=== PATIENT | female | born 1940 | race Caucasian/White ===

== ENCOUNTER 2018-09-29 11:45 | Outpatient (RCR) | payer MEDICARE, SELFPAY ==
--- NOTE | 2018-07-02 16:57 | PT.OPPOC ---
Current Diagnoses Low back pain (07/02/18) Provider Visit Care Team Role Provider Type Carolann Morales PA-C Family Provider Advanced Driver Retraining Instructor Primary Care Provider Specialty: Internal Medicine Address: [address] [place] [address], [id number] Email: Ivone Marshall PA-C Attending Provider Physician Specialty: Internal Medicine Address: [address] [place] [address], [id number] Email: Plan Of Care PT-OP-T Assessment and Plan Start: 06/29/18 14:31 Freq: Status: Active Protocol: Document 06/29/18 14:32 SAK (Rec: 07/02/18 16:54 SAK [id number]) Physical Therapy Assessment Rehab Potential Rehabilitation Potential Good Evaluation Complexity Number of Personal Factors/Comorbidities 3 or More Number of Body Systems Impaired 3 Clinical Presentation at Evaluation Evolving Impairments Impairments Activity Tolerance Pain Posture ROM Goals Five Impairment knowledge deficit Assisted Goal (LTG) Patient will be independent in aquatic exercise program for long-term fitness and pain managment Four Impairment ROM Short Term Goal (STG) Improve PSLR to 70 venkatesh STG Duration 1 month Hat Lining Paster Goal (LTG) Improve PSLR to 80 venkatesh LTG Duration 2 months Three Impairment posture Short Term Goal (STG) Patient to demonstrate good understanding of neutral posture and be able to self correct with minimal cues STG Duration 1 month Assisted Goal (LTG) Patient able to verbalize and demonstrate neutral postural alignment without cues for purposes of back protection and healing. LTG Duration 2 months Two Impairment pain Short Term Goal (STG) Decrease pain to no greater than 3/10 STG Duration 1 month Hat Lining Paster Goal (LTG) Decrease pain to no greater than 1/10 with all usual activities LTG Duration 2 months One Impairment activity tolerance Short Term Goal (STG) Improve Oswestry disability index score to no greater than 20% STG Duration 1 month Assisted Goal (LTG) Improve Oswestry disability index score to no greater than 10% LTG Duration 2 months Assessment Summary Assessment Patient is a 77 y/o female who presents for aquatic therapy due to persistent lumbar pain after fall, despite land-based PT and consistent performance of HEP. Feel she would benefit highly from aquatic PT for bouyancy-supported therapeutic exercises including flexibility, strengthening, core stabilization. She is highly receptive and motivated. Physical Therapy Plan Frequency and Duration Frequency of Treatment 2x/Week Duration of Treatment 2 months Plan of Care Start Date 06/29/18 Plan of Care End Date 09/29/18 Therapeutic Interventions Therapeutic Interventions Aquatic Therapy Self-Care/Home Management Modalities Cold Pack/Ice Massage Next Visit Focus/Plan Next Note Type Treatment Note Next Visit Plan Initiate aquatic therapy Plan of Care Dates Plan of Care Start Date 06/29/18 Plan of Care End Date 09/29/18 Please Sign and Return: I have reviewed this Plan of Care and certify that the skilled therapy services above are required to meet the patient?s needs. Physician Signature Date Printed Name and Credentials Clinical Instructor Signature Printed Name and Credentials
--- NOTE | 2018-07-02 16:57 | PT.OIE ---
Current Diagnoses Low back pain (07/02/18) Provider Visit Care Team Role Provider Type Carolann Morales PA-C Family Provider Advanced Bat Lathe Operator Primary Care Provider Specialty: Internal Medicine Address: [address] [place] [address], [phone] Email: Ivone Marshall PA-C Attending Provider Physician Specialty: Internal Medicine Address: [address] [place] [address], [id number] Email: Physical Therapy Initial Evaluation PT-OP-A Visit Information Start: 06/29/18 14:31 Freq: Status: Active Protocol: Document 06/29/18 14:32 SAK (Rec: 06/29/18 15:16 SAK [id number]) Out-Patient Physical Therapy Visit Information Visit Information Visit Type Initial Evaluation Visit Note 09/26 Visit Start Time 14:32 Visit Stop Time 15:15 Total Visit Minutes 43 Visit Number 1 Number of DOPE HOUSE OPERATOR HELPER Visits 0 PT-OP-B Current Condition Start: 06/29/18 14:31 Freq: Status: Active Protocol: Document 06/29/18 14:32 SAK (Rec: 06/29/18 15:16 SAK [id number]) Current Condition History of Current Condition Onset Date 02/04/18. Current Complaints Function-limiting LBP History of Current Condition Fell onto back backwards while moving furniture. Pain initially severe, getting better but has had aquatic therapy recommended. No back pain prior to this injury. Prior BLADE venkatesh, right 10/25 anterior, left 2007 posterior approach. Prior Treatments and Tests No x-ray. Future Testing and Treatments Planned PT at [facility]. Has HEP, bridging painful, otherwise good spenser for LTR, SLR, prone leg lift, elliptical, DKTC, hamstring stretch, rowing, shoulder rows. Treatment Goals Patient/Caregiver Goals Eliminate LBP. Prior Functional Status Baseline Function- ADL's Independent Baseline Function- Mobility Independent Baseline Function- Gait Independent, no device Baseline Function- Work/School retired, indep with housework and yardwork Current Functional Impairments (Reported) Functional Limitations- ADL's painful Functional Limitations- Mobility/Gait painful Functional Limitations- Work/School housework and yardwork painful Personal Factors Other Personal Factors That May Effect age; 77 Therapy/Recovery PT-OP-C Subjective Start: 06/29/18 14:31 Freq: Status: Active Protocol: Document 06/29/18 14:32 SAK (Rec: 07/02/18 16:54 [facility] [id number]) Patient Questionnaires Oswestry Low Back Index Oswestry Score 34 Oswestry Impairment 20 to 39% Impaired (Score 20- 39) OP-PT Pain Assessment Pain Assessment Grid Paper Pain Assessment Grid Completed Yes Location Bilateral Lower Posterior Back Pain Location Details bilateral lumbar spine Intensity 6 Home Pain Medication Use Pain Medications Used No Pain Behaviors Pain Behaviors Facial Grimacing Wincing PT-OP-F Manual Assessment Start: 06/29/18 14:31 Freq: Status: Active Protocol: Document 06/29/18 14:32 SAK (Rec: 07/02/18 16:54 [facility] [id number]) Manual Assessments Soft Tissue Assessment Soft Tissue Mobility Assessment Decreased soft tissue mobility bilateral lumbar paraspinals Joint Mobility Assessment Joint Mobility Assessment Hypomobile PA's lumbar spine PT-OP-G Mobility & Gait Start: 06/29/18 14:31 Freq: Status: Active Protocol: Document 06/29/18 14:32 SAK (Rec: 07/02/18 16:54 [facility] [id number]) OP Mobility Evaluation Transfers Sit to Stand painful Functional Movements Lifting and Carrying painful Squats painful OP Gait Assessment Gait Deviations General Gait Pattern Decreased Stride Length Decreased Feet Clearance PT-OP-J Posture/Palpation/Skin Start: 06/29/18 14:31 Freq: Status: Active Protocol: Document 06/29/18 14:32 SAK (Rec: 07/02/18 16:54 [facility] [id number]) Posture Evaluation Position Standing T-Spine Posture Increased Kyphosis L-Spine Posture Increased Lordosis Hip Posture (L) Externally Rotated (R) Externally Rotated Palpation Assessment Location lumbar spine Palpation Findings Soft Tissue Tightness Tenderness PT-OP-K Range of Motion Start: 06/29/18 14:31 Freq: Status: Active Protocol: Document 06/29/18 14:32 SAK (Rec: 07/02/18 16:54 [facility] [id number]) Hip Goniometric Range of Motion Hip Measured in Degrees Right Straight Leg Raise 55 Left Hip ROM WFL No Straight Leg Raise 60 Hip ROM Limitations Hip ROM Limitations Soft Tissue Tightness PT-OP-L Special Tests Start: 06/29/18 14:31 Freq: Status: Active Protocol: Document 06/29/18 14:32 [facility] (Rec: 07/02/18 16:54 [facility] [id number]) Special Tests Hip Special Tests SKYE Test Results negative Xavier Test Results positive muscle tightness Scour Test Test Results negative PT-OP-M Strength Start: 06/29/18 14:31 Freq: Status: Active Protocol: Document 06/29/18 14:32 SAK (Rec: 07/02/18 16:54 [facility] [id number]) Trunk Strength Trunk Manual Muscle Testing Testing Position Supine Core Stabilization Poor awareness and ability to activate transverse abdominis and multifidi Hip Strength Hip Manual Muscle Testing Left Flexion (L2) 4 Good Extension (S1) 4- Good- Abduction 4- Good- External Rotation 4- Good- Internal Rotation 4 Good Right Flexion (L2) 4 Good Extension (S1) 4- Good- Abduction 4- Good- External Rotation 4- Good- Internal Rotation 4 Good Knee Strength Knee Manual Muscle Testing Left Flexion (S2) 4 Good Extension (L3) 4+ Good+ Right Flexion (S2) 4 Good Extension (L3) 4+ Good+ Ankle/Foot Strength Ankle and Foot Manual Muscle Testing Left Dorsiflexion (L4) 4+ Good+ Plantarflexion (S1) 4+ Good+ Right Dorsiflexion (L4) 4+ Good+ Plantarflexion (S1) 4+ Good+ PT-OP-Q Treatments Start: 06/29/18 14:31 Freq: Status: Active Protocol: Document 06/29/18 14:32 [facility] (Rec: 07/02/18 16:54 [facility] [id number]) Self-Care/Home Management Treatment Education Patient Education Body Mechanics Posture Other Education core stabilization with all movements and in all positions for back protection, neutral postural alignment using wall as reference; postural isometric PT-OP-R Modalities Start: 06/29/18 14:31 Freq: Status: Active Protocol: Document 06/29/18 14:32 [facility] (Rec: 07/02/18 16:54 [facility] [id number]) Hot Pack/Cold Pack Treatment Cold Pack Patient Position Hooklying Treatment Duration (minutes) 10 PT-OP-T Assessment and Plan Start: 06/29/18 14:31 Freq: Status: Active Protocol: Document 06/29/18 14:32 [facility] (Rec: 07/02/18 16:54 [facility] [id number]) Physical Therapy Assessment Rehab Potential Rehabilitation Potential Good Evaluation Complexity Number of Personal Factors/Comorbidities 3 or More Number of Body Systems Impaired 3 Clinical Presentation at Evaluation Evolving Impairments Impairments Activity Tolerance Pain Posture ROM Goals Five Impairment knowledge deficit Turn Operator Goal (LTG) Patient will be independent in aquatic exercise program for long-term fitness and pain managment Four Impairment ROM Short Term Goal (STG) Improve PSLR to 70 venkatesh STG Duration 1 month Turn Operator Goal (LTG) Improve PSLR to 80 venkatesh LTG Duration 2 months Three Impairment posture Short Term Goal (STG) Patient to demonstrate good understanding of neutral posture and be able to self correct with minimal cues STG Duration 1 month Turn Operator Goal (LTG) Patient able to verbalize and demonstrate neutral postural alignment without cues for purposes of back protection and healing. LTG Duration 2 months Two Impairment pain Short Term Goal (STG) Decrease pain to no greater than 3/10 STG Duration 1 month Half-Way Goal (LTG) Decrease pain to no greater than 1/10 with all usual activities LTG Duration 2 months One Impairment activity tolerance Short Term Goal (STG) Improve Oswestry disability index score to no greater than 20% STG Duration 1 month Half-Way Goal (LTG) Improve Oswestry disability index score to no greater than 10% LTG Duration 2 months Assessment Summary Assessment Patient is a 77 y/o female who presents for aquatic therapy due to persistent lumbar pain after fall, despite land-based PT and consistent performance of HEP. Feel she would benefit highly from aquatic PT for bouyancy-supported therapeutic exercises including flexibility, strengthening, core stabilization. She is highly receptive and motivated. Physical Therapy Plan Frequency and Duration Frequency of Treatment 2x/Week Duration of Treatment 2 months Plan of Care Start Date 06/29/18 Plan of Care End Date 09/29/18 Therapeutic Interventions Therapeutic Interventions Aquatic Therapy Self-Care/Home Management Modalities Cold Pack/Ice Massage Next Visit Focus/Plan Next Note Type Treatment Note Next Visit Plan Initiate aquatic therapy
--- NOTE | 2018-07-03 12:48 | PT.OTN ---
Current Diagnoses Low back pain (07/02/18) Physical Therapy Treatment Note PT-OP-A Visit Information Start: 06/29/18 14:31 Freq: Status: Active Protocol: Document 07/02/18 12:38 SAK (Rec: 07/03/18 12:46 [facility] [id number]) Out-Patient Physical Therapy Visit Information Visit Information Visit Type Treatment Note Visit Note 10/27 Visit Start Time 11:45 Visit Stop Time 12:30 Total Visit Minutes 45 Visit Number 2 Number of COTTON PULLER Visits 0 PT-OP-B Current Condition Start: 06/29/18 14:31 Freq: Status: Active Protocol: Document 06/29/18 14:32 SAK (Rec: 06/29/18 15:16 SAK [id number]) Current Condition History of Current Condition Onset Date 02/04/18. Current Complaints Function-limiting LBP History of Current Condition Fell onto back backwards while moving furniture. Pain initially severe, getting better but has had aquatic therapy recommended. No back pain prior to this injury. Prior BLADE venkatesh, right 10/25 anterior, left 2007 posterior approach. Prior Treatments and Tests No x-ray. Future Testing and Treatments Planned PT at [facility]. Has HEP, bridging painful, otherwise good spenser for LTR, SLR, prone leg lift, elliptical, DKTC, hamstring stretch, rowing, shoulder rows. Treatment Goals Patient/Caregiver Goals Eliminate LBP. Prior Functional Status Baseline Function- ADL's Independent Baseline Function- Mobility Independent Baseline Function- Gait Independent, no device Baseline Function- Work/School retired, indep with housework and yardwork Current Functional Impairments (Reported) Functional Limitations- ADL's painful Functional Limitations- Mobility/Gait painful Functional Limitations- Work/School housework and yardwork painful Personal Factors Other Personal Factors That May Effect age; 77 Therapy/Recovery PT-OP-C Subjective Start: 06/29/18 14:31 Freq: Status: Active Protocol: Document 07/02/18 11:45 SAK (Rec: 07/02/18 16:54 SAK [id number]) OP-PT Subjective Patient Comments Patient Comments No new c/o. Excited to try aquatic therapy. Trying to be more aware of posture and abdominal corseting as instructed. Patient Questionnaires Oswestry Low Back Index Oswestry Score 34 Oswestry Impairment 20 to 39% Impaired (Score 20- 39) OP-PT Pain Assessment Pain Assessment Grid Paper Pain Assessment Grid Completed Yes Location Bilateral Lower Posterior Back Pain Location Details bilateral lumbar spine Intensity 6 Home Pain Medication Use Pain Medications Used No Pain Behaviors Pain Behaviors Facial Grimacing [place]incing PT-OP-F Manual Assessment Start: 06/29/18 14:31 Freq: Status: Active Protocol: Document 06/29/18 14:32 SAK (Rec: 07/02/18 16:54 [facility] [id number]) Manual Assessments Soft Tissue Assessment Soft Tissue Mobility Assessment Decreased soft tissue mobility bilateral lumbar paraspinals Joint Mobility Assessment Joint Mobility Assessment Hypomobile PA's lumbar spine PT-OP-G Mobility & Gait Start: 06/29/18 14:31 Freq: Status: Active Protocol: Document 06/29/18 14:32 SAK (Rec: 07/02/18 16:54 [facility] [id number]) OP Mobility Evaluation Transfers Sit to Stand painful Functional Movements Lifting and Carrying painful Squats painful OP Gait Assessment Gait Deviations General Gait Pattern Decreased Stride Length Decreased Feet Clearance PT-OP-J Posture/Palpation/Skin Start: 06/29/18 14:31 Freq: Status: Active Protocol: Document 06/29/18 14:32 SAK (Rec: 07/02/18 16:54 [facility] [id number]) Posture Evaluation Position Standing T-Spine Posture Increased Kyphosis L-Spine Posture Increased Lordosis Hip Posture (L) Externally Rotated (R) Externally Rotated Palpation Assessment Location lumbar spine Palpation Findings Soft Tissue Tightness Tenderness PT-OP-K Range of Motion Start: 06/29/18 14:31 Freq: Status: Active Protocol: Document 06/29/18 14:32 SAK (Rec: 07/02/18 16:54 [facility] [id number]) Hip Goniometric Range of Motion Hip Measured in Degrees Right Straight Leg Raise 55 Left Hip ROM WFL No Straight Leg Raise 60 Hip ROM Limitations Hip ROM Limitations Soft Tissue Tightness PT-OP-L Special Tests Start: 06/29/18 14:31 Freq: Status: Active Protocol: Document 06/29/18 14:32 SAK (Rec: 07/02/18 16:54 [facility] [id number]) Special Tests Hip Special Tests SKYE Test Results negative Xavier Test Results positive muscle tightness Scour Test Test Results negative PT-OP-M Strength Start: 06/29/18 14:31 Freq: Status: Active Protocol: Document 06/29/18 14:32 SAK (Rec: 07/02/18 16:54 [facility] [id number]) Trunk Strength Trunk Manual Muscle Testing Testing Position Supine Core Stabilization Poor awareness and ability to activate transverse abdominis and multifidi Hip Strength Hip Manual Muscle Testing Left Flexion (L2) 4 Good Extension (S1) 4- Good- Abduction 4- Good- External Rotation 4- Good- Internal Rotation 4 Good Right Flexion (L2) 4 Good Extension (S1) 4- Good- Abduction 4- Good- External Rotation 4- Good- Internal Rotation 4 Good Knee Strength Knee Manual Muscle Testing Left Flexion (S2) 4 Good Extension (L3) 4+ Good+ Right Flexion (S2) 4 Good Extension (L3) 4+ Good+ Ankle/Foot Strength Ankle and Foot Manual Muscle Testing Left Dorsiflexion (L4) 4+ Good+ Plantarflexion (S1) 4+ Good+ Right Dorsiflexion (L4) 4+ Good+ Plantarflexion (S1) 4+ Good+ PT-OP-Q Treatments Start: 06/29/18 14:31 Freq: Status: Active Protocol: Document 06/29/18 14:32 [facility] (Rec: 07/02/18 16:54 [facility] [id number]) Self-Care/Home Management Treatment Education Patient Education Body Mechanics Posture Other Education core stabilization with all movements and in all positions for back protection, neutral postural alignment using wall as reference; postural isometric PT-OP-R Modalities Start: 06/29/18 14:31 Freq: Status: Active Protocol: Document 06/29/18 14:32 [facility] (Rec: 07/02/18 16:54 [facility] [id number]) Hot Pack/Cold Pack Treatment Cold Pack Patient Position Hooklying Treatment Duration (minutes) 10 PT-OP-S Aquatic Treatment Start: 06/29/18 14:31 Freq: Status: Active Protocol: Document 07/02/18 12:38 [facility] (Rec: 07/03/18 12:46 [facility] [id number]) Aquatics Treatment Pool Entry/Exit Pool Entry/Exit Method Stairs Assistance Standby Assistance Water Walking fwd, bck, november Water Level Chest Level Level of Assistance Verbal Cues Lower Extremity Exercises hip flex/ext, ab/ad, circles Body Position Standing Water Level Chest Level Reps/Duration 10 Comments emphasis on core stab Lower Extremity Stretches DKTC, SKTC Body Position Standing Water Level Abbot Comments at wall hamstrings, hip add, IT band Body Position Standing Water Level Chest Level Reps/Duration 2 Comments small ankle floats Upper Extremity Exercises shoulder hor ab/ad, flex/ext Details venkatesh and unil Body Position Standing Water Level Chest Level Comments emphasis on core stab Spinal Exercises rhythmic stabilization Body Position Standing Water Level Chest Level Comments manual resistance at hips; verbal and manual cues Abbot Activities Abbot Activities Bicycle [place] Hip Abduction/Adduction Other Activities deep water hang 1 min x 2 with deep breathing Equipment belt Duration 15 min PT-OP-T Assessment and Plan Start: 06/29/18 14:31 Freq: Status: Active Protocol: Document 07/02/18 12:38 SAK (Rec: 07/03/18 12:46 SAK [id number]) Physical Therapy Assessment Goals Five Impairment knowledge deficit Programs Assistant Goal (LTG) Patient will be independent in aquatic exercise program for long-term fitness and pain managment Four Impairment ROM Short Term Goal (STG) Improve PSLR to 70 venkatesh STG Duration 1 month Assisted Goal (LTG) Improve PSLR to 80 venkatesh LTG Duration 2 months Three Impairment posture Short Term Goal (STG) Patient to demonstrate good understanding of neutral posture and be able to self correct with minimal cues STG Duration 1 month Assisted Goal (LTG) Patient able to verbalize and demonstrate neutral postural alignment without cues for purposes of back protection and healing. LTG Duration 2 months Two Impairment pain Short Term Goal (STG) Decrease pain to no greater than 3/10 STG Duration 1 month Programs Assistant Goal (LTG) Decrease pain to no greater than 1/10 with all usual activities LTG Duration 2 months One Impairment activity tolerance Short Term Goal (STG) Improve Oswestry disability index score to no greater than 20% STG Duration 1 month Programs Assistant Goal (LTG) Improve Oswestry disability index score to no greater than 10% LTG Duration 2 months Assessment Summary Assessment Good tolerance for first aquatic therapy session. Frequent verbal and manual cues for postural alignment and core stab, very challenged with rhythmic stabiization, has difficulty activate transverse abdominis. Physical Therapy Plan Frequency and Duration Frequency of Treatment 2x/Week Duration of Treatment 2 months Plan of Care Start Date 06/29/18 Plan of Care End Date 09/29/18 Next Visit Focus/Plan Next Note Type Treatment Note Next Visit Plan Assess response to first aquatic therapy session, progress with emphasis on core stab, strengthening. Initiate deep water DLS.
--- NOTE | 2018-07-09 13:49 | PT.OTN ---
Current Diagnoses Low back pain (07/09/18) Physical Therapy Treatment Note PT-OP-A Visit Information Start: 06/29/18 14:31 Freq: Status: Active Protocol: Document 07/09/18 10:20 ORION (Rec: 07/09/18 13:49 LJ [id number]) Out-Patient Physical Therapy Visit Information Visit Information Visit Type Aquatic Treatment Note Visit Note 11/24 Visit Start Time 10:20 Visit Stop Time 11:00 Total Visit Minutes 40 Visit Number 3 Number of TRANSITION OF CARE SPECIALIST Visits 1 PT-OP-B Current Condition Start: 06/29/18 14:31 Freq: Status: Active Protocol: Document 06/29/18 14:32 SAK (Rec: 06/29/18 15:16 SAK [id number]) Current Condition History of Current Condition Onset Date 02/04/18. Current Complaints Function-limiting LBP History of Current Condition Fell onto back backwards while moving furniture. Pain initially severe, getting better but has had aquatic therapy recommended. No back pain prior to this injury. Prior BLADE venkatesh, right 10/25 anterior, left 2007 posterior approach. Prior Treatments and Tests No x-ray. Future Testing and Treatments Planned PT at [facility]. Has HEP, bridging painful, otherwise good spenser for LTR, SLR, prone leg lift, elliptical, DKTC, hamstring stretch, rowing, shoulder rows. Treatment Goals Patient/Caregiver Goals Eliminate LBP. Prior Functional Status Baseline Function- ADL's Independent Baseline Function- Mobility Independent Baseline Function- Gait Independent, no device Baseline Function- Work/School retired, indep with housework and yardwork Current Functional Impairments (Reported) Functional Limitations- ADL's painful Functional Limitations- Mobility/Gait painful Functional Limitations- Work/School housework and yardwork painful Personal Factors Other Personal Factors That May Effect age; 77 Therapy/Recovery PT-OP-C Subjective Start: 06/29/18 14:31 Freq: Status: Active Protocol: Document 07/09/18 10:20 ORION (Rec: 07/09/18 13:49 LJ [id number]) OP-PT Subjective Patient Comments Patient Comments Pt reports being very sore after previous aquatic therapy . Claims to be unaware of how to use her core muscles for functional activities. PT-OP-F Manual Assessment Start: 06/29/18 14:31 Freq: Status: Active Protocol: Document 06/29/18 14:32 SAK (Rec: 07/02/18 16:54 SAK [id number]) Manual Assessments Soft Tissue Assessment Soft Tissue Mobility Assessment Decreased soft tissue mobility bilateral lumbar paraspinals Joint Mobility Assessment Joint Mobility Assessment Hypomobile PA's lumbar spine PT-OP-G Mobility & Gait Start: 06/29/18 14:31 Freq: Status: Active Protocol: Document 06/29/18 14:32 SAK (Rec: 07/02/18 16:54 SAK [id number]) OP Mobility Evaluation Transfers Sit to Stand painful Functional Movements Lifting and Carrying painful Squats painful OP Gait Assessment Gait Deviations General Gait Pattern Decreased Stride Length Decreased Feet Clearance PT-OP-J Posture/Palpation/Skin Start: 06/29/18 14:31 Freq: Status: Active Protocol: Document 06/29/18 14:32 SAK (Rec: 07/02/18 16:54 SAK [id number]) Posture Evaluation Position Standing T-Spine Posture Increased Kyphosis L-Spine Posture Increased Lordosis Hip Posture (L) Externally Rotated (R) Externally Rotated Palpation Assessment Location lumbar spine Palpation Findings Soft Tissue Tightness Tenderness PT-OP-K Range of Motion Start: 06/29/18 14:31 Freq: Status: Active Protocol: Document 06/29/18 14:32 SAK (Rec: 07/02/18 16:54 SAK [id number]) Hip Goniometric Range of Motion Hip Measured in Degrees Right Straight Leg Raise 55 Left Hip ROM WFL No Straight Leg Raise 60 Hip ROM Limitations Hip ROM Limitations Soft Tissue Tightness PT-OP-L Special Tests Start: 06/29/18 14:31 Freq: Status: Active Protocol: Document 06/29/18 14:32 SAK (Rec: 07/02/18 16:54 [facility] [id number]) Special Tests Hip Special Tests SKYE Test Results negative Xavier Test Results positive muscle tightness Scour Test Test Results negative PT-OP-M Strength Start: 06/29/18 14:31 Freq: Status: Active Protocol: Document 06/29/18 14:32 SAK (Rec: 07/02/18 16:54 SAK [id number]) Trunk Strength Trunk Manual Muscle Testing Testing Position Supine Core Stabilization Poor awareness and ability to activate transverse abdominis and multifidi Hip Strength Hip Manual Muscle Testing Left Flexion (L2) 4 Good Extension (S1) 4- Good- Abduction 4- Good- External Rotation 4- Good- Internal Rotation 4 Good Right Flexion (L2) 4 Good Extension (S1) 4- Good- Abduction 4- Good- External Rotation 4- Good- Internal Rotation 4 Good Knee Strength Knee Manual Muscle Testing Left Flexion (S2) 4 Good Extension (L3) 4+ Good+ Right Flexion (S2) 4 Good Extension (L3) 4+ Good+ Ankle/Foot Strength Ankle and Foot Manual Muscle Testing Left Dorsiflexion (L4) 4+ Good+ Plantarflexion (S1) 4+ Good+ Right Dorsiflexion (L4) 4+ Good+ Plantarflexion (S1) 4+ Good+ PT-OP-Q Treatments Start: 06/29/18 14:31 Freq: Status: Active Protocol: Document 06/29/18 14:32 SAK (Rec: 07/02/18 16:54 SAK [id number]) Self-Care/Home Management Treatment Education Patient Education Body Mechanics Posture Other Education core stabilization with all movements and in all positions for back protection, neutral postural alignment using wall as reference; postural isometric PT-OP-R Modalities Start: 06/29/18 14:31 Freq: Status: Active Protocol: Document 06/29/18 14:32 SAK (Rec: 07/02/18 16:54 SAK [id number]) Hot Pack/Cold Pack Treatment Cold Pack Patient Position Hooklying Treatment Duration (minutes) 10 PT-OP-S Aquatic Treatment Start: 06/29/18 14:31 Freq: Status: Active Protocol: Document 07/09/18 10:20 LJ (Rec: 07/09/18 13:49 LJ [id number]) Aquatics Treatment Pool Entry/Exit Pool Entry/Exit Method Stairs Assistance Standby Assistance Water Walking fwd, bck, november Water Level Chest Level Level of Assistance Contact Guard Assistance Comments verbal and tactile cues for core stab and posture Lower Extremity Exercises hip flex/ext, ab/ad, circles Body Position Standing Water Level Chest Level Reps/Duration 15 Comments emphasis on core stab. w/ perturbations Spinal Exercises rhythmic stabilization Body Position Standing Water Level Chest Level Comments manual resist at hips, shoulders, ant/post [place] Activities [place] Activities Bicycle Equipment belt Duration 10 Comments belt inadequate for proper floatation. Added noodle but pt unable to manage. Developed cramping in R quads PT-OP-T Assessment and Plan Start: 06/29/18 14:31 Freq: Status: Active Protocol: Document 07/09/18 10:20 ORION (Rec: 07/09/18 13:49 LJ [id number]) Physical Therapy Assessment Goals Five Impairment knowledge deficit Mcfp Goal (LTG) Patient will be independent in aquatic exercise program for long-term fitness and pain managment Four Impairment ROM Short Term Goal (STG) Improve PSLR to 70 venkatesh STG Duration 1 month Mcfp Goal (LTG) Improve PSLR to 80 venkatesh LTG Duration 2 months Three Impairment posture Short Term Goal (STG) Patient to demonstrate good understanding of neutral posture and be able to self correct with minimal cues STG Duration 1 month Mcfp Goal (LTG) Patient able to verbalize and demonstrate neutral postural alignment without cues for purposes of back protection and healing. LTG Duration 2 months Two Impairment pain Short Term Goal (STG) Decrease pain to no greater than 3/10 STG Duration 1 month Composition Instructor Goal (LTG) Decrease pain to no greater than 1/10 with all usual activities LTG Duration 2 months One Impairment activity tolerance Short Term Goal (STG) Improve Oswestry disability index score to no greater than 20% STG Duration 1 month Composition Instructor Goal (LTG) Improve Oswestry disability index score to no greater than 10% LTG Duration 2 months Assessment Summary Assessment Good tolerance for aquatic therapy. Much less movement today than previous session. Improved with TA activation and postural awareness. Continues to require verbal and tactile cues. Increased core stability with rhythmic stabilization. Physical Therapy Plan Frequency and Duration Frequency of Treatment 2x/Week Duration of Treatment 2 months Plan of Care Start Date 06/29/18 Plan of Care End Date 09/29/18 Next Visit Focus/Plan Next Note Type Treatment Note Next Visit Plan Continue to challange core stabilization with static and dynamic exercises. Reevaluate deep water floatation device. Increase posterior chain strength in upper and lower extremeties.
--- NOTE | 2018-08-20 09:49 | PT.OPDS ---
Current Diagnoses Low back pain (07/09/18) Provider Visit Care Team Role Provider Type Carolann Morales PA-C Family Provider Advanced English Teacher Primary Care Provider Specialty: Internal Medicine Address: [address] [place] [address], [id number] Email: Ivone Marshall PA-C Attending Provider Physician Specialty: Internal Medicine Address: [address] [place] [address], [address] Email: Visit Number Visit Number 3 Discharge Summary PT-OP-B Current Condition Start: 06/29/18 14:31 Freq: Status: Active Protocol: Document 06/29/18 14:32 SAK (Rec: 06/29/18 15:16 SAK [id number]) Current Condition History of Current Condition Onset Date 02/04/18. Current Complaints Function-limiting LBP History of Current Condition Fell onto back backwards while moving furniture. Pain initially severe, getting better but has had aquatic therapy recommended. No back pain prior to this injury. Prior BLADE venkatesh, right 10/25 anterior, left 2007 posterior approach. Prior Treatments and Tests No x-ray. Future Testing and Treatments Planned PT at [facility]. Has HEP, bridging painful, otherwise good spenser for LTR, SLR, prone leg lift, elliptical, DKTC, hamstring stretch, rowing, shoulder rows. Treatment Goals Patient/Caregiver Goals Eliminate LBP. Prior Functional Status Baseline Function- ADL's Independent Baseline Function- Mobility Independent Baseline Function- Gait Independent, no device Baseline Function- Work/School retired, indep with housework and yardwork Current Functional Impairments (Reported) Functional Limitations- ADL's painful Functional Limitations- Mobility/Gait painful Functional Limitations- Work/School housework and yardwork painful Personal Factors Other Personal Factors That May Effect age; 77 Therapy/Recovery PT-OP-C Subjective Start: 06/29/18 14:31 Freq: Status: Active Protocol: Document 07/09/18 10:20 LJ (Rec: 07/09/18 13:49 LJ [id number]) OP-PT Subjective Patient Comments Patient Comments Pt reports being very sore after previous aquatic therapy . Claims to be unaware of how to use her core muscles for functional activities. PT-OP-F Manual Assessment Start: 06/29/18 14:31 Freq: Status: Active Protocol: Document 06/29/18 14:32 SAK (Rec: 07/02/18 16:54 SAK [id number]) Manual Assessments Soft Tissue Assessment Soft Tissue Mobility Assessment Decreased soft tissue mobility bilateral lumbar paraspinals Joint Mobility Assessment Joint Mobility Assessment Hypomobile PA's lumbar spine PT-OP-G Mobility & Gait Start: 06/29/18 14:31 Freq: Status: Active Protocol: Document 06/29/18 14:32 SAK (Rec: 07/02/18 16:54 SAK [id number]) OP Mobility Evaluation Transfers Sit to Stand painful Functional Movements Lifting and Carrying painful Squats painful OP Gait Assessment Gait Deviations General Gait Pattern Decreased Stride Length Decreased Feet Clearance PT-OP-J Posture/Palpation/Skin Start: 06/29/18 14:31 Freq: Status: Active Protocol: Document 06/29/18 14:32 SAK (Rec: 07/02/18 16:54 SAK [id number]) Posture Evaluation Position Standing T-Spine Posture Increased Kyphosis L-Spine Posture Increased Lordosis Hip Posture (L) Externally Rotated (R) Externally Rotated Palpation Assessment Location lumbar spine Palpation Findings Soft Tissue Tightness Tenderness PT-OP-K Range of Motion Start: 06/29/18 14:31 Freq: Status: Active Protocol: Document 06/29/18 14:32 SAK (Rec: 07/02/18 16:54 SAK [id number]) Hip Goniometric Range of Motion Hip Measured in Degrees Right Straight Leg Raise 55 Left Hip ROM WFL No Straight Leg Raise 60 Hip ROM Limitations Hip ROM Limitations Soft Tissue Tightness PT-OP-L Special Tests Start: 06/29/18 14:31 Freq: Status: Active Protocol: Document 06/29/18 14:32 SAK (Rec: 07/02/18 16:54 SAK [id number]) Special Tests Hip Special Tests SKYE Test Results negative Xavier Test Results positive muscle tightness Scour Test Test Results negative PT-OP-M Strength Start: 06/29/18 14:31 Freq: Status: Active Protocol: Document 06/29/18 14:32 SAK (Rec: 07/02/18 16:54 SAK [id number]) Trunk Strength Trunk Manual Muscle Testing Testing Position Supine Core Stabilization Poor awareness and ability to activate transverse abdominis and multifidi Hip Strength Hip Manual Muscle Testing Left Flexion (L2) 4 Good Extension (S1) 4- Good- Abduction 4- Good- External Rotation 4- Good- Internal Rotation 4 Good Right Flexion (L2) 4 Good Extension (S1) 4- Good- Abduction 4- Good- External Rotation 4- Good- Internal Rotation 4 Good Knee Strength Knee Manual Muscle Testing Left Flexion (S2) 4 Good Extension (L3) 4+ Good+ Right Flexion (S2) 4 Good Extension (L3) 4+ Good+ Ankle/Foot Strength Ankle and Foot Manual Muscle Testing Left Dorsiflexion (L4) 4+ Good+ Plantarflexion (S1) 4+ Good+ Right Dorsiflexion (L4) 4+ Good+ Plantarflexion (S1) 4+ Good+ PT-OP-T Assessment and Plan Start: 06/29/18 14:31 Freq: Status: Active Protocol: Document 08/03/18 09:48 GLORIA (Rec: 08/20/18 09:49 [facility] [id number]) Physical Therapy Assessment Progress Towards Goals Progress Towards Goals Slow Progress due to Medical Issues Physical Therapy Plan Discharge Physical Therapy Discharge Reasons Patient Request Discharge Comments see above
--- NOTE | 2018-09-09 08:11 | PT.OTN ---
Current Diagnoses Low back pain (09/08/18) Physical Therapy Treatment Note PT-OP-A Visit Information Start: 06/29/18 14:31 Freq: Status: Active Protocol: Document 09/08/18 11:45 [facility] (Rec: 09/09/18 08:10 [facility] [id number]) Out-Patient Physical Therapy Visit Information Visit Information Visit Type Treatment Note Visit Note Patient requests resume PT due to improved health, wants to try aquatic PT again to see if it is something she feels she can continue for the heatlh of her back. PT-OP-B Current Condition Start: 06/29/18 14:31 Freq: Status: Active Protocol: Document 06/29/18 14:32 SAK (Rec: 06/29/18 15:16 SAK [id number]) Current Condition History of Current Condition Onset Date 02/04/18. Current Complaints Function-limiting LBP History of Current Condition Fell onto back backwards while moving furniture. Pain initially severe, getting better but has had aquatic therapy recommended. No back pain prior to this injury. Prior BLADE venkatesh, right 10/25 anterior, left 2007 posterior approach. Prior Treatments and Tests No x-ray. Future Testing and Treatments Planned PT at [facility]. Has HEP, bridging painful, otherwise good spenser for LTR, SLR, prone leg lift, elliptical, DKTC, hamstring stretch, rowing, shoulder rows. Treatment Goals Patient/Caregiver Goals Eliminate LBP. Prior Functional Status Baseline Function- ADL's Independent Baseline Function- Mobility Independent Baseline Function- Gait Independent, no device Baseline Function- Work/School retired, indep with housework and yardwork Current Functional Impairments (Reported) Functional Limitations- ADL's painful Functional Limitations- Mobility/Gait painful Functional Limitations- Work/School housework and yardwork painful Personal Factors Other Personal Factors That May Effect age; 77 Therapy/Recovery PT-OP-C Subjective Start: 06/29/18 14:31 Freq: Status: Active Protocol: Document 09/08/18 11:45 [facility] (Rec: 09/09/18 08:11 [facility] [id number]) OP-PT Subjective Patient Comments Patient Comments Patient reports UTI's have resolved, wants to try aquatic PT again. PT-OP-F Manual Assessment Start: 06/29/18 14:31 Freq: Status: Active Protocol: Document 06/29/18 14:32 SAK (Rec: 07/02/18 16:54 [facility] [id number]) Manual Assessments Soft Tissue Assessment Soft Tissue Mobility Assessment Decreased soft tissue mobility bilateral lumbar paraspinals Joint Mobility Assessment Joint Mobility Assessment Hypomobile PA's lumbar spine PT-OP-G Mobility & Gait Start: 06/29/18 14:31 Freq: Status: Active Protocol: Document 06/29/18 14:32 [facility] (Rec: 07/02/18 16:54 SAK [id number]) OP Mobility Evaluation Transfers Sit to Stand painful Functional Movements Lifting and Carrying painful Squats painful OP Gait Assessment Gait Deviations General Gait Pattern Decreased Stride Length Decreased Feet Clearance PT-OP-J Posture/Palpation/Skin Start: 06/29/18 14:31 Freq: Status: Active Protocol: Document 06/29/18 14:32 [facility] (Rec: 07/02/18 16:54 [facility] [id number]) Posture Evaluation Position Standing T-Spine Posture Increased Kyphosis L-Spine Posture Increased Lordosis Hip Posture (L) Externally Rotated (R) Externally Rotated Palpation Assessment Location lumbar spine Palpation Findings Soft Tissue Tightness Tenderness PT-OP-K Range of Motion Start: 06/29/18 14:31 Freq: Status: Active Protocol: Document 06/29/18 14:32 [facility] (Rec: 07/02/18 16:54 [facility] [id number]) Hip Goniometric Range of Motion Hip Measured in Degrees Right Straight Leg Raise 55 Left Hip ROM WFL No Straight Leg Raise 60 Hip ROM Limitations Hip ROM Limitations Soft Tissue Tightness PT-OP-L Special Tests Start: 06/29/18 14:31 Freq: Status: Active Protocol: Document 06/29/18 14:32 [facility] (Rec: 07/02/18 16:54 [facility] [id number]) Special Tests Hip Special Tests SKYE Test Results negative Xavier Test Results positive muscle tightness Scour Test Test Results negative PT-OP-M Strength Start: 06/29/18 14:31 Freq: Status: Active Protocol: Document 06/29/18 14:32 [facility] (Rec: 07/02/18 16:54 [facility] [id number]) Trunk Strength Trunk Manual Muscle Testing Testing Position Supine Core Stabilization Poor awareness and ability to activate transverse abdominis and multifidi Hip Strength Hip Manual Muscle Testing Left Flexion (L2) 4 Good Extension (S1) 4- Good- Abduction 4- Good- External Rotation 4- Good- Internal Rotation 4 Good Right Flexion (L2) 4 Good Extension (S1) 4- Good- Abduction 4- Good- External Rotation 4- Good- Internal Rotation 4 Good Knee Strength Knee Manual Muscle Testing Left Flexion (S2) 4 Good Extension (L3) 4+ Good+ Right Flexion (S2) 4 Good Extension (L3) 4+ Good+ Ankle/Foot Strength Ankle and Foot Manual Muscle Testing Left Dorsiflexion (L4) 4+ Good+ Plantarflexion (S1) 4+ Good+ Right Dorsiflexion (L4) 4+ Good+ Plantarflexion (S1) 4+ Good+ PT-OP-Q Treatments Start: 06/29/18 14:31 Freq: Status: Active Protocol: Document 06/29/18 14:32 [facility] (Rec: 07/02/18 16:54 [facility] [id number]) Self-Care/Home Management Treatment Education Patient Education Body Mechanics Posture Other Education core stabilization with all movements and in all positions for back protection, neutral postural alignment using wall as reference; postural isometric PT-OP-R Modalities Start: 06/29/18 14:31 Freq: Status: Active Protocol: Document 06/29/18 14:32 [facility] (Rec: 07/02/18 16:54 [facility] [id number]) Hot Pack/Cold Pack Treatment Cold Pack Patient Position Hooklying Treatment Duration (minutes) 10 PT-OP-S Aquatic Treatment Start: 06/29/18 14:31 Freq: Status: Active Protocol: Document 09/08/18 11:45 [facility] (Rec: 09/09/18 08:10 [facility] [id number]) Aquatics Treatment Pool Entry/Exit Pool Entry/Exit Method Stairs Assistance Standby Assistance Water Walking fwd, bck, november Water Level Chest Level Level of Assistance Contact Guard Assistance Comments verbal and tactile cues for core stab and posture Lower Extremity Exercises hip flex/ext, ab/ad, circles Body Position Standing Water Level Chest Level Reps/Duration 10 Comments emphasis on core stab. w/ perturbations Lower Extremity Stretches hamstrings, hip add, IT band Body Position Standing Water Level Chest Level Reps/Duration 2 Comments small ankle floats Upper Extremity Exercises shoulder hor ab/ad, flex/ext Details venkatesh and unil Body Position Standing Water Level Chest Level Comments emphasis on core stab [place] Activities [place] Activities Bicycle [place] Running Equipment noodle in front Duration 10 PT-OP-T Assessment and Plan Start: 06/29/18 14:31 Freq: Status: Active Protocol: Document 09/08/18 11:45 GLORIA (Rec: 09/09/18 08:10 [facility] [id number]) Physical Therapy Assessment Goals Five Impairment knowledge deficit Custodial Goal (LTG) Patient will be independent in aquatic exercise program for long-term fitness and pain managment Four Impairment ROM Short Term Goal (STG) Improve PSLR to 70 venkatesh STG Duration 1 month Electronics Engineering Professor Goal (LTG) Improve PSLR to 80 venkatesh LTG Duration 2 months Three Impairment posture Short Term Goal (STG) Patient to demonstrate good understanding of neutral posture and be able to self correct with minimal cues STG Duration 1 month Electronics Engineering Professor Goal (LTG) Patient able to verbalize and demonstrate neutral postural alignment without cues for purposes of back protection and healing. LTG Duration 2 months Two Impairment pain Short Term Goal (STG) Decrease pain to no greater than 3/10 STG Duration 1 month Custodial Goal (LTG) Decrease pain to no greater than 1/10 with all usual activities LTG Duration 2 months One Impairment activity tolerance Short Term Goal (STG) Improve Oswestry disability index score to no greater than 20% STG Duration 1 month Electronics Engineering Professor Goal (LTG) Improve Oswestry disability index score to no greater than 10% LTG Duration 2 months Assessment Summary Assessment Patient demonstrated improved postural awareness today during aquatic therapy, more receptive to continuing as she feels it decreases her pain and allows for movement. Physical Therapy Plan Next Visit Focus/Plan Next Note Type Treatment Note Next Visit Plan Progress with aquatic therapy exercises for core stabilization, strengthening, flexibility.
--- NOTE | 2018-09-16 15:06 | PT.OTN ---
Current Diagnoses Low back pain (09/15/18) Physical Therapy Treatment Note PT-OP-A Visit Information Start: 06/29/18 14:31 Freq: Status: Active Protocol: Document 09/15/18 11:45 SAK (Rec: 09/16/18 15:06 [facility] [id number]) Out-Patient Physical Therapy Visit Information Visit Information Visit Type Treatment Note Visit Start Time 11:45 Visit Stop Time 12:30 Total Visit Minutes 45 Visit Number 5 Number of ROTO MIXER OPERATOR Visits 0 PT-OP-B Current Condition Start: 06/29/18 14:31 Freq: Status: Active Protocol: Document 06/29/18 14:32 SAK (Rec: 06/29/18 15:16 SAK [id number]) Current Condition History of Current Condition Onset Date 02/04/18. Current Complaints Function-limiting LBP History of Current Condition Fell onto back backwards while moving furniture. Pain initially severe, getting better but has had aquatic therapy recommended. No back pain prior to this injury. Prior BLADE venkatesh, right 10/25 anterior, left 2007 posterior approach. Prior Treatments and Tests No x-ray. Future Testing and Treatments Planned PT at [facility]. Has HEP, bridging painful, otherwise good spenser for LTR, SLR, prone leg lift, elliptical, DKTC, hamstring stretch, rowing, shoulder rows. Treatment Goals Patient/Caregiver Goals Eliminate LBP. Prior Functional Status Baseline Function- ADL's Independent Baseline Function- Mobility Independent Baseline Function- Gait Independent, no device Baseline Function- Work/School retired, indep with housework and yardwork Current Functional Impairments (Reported) Functional Limitations- ADL's painful Functional Limitations- Mobility/Gait painful Functional Limitations- Work/School housework and yardwork painful Personal Factors Other Personal Factors That May Effect age; 77 Therapy/Recovery PT-OP-C Subjective Start: 06/29/18 14:31 Freq: Status: Active Protocol: Document 09/15/18 11:45 SAK (Rec: 09/16/18 15:06 SAK [id number]) OP-PT Subjective Patient Comments Patient Comments Tolerated last aquatic PT session well, states she is glad she didn't wimp out and quit aquatic therapy. PT-OP-F Manual Assessment Start: 06/29/18 14:31 Freq: Status: Active Protocol: Document 06/29/18 14:32 SAK (Rec: 07/02/18 16:54 SAK [id number]) Manual Assessments Soft Tissue Assessment Soft Tissue Mobility Assessment Decreased soft tissue mobility bilateral lumbar paraspinals Joint Mobility Assessment Joint Mobility Assessment Hypomobile PA's lumbar spine PT-OP-G Mobility & Gait Start: 06/29/18 14:31 Freq: Status: Active Protocol: Document 06/29/18 14:32 SAK (Rec: 07/02/18 16:54 SAK [id number]) OP Mobility Evaluation Transfers Sit to Stand painful Functional Movements Lifting and Carrying painful Squats painful OP Gait Assessment Gait Deviations General Gait Pattern Decreased Stride Length Decreased Feet Clearance PT-OP-J Posture/Palpation/Skin Start: 06/29/18 14:31 Freq: Status: Active Protocol: Document 06/29/18 14:32 SAK (Rec: 07/02/18 16:54 SAK [id number]) Posture Evaluation Position Standing T-Spine Posture Increased Kyphosis L-Spine Posture Increased Lordosis Hip Posture (L) Externally Rotated (R) Externally Rotated Palpation Assessment Location lumbar spine Palpation Findings Soft Tissue Tightness Tenderness PT-OP-K Range of Motion Start: 06/29/18 14:31 Freq: Status: Active Protocol: Document 06/29/18 14:32 SAK (Rec: 07/02/18 16:54 [facility] [id number]) Hip Goniometric Range of Motion Hip Measured in Degrees Right Straight Leg Raise 55 Left Hip ROM WFL No Straight Leg Raise 60 Hip ROM Limitations Hip ROM Limitations Soft Tissue Tightness PT-OP-L Special Tests Start: 06/29/18 14:31 Freq: Status: Active Protocol: Document 06/29/18 14:32 SAK (Rec: 07/02/18 16:54 [facility] [id number]) Special Tests Hip Special Tests SKYE Test Results negative Xavier Test Results positive muscle tightness Scour Test Test Results negative PT-OP-M Strength Start: 06/29/18 14:31 Freq: Status: Active Protocol: Document 06/29/18 14:32 SAK (Rec: 07/02/18 16:54 SAK [id number]) Trunk Strength Trunk Manual Muscle Testing Testing Position Supine Core Stabilization Poor awareness and ability to activate transverse abdominis and multifidi Hip Strength Hip Manual Muscle Testing Left Flexion (L2) 4 Good Extension (S1) 4- Good- Abduction 4- Good- External Rotation 4- Good- Internal Rotation 4 Good Right Flexion (L2) 4 Good Extension (S1) 4- Good- Abduction 4- Good- External Rotation 4- Good- Internal Rotation 4 Good Knee Strength Knee Manual Muscle Testing Left Flexion (S2) 4 Good Extension (L3) 4+ Good+ Right Flexion (S2) 4 Good Extension (L3) 4+ Good+ Ankle/Foot Strength Ankle and Foot Manual Muscle Testing Left Dorsiflexion (L4) 4+ Good+ Plantarflexion (S1) 4+ Good+ Right Dorsiflexion (L4) 4+ Good+ Plantarflexion (S1) 4+ Good+ PT-OP-Q Treatments Start: 06/29/18 14:31 Freq: Status: Active Protocol: Document 06/29/18 14:32 [facility] (Rec: 07/02/18 16:54 [facility] [id number]) Self-Care/Home Management Treatment Education Patient Education Body Mechanics Posture Other Education core stabilization with all movements and in all positions for back protection, neutral postural alignment using wall as reference; postural isometric PT-OP-R Modalities Start: 06/29/18 14:31 Freq: Status: Active Protocol: Document 06/29/18 14:32 [facility] (Rec: 07/02/18 16:54 [facility] [id number]) Hot Pack/Cold Pack Treatment Cold Pack Patient Position Hooklying Treatment Duration (minutes) 10 PT-OP-S Aquatic Treatment Start: 06/29/18 14:31 Freq: Status: Active Protocol: Document 09/15/18 11:45 [facility] (Rec: 09/16/18 15:06 [facility] [id number]) Aquatics Treatment Pool Entry/Exit Pool Entry/Exit Method Stairs Assistance Standby Assistance Water Walking fwd, bck, november Water Level Chest Level Level of Assistance Contact Guard Assistance Comments verbal and tactile cues for core stab and posture Lower Extremity Exercises hip flex/ext, ab/ad, circles Body Position Standing Water Level Chest Level Reps/Duration 10 Comments emphasis on core stab. w/ perturbations Lower Extremity Stretches DKTC, SKTC Body Position Standing Water Level [place] Comments at wall hamstrings, hip add, IT band Body Position Standing Water Level Chest Level Reps/Duration 2x Comments small noodle Upper Extremity Exercises shoulder hor ab/ad, flex/ext Details venkatesh and unil Body Position Standing Water Level Chest Level Comments emphasis on core stab [place] Activities [place] Activities Bicycle Cross Country Running Equipment noodle in front Duration 10 PT-OP-T Assessment and Plan Start: 06/29/18 14:31 Freq: Status: Active Protocol: Document 09/15/18 11:45 GLORIA (Rec: 09/16/18 15:06 SAK [id number]) Physical Therapy Assessment Goals Five Impairment knowledge deficit Jd Edwards Goal (LTG) Patient will be independent in aquatic exercise program for long-term fitness and pain managment Four Impairment ROM Short Term Goal (STG) Improve PSLR to 70 venkatesh STG Duration 1 month Jd Edwards Goal (LTG) Improve PSLR to 80 venkatesh LTG Duration 2 months Three Impairment posture Short Term Goal (STG) Patient to demonstrate good understanding of neutral posture and be able to self correct with minimal cues STG Duration 1 month Retirement Goal (LTG) Patient able to verbalize and demonstrate neutral postural alignment without cues for purposes of back protection and healing. LTG Duration 2 months Two Impairment pain Short Term Goal (STG) Decrease pain to no greater than 3/10 STG Duration 1 month Retirement Goal (LTG) Decrease pain to no greater than 1/10 with all usual activities LTG Duration 2 months One Impairment activity tolerance Short Term Goal (STG) Improve Oswestry disability index score to no greater than 20% STG Duration 1 month Jd Edwards Goal (LTG) Improve Oswestry disability index score to no greater than 10% LTG Duration 2 months Assessment Summary Assessment Tolerated session well today with decreased assist or cues needed for postural control with deep water ex. Physical Therapy Plan Frequency and Duration Frequency of Treatment 2x/Week Duration of Treatment 2 months Plan of Care Start Date 06/29/18 Plan of Care End Date 09/29/18 Next Visit Focus/Plan Next Note Type Treatment Note Next Visit Plan Progress with aquatic therapy exercises for core stabilization, strengthening, flexibility.
--- NOTE | 2018-09-23 16:24 | PT.OTN ---
Current Diagnoses Low back pain (09/22/18) Physical Therapy Treatment Note PT-OP-A Visit Information Start: 06/29/18 14:31 Freq: Status: Active Protocol: Document 09/22/18 11:45 SAK (Rec: 09/23/18 16:24 [facility] [id number]) Out-Patient Physical Therapy Visit Information Visit Information Visit Type Aquatic Treatment Note Visit Start Time 11:45 Visit Stop Time 12:30 Total Visit Minutes 45 Visit Number 6 Number of SUB MASTER Visits 0 PT-OP-B Current Condition Start: 06/29/18 14:31 Freq: Status: Active Protocol: Document 06/29/18 14:32 SAK (Rec: 06/29/18 15:16 SAK [id number]) Current Condition History of Current Condition Onset Date 02/04/18. Current Complaints Function-limiting LBP History of Current Condition Fell onto back backwards while moving furniture. Pain initially severe, getting better but has had aquatic therapy recommended. No back pain prior to this injury. Prior BLADE venkatesh, right 10/25 anterior, left 2007 posterior approach. Prior Treatments and Tests No x-ray. Future Testing and Treatments Planned PT at [facility]. Has HEP, bridging painful, otherwise good spenser for LTR, SLR, prone leg lift, elliptical, DKTC, hamstring stretch, rowing, shoulder rows. Treatment Goals Patient/Caregiver Goals Eliminate LBP. Prior Functional Status Baseline Function- ADL's Independent Baseline Function- Mobility Independent Baseline Function- Gait Independent, no device Baseline Function- Work/School retired, indep with housework and yardwork Current Functional Impairments (Reported) Functional Limitations- ADL's painful Functional Limitations- Mobility/Gait painful Functional Limitations- Work/School housework and yardwork painful Personal Factors Other Personal Factors That May Effect age; 77 Therapy/Recovery PT-OP-C Subjective Start: 06/29/18 14:31 Freq: Status: Active Protocol: Document 09/22/18 11:45 SAK (Rec: 09/23/18 16:24 [facility] [id number]) OP-PT Subjective Patient Comments Patient Comments Reports feeling aquatic therapy helping, feeling stronger, less pain, more aware of core musculature. PT-OP-F Manual Assessment Start: 06/29/18 14:31 Freq: Status: Active Protocol: Document 06/29/18 14:32 SAK (Rec: 07/02/18 16:54 SAK [id number]) Manual Assessments Soft Tissue Assessment Soft Tissue Mobility Assessment Decreased soft tissue mobility bilateral lumbar paraspinals Joint Mobility Assessment Joint Mobility Assessment Hypomobile PA's lumbar spine PT-OP-G Mobility & Gait Start: 06/29/18 14:31 Freq: Status: Active Protocol: Document 06/29/18 14:32 SAK (Rec: 07/02/18 16:54 [facility] [id number]) OP Mobility Evaluation Transfers Sit to Stand painful Functional Movements Lifting and Carrying painful Squats painful OP Gait Assessment Gait Deviations General Gait Pattern Decreased Stride Length Decreased Feet Clearance PT-OP-J Posture/Palpation/Skin Start: 06/29/18 14:31 Freq: Status: Active Protocol: Document 06/29/18 14:32 SAK (Rec: 07/02/18 16:54 [facility] [id number]) Posture Evaluation Position Standing T-Spine Posture Increased Kyphosis L-Spine Posture Increased Lordosis Hip Posture (L) Externally Rotated (R) Externally Rotated Palpation Assessment Location lumbar spine Palpation Findings Soft Tissue Tightness Tenderness PT-OP-K Range of Motion Start: 06/29/18 14:31 Freq: Status: Active Protocol: Document 06/29/18 14:32 SAK (Rec: 07/02/18 16:54 [facility] [id number]) Hip Goniometric Range of Motion Hip Measured in Degrees Right Straight Leg Raise 55 Left Hip ROM WFL No Straight Leg Raise 60 Hip ROM Limitations Hip ROM Limitations Soft Tissue Tightness PT-OP-L Special Tests Start: 06/29/18 14:31 Freq: Status: Active Protocol: Document 06/29/18 14:32 SAK (Rec: 07/02/18 16:54 [facility] [id number]) Special Tests Hip Special Tests SKYE Test Results negative Xavier Test Results positive muscle tightness Scour Test Test Results negative PT-OP-M Strength Start: 06/29/18 14:31 Freq: Status: Active Protocol: Document 06/29/18 14:32 SAK (Rec: 07/02/18 16:54 [facility] [id number]) Trunk Strength Trunk Manual Muscle Testing Testing Position Supine Core Stabilization Poor awareness and ability to activate transverse abdominis and multifidi Hip Strength Hip Manual Muscle Testing Left Flexion (L2) 4 Good Extension (S1) 4- Good- Abduction 4- Good- External Rotation 4- Good- Internal Rotation 4 Good Right Flexion (L2) 4 Good Extension (S1) 4- Good- Abduction 4- Good- External Rotation 4- Good- Internal Rotation 4 Good Knee Strength Knee Manual Muscle Testing Left Flexion (S2) 4 Good Extension (L3) 4+ Good+ Right Flexion (S2) 4 Good Extension (L3) 4+ Good+ Ankle/Foot Strength Ankle and Foot Manual Muscle Testing Left Dorsiflexion (L4) 4+ Good+ Plantarflexion (S1) 4+ Good+ Right Dorsiflexion (L4) 4+ Good+ Plantarflexion (S1) 4+ Good+ PT-OP-Q Treatments Start: 06/29/18 14:31 Freq: Status: Active Protocol: Document 06/29/18 14:32 [facility] (Rec: 07/02/18 16:54 [facility] [id number]) Self-Care/Home Management Treatment Education Patient Education Body Mechanics Posture Other Education core stabilization with all movements and in all positions for back protection, neutral postural alignment using wall as reference; postural isometric PT-OP-R Modalities Start: 06/29/18 14:31 Freq: Status: Active Protocol: Document 06/29/18 14:32 [facility] (Rec: 07/02/18 16:54 [facility] [id number]) Hot Pack/Cold Pack Treatment Cold Pack Patient Position Hooklying Treatment Duration (minutes) 10 PT-OP-S Aquatic Treatment Start: 06/29/18 14:31 Freq: Status: Active Protocol: Document 09/22/18 11:45 [facility] (Rec: 09/23/18 16:24 [facility] [id number]) Aquatics Treatment Pool Entry/Exit Pool Entry/Exit Method Stairs Assistance Standby Assistance Water Walking fwd, bck, november Water Level Chest Level Walking Equipment small resistance fins Level of Assistance Contact Guard Assistance Comments verbal and tactile cues for core stab and posture Lower Extremity Exercises hip flex/ext, ab/ad, circles Body Position Standing Water Level Chest Level Equipment small resistance fins Reps/Duration 10 Comments emphasis on core stab. w/ perturbations Lower Extremity Stretches DKTC, SKTC Body Position Standing Water Level [place] Comments at wall hamstrings, hip add, IT band Body Position Standing Water Level Chest Level Reps/Duration 2x Comments small noodle Upper Extremity Exercises shoulder hor ab/ad, flex/ext Details venkatesh and unil Body Position Standing Water Level Chest Level Comments emphasis on core stab [place] Activities [place] Activities Bicycle Cross [place] Running Equipment noodle in front Duration 10 PT-OP-T Assessment and Plan Start: 06/29/18 14:31 Freq: Status: Active Protocol: Document 09/22/18 11:45 [facility] (Rec: 09/23/18 16:24 SAK [id number]) Physical Therapy Assessment Goals Five Impairment knowledge deficit Snf Goal (LTG) Patient will be independent in aquatic exercise program for long-term fitness and pain managment Four Impairment ROM Short Term Goal (STG) Improve PSLR to 70 venkatesh STG Duration 1 month [place] Goal (LTG) Improve PSLR to 80 venkatesh LTG Duration 2 months Three Impairment posture Short Term Goal (STG) Patient to demonstrate good understanding of neutral posture and be able to self correct with minimal cues STG Duration 1 month Snf Goal (LTG) Patient able to verbalize and demonstrate neutral postural alignment without cues for purposes of back protection and healing. LTG Duration 2 months Two Impairment pain Short Term Goal (STG) Decrease pain to no greater than 3/10 STG Duration 1 month [place] Goal (LTG) Decrease pain to no greater than 1/10 with all usual activities LTG Duration 2 months One Impairment activity tolerance Short Term Goal (STG) Improve Oswestry disability index score to no greater than 20% STG Duration 1 month [place] Goal (LTG) Improve Oswestry disability index score to no greater than 10% LTG Duration 2 months Assessment Summary Assessment Progressing well, able to tolerate resistance fins on ankles today with shallow water ex. Improving postura awareness. Physical Therapy Plan Frequency and Duration Frequency of Treatment 2x/Week Duration of Treatment 2 months Plan of Care Start Date 06/29/18 Plan of Care End Date 09/29/18 Next Visit Focus/Plan Next Note Type Treatment Note Next Visit Plan Continue progression of aquatic PT. Add deep water DLS ex.
--- NOTE | 2018-09-29 15:25 | PT.OTN ---
Current Diagnoses Low back pain (09/29/18) Physical Therapy Treatment Note PT-OP-A Visit Information Start: 06/29/18 14:31 Freq: Status: Active Protocol: Document 09/29/18 11:45 LJ (Rec: 09/29/18 15:25 LJ [id number]) Out-Patient Physical Therapy Visit Information Visit Information Visit Type Aquatic Treatment Note Visit Start Time 11:45 Visit Stop Time 12:30 Total Visit Minutes 45 Visit Number 7 Number of HEALTH ACTUARY Visits 1 PT-OP-B Current Condition Start: 06/29/18 14:31 Freq: Status: Active Protocol: Document 06/29/18 14:32 SAK (Rec: 06/29/18 15:16 SAK [id number]) Current Condition History of Current Condition Onset Date 02/04/18. Current Complaints Function-limiting LBP History of Current Condition Fell onto back backwards while moving furniture. Pain initially severe, getting better but has had aquatic therapy recommended. No back pain prior to this injury. Prior BLADE venkatesh, right 10/25 anterior, left 2007 posterior approach. Prior Treatments and Tests No x-ray. Future Testing and Treatments Planned PT at [facility]. Has HEP, bridging painful, otherwise good spenser for LTR, SLR, prone leg lift, elliptical, DKTC, hamstring stretch, rowing, shoulder rows. Treatment Goals Patient/Caregiver Goals Eliminate LBP. Prior Functional Status Baseline Function- ADL's Independent Baseline Function- Mobility Independent Baseline Function- Gait Independent, no device Baseline Function- Work/School retired, indep with housework and yardwork Current Functional Impairments (Reported) Functional Limitations- ADL's painful Functional Limitations- Mobility/Gait painful Functional Limitations- Work/School housework and yardwork painful Personal Factors Other Personal Factors That May Effect age; 77 Therapy/Recovery PT-OP-C Subjective Start: 06/29/18 14:31 Freq: Status: Active Protocol: Document 09/29/18 11:45 LJ (Rec: 09/29/18 15:25 LJ [id number]) OP-PT Subjective Patient Comments Patient Comments Pt states aquatic therapy is helping her strengthen her core muscles and makes her back feel better PT-OP-F Manual Assessment Start: 06/29/18 14:31 Freq: Status: Active Protocol: Document 06/29/18 14:32 SAK (Rec: 07/02/18 16:54 SAK [id number]) Manual Assessments Soft Tissue Assessment Soft Tissue Mobility Assessment Decreased soft tissue mobility bilateral lumbar paraspinals Joint Mobility Assessment Joint Mobility Assessment Hypomobile PA's lumbar spine PT-OP-G Mobility & Gait Start: 06/29/18 14:31 Freq: Status: Active Protocol: Document 06/29/18 14:32 SAK (Rec: 07/02/18 16:54 SAK [id number]) OP Mobility Evaluation Transfers Sit to Stand painful Functional Movements Lifting and Carrying painful Squats painful OP Gait Assessment Gait Deviations General Gait Pattern Decreased Stride Length Decreased Feet Clearance PT-OP-J Posture/Palpation/Skin Start: 06/29/18 14:31 Freq: Status: Active Protocol: Document 06/29/18 14:32 SAK (Rec: 07/02/18 16:54 SAK [id number]) Posture Evaluation Position Standing T-Spine Posture Increased Kyphosis L-Spine Posture Increased Lordosis Hip Posture (L) Externally Rotated (R) Externally Rotated Palpation Assessment Location lumbar spine Palpation Findings Soft Tissue Tightness Tenderness PT-OP-K Range of Motion Start: 06/29/18 14:31 Freq: Status: Active Protocol: Document 06/29/18 14:32 SAK (Rec: 07/02/18 16:54 [facility] [id number]) Hip Goniometric Range of Motion Hip Measured in Degrees Right Straight Leg Raise 55 Left Hip ROM WFL No Straight Leg Raise 60 Hip ROM Limitations Hip ROM Limitations Soft Tissue Tightness PT-OP-L Special Tests Start: 06/29/18 14:31 Freq: Status: Active Protocol: Document 06/29/18 14:32 SAK (Rec: 07/02/18 16:54 [facility] [id number]) Special Tests Hip Special Tests SKYE Test Results negative Xavier Test Results positive muscle tightness Scour Test Test Results negative PT-OP-M Strength Start: 06/29/18 14:31 Freq: Status: Active Protocol: Document 06/29/18 14:32 SAK (Rec: 07/02/18 16:54 SAK [id number]) Trunk Strength Trunk Manual Muscle Testing Testing Position Supine Core Stabilization Poor awareness and ability to activate transverse abdominis and multifidi Hip Strength Hip Manual Muscle Testing Left Flexion (L2) 4 Good Extension (S1) 4- Good- Abduction 4- Good- External Rotation 4- Good- Internal Rotation 4 Good Right Flexion (L2) 4 Good Extension (S1) 4- Good- Abduction 4- Good- External Rotation 4- Good- Internal Rotation 4 Good Knee Strength Knee Manual Muscle Testing Left Flexion (S2) 4 Good Extension (L3) 4+ Good+ Right Flexion (S2) 4 Good Extension (L3) 4+ Good+ Ankle/Foot Strength Ankle and Foot Manual Muscle Testing Left Dorsiflexion (L4) 4+ Good+ Plantarflexion (S1) 4+ Good+ Right Dorsiflexion (L4) 4+ Good+ Plantarflexion (S1) 4+ Good+ PT-OP-Q Treatments Start: 06/29/18 14:31 Freq: Status: Active Protocol: Document 06/29/18 14:32 SAK (Rec: 07/02/18 16:54 SAK [id number]) Self-Care/Home Management Treatment Education Patient Education Body Mechanics Posture Other Education core stabilization with all movements and in all positions for back protection, neutral postural alignment using wall as reference; postural isometric PT-OP-R Modalities Start: 06/29/18 14:31 Freq: Status: Active Protocol: Document 06/29/18 14:32 SAK (Rec: 07/02/18 16:54 SAK [id number]) Hot Pack/Cold Pack Treatment Cold Pack Patient Position Hooklying Treatment Duration (minutes) 10 PT-OP-S Aquatic Treatment Start: 06/29/18 14:31 Freq: Status: Active Protocol: Document 09/29/18 11:45 LJ (Rec: 09/29/18 15:25 LJ [id number]) Aquatics Treatment Pool Entry/Exit Pool Entry/Exit Method Stairs Assistance Independent Water Walking fwd, bck, november Water Level Chest Level Walking Equipment small resistance fins Level of Assistance Contact Guard Assistance Comments verbal and tactile cues for core stab and posture Lower Extremity Exercises mountain climbers Body Position Standing Water Level Chest Level Reps/Duration 30 sec x2 Comments slow w/o impact hip flex/ext, ab/ad, circles Body Position Standing Water Level Chest Level Equipment small resistance fins Reps/Duration 10 Comments emphasis on core stab. w/ perturbations Lower Extremity Stretches hamstrings and soleus Details at wall DKTC, SKTC Body Position Standing Water Level Lawrence Comments at wall hamstrings, hip add, IT band Body Position Standing Water Level Chest Level Reps/Duration 2x Comments small noodle Upper Extremity Exercises shoulder hor ab/ad, flex/ext Details venkatesh and unil Body Position Standing Water Level Chest Level Comments emphasis on core stab Spinal Exercises side to side rotation w/paddle Water Level Chest Level Equipment UE paddles Comments squat position, multiple cues for form rhythmic stabilization Body Position Standing Water Level Chest Level Comments manual resist at hips, shoulders, ant/post Lawrence Activities Lawrence Activities Bicycle Equipment noodle in front Duration 15 PT-OP-T Assessment and Plan Start: 06/29/18 14:31 Freq: Status: Active Protocol: Document 09/29/18 11:45 ORION (Rec: 09/29/18 15:25 LJ [id number]) Physical Therapy Assessment Goals Five Impairment knowledge deficit Jail Goal (LTG) Patient will be independent in aquatic exercise program for long-term fitness and pain managment Four Impairment ROM Short Term Goal (STG) Improve PSLR to 70 venkatesh STG Duration 1 month Windows Consultant Goal (LTG) Improve PSLR to 80 venkatesh LTG Duration 2 months Three Impairment posture Short Term Goal (STG) Patient to demonstrate good understanding of neutral posture and be able to self correct with minimal cues STG Duration 1 month Windows Consultant Goal (LTG) Patient able to verbalize and demonstrate neutral postural alignment without cues for purposes of back protection and healing. LTG Duration 2 months Two Impairment pain Short Term Goal (STG) Decrease pain to no greater than 3/10 STG Duration 1 month Jail Goal (LTG) Decrease pain to no greater than 1/10 with all usual activities LTG Duration 2 months One Impairment activity tolerance Short Term Goal (STG) Improve Oswestry disability index score to no greater than 20% STG Duration 1 month Windows Consultant Goal (LTG) Improve Oswestry disability index score to no greater than 10% LTG Duration 2 months Assessment Summary Assessment Pt talking about core muscles and which ones she was using with different exercises. Demonstrates knowledge of what to do however pt lacks coordination and requires multiple cues for using upper body and lower body at the same time in more advanced exercises. Physical Therapy Plan Frequency and Duration Frequency of Treatment 2x/Week Duration of Treatment 2 months Plan of Care Start Date 06/29/18 Plan of Care End Date 09/29/18 Therapeutic Interventions Therapeutic Interventions Aquatic Therapy Self-Care/Home Management Modalities Cold Pack/Ice Massage Discharge Physical Therapy Discharge Reasons Patient Request Discharge Comments see above Next Visit Focus/Plan Next Note Type Treatment Note Next Visit Plan Provide pt with aquatic HEP. Pt will attend one more session then discharge.
--- NOTE | 2018-12-29 14:01 | PT.OPDS ---
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 Current Complaints Function-limiting LBP History of Current Condition Fell onto back backwards while moving furniture. Pain initially severe, getting better but has had aquatic therapy recommended. No back pain prior to this injury. Prior BLADE venkatesh, right 10/25 anterior, left 2007 posterior approach. Prior Treatments and Tests No x-ray. Future Testing and Treatments Planned PT at [facility]. Has HEP, bridging painful, otherwise good spenser for LTR, SLR, prone leg lift, elliptical, DKTC, hamstring stretch, rowing, shoulder rows. Treatment Goals Patient/Caregiver Goals Eliminate LBP. Prior Functional Status Baseline Function- ADL's Independent Baseline Function- Mobility Independent Baseline Function- Gait Independent, no device Baseline Function- Work/School retired, indep with housework and yardwork Current Functional Impairments (Reported) Functional Limitations- ADL's painful Functional Limitations- Mobility/Gait painful Functional Limitations- Work/School housework and yardwork painful Personal Factors Other Personal Factors That May Effect age; 77 Therapy/Recovery PT-OP-C Subjective Start: 06/29/18 14:31 Freq: Status: Active Protocol: Document 09/29/18 11:45 LJ (Rec: 09/29/18 15:25 LJ [email or web address]) OP-PT Subjective Patient Comments Patient Comments Pt states aquatic therapy is helping her strengthen her core muscles and makes her back feel better PT-OP-F Manual Assessment Start: 06/29/18 14:31 Freq: Status: Active Protocol: Document 06/29/18 14:32 SAK (Rec: 07/02/18 16:54 SAK [id number]) Manual Assessments Soft Tissue Assessment Soft Tissue Mobility Assessment Decreased soft tissue mobility bilateral lumbar paraspinals Joint Mobility Assessment Joint Mobility Assessment Hypomobile PA's lumbar spine PT-OP-G Mobility & Gait Start: 06/29/18 14:31 Freq: Status: Active Protocol: Document 06/29/18 14:32 SAK (Rec: 07/02/18 16:54 SAK [id number]) OP Mobility Evaluation Transfers Sit to Stand painful Functional Movements Lifting and Carrying painful Squats painful OP Gait Assessment Gait Deviations General Gait Pattern Decreased Stride Length Decreased Feet Clearance PT-OP-J Posture/Palpation/Skin Start: 06/29/18 14:31 Freq: Status: Active Protocol: Document 06/29/18 14:32 SAK (Rec: 07/02/18 16:54 SAK [id number]) Posture Evaluation Position Standing T-Spine Posture Increased Kyphosis L-Spine Posture Increased Lordosis Hip Posture (L) Externally Rotated (R) Externally Rotated Palpation Assessment Location lumbar spine Palpation Findings Soft Tissue Tightness Tenderness PT-OP-K Range of Motion Start: 06/29/18 14:31 Freq: Status: Active Protocol: Document 06/29/18 14:32 SAK (Rec: 07/02/18 16:54 SAK [id number]) Hip Goniometric Range of Motion Hip Measured in Degrees Right Straight Leg Raise 55 Left Hip ROM WFL No Straight Leg Raise 60 Hip ROM Limitations Hip ROM Limitations Soft Tissue Tightness PT-OP-L Special Tests Start: 06/29/18 14:31 Freq: Status: Active Protocol: Document 06/29/18 14:32 SAK (Rec: 07/02/18 16:54 SAK [id number]) Special Tests Hip Special Tests SKYE Test Results negative Xavier Test Results positive muscle tightness Scour Test Test Results negative PT-OP-M Strength Start: 06/29/18 14:31 Freq: Status: Active Protocol: Document 06/29/18 14:32 SAK (Rec: 07/02/18 16:54 SAK [id number]) Trunk Strength Trunk Manual Muscle Testing Testing Position Supine Core Stabilization Poor awareness and ability to activate transverse abdominis and multifidi Hip Strength Hip Manual Muscle Testing Left Flexion (L2) 4 Good Extension (S1) 4- Good- Abduction 4- Good- External Rotation 4- Good- Internal Rotation 4 Good Right Flexion (L2) 4 Good Extension (S1) 4- Good- Abduction 4- Good- External Rotation 4- Good- Internal Rotation 4 Good Knee Strength Knee Manual Muscle Testing Left Flexion (S2) 4 Good Extension (L3) 4+ Good+ Right Flexion (S2) 4 Good Extension (L3) 4+ Good+ Ankle/Foot Strength Ankle and Foot Manual Muscle Testing Left Dorsiflexion (L4) 4+ Good+ Plantarflexion (S1) 4+ Good+ Right Dorsiflexion (L4) 4+ Good+ Plantarflexion (S1) 4+ Good+ PT-OP-T Assessment and Plan Start: 06/29/18 14:31 Freq: Status: Active Protocol: Document 12/29/18 14:00 GLORIA (Rec: 12/29/18 14:01 GLORIA [id number]) Physical Therapy Plan Discharge Physical Therapy Discharge Reasons Goals Met
== END 2018-12-29 15:31 | disposition home or self-care (01) ==
LOC: PHYS 11:45
PROVIDERS: Family Provider Physician Assistant; PCP Physician Assistant; Visit Provider Student in an Organized Health Care Education/Training Program
DX: M54.5 Low back pain (principal)
CPT/HCPCS: 97113; 97162; 97535

== ENCOUNTER → 2018-10-28 16:23 | Outpatient (CLI) | payer MEDICARE, SELFPAY ==
--- NOTE | 2018-10-28 | DI.RAD.S_ITS ---
PROCEDURE: XR FOOT LT MIN 3V INDICATIONS: SWELLING, REDNESS, PAIN LEFT HEEL TECHNIQUE: 3 views of the foot were acquired. COMPARISON: None. FINDINGS: Bones: No fractures or dislocations. No suspicious bony lesions. Severe bunion. There is moderate first metatarsophalangeal joint degeneration. Soft tissues: No tibiotalar joint effusion. Achilles tendon appears normal. IMPRESSION: 1. No fracture or dislocation. 2. Severe bunion and moderate first metatarsophalangeal joint degeneration. Dictated by: Fartun Mckeon M.D. on 10/28/2018 at 17:01 Approved by: Fartun Mckeon M.D. on 10/28/2018 at 17:03
== END ==
PROVIDERS: PCP Physician Assistant; Visit Provider Physician Assistant
DX: M79.672 Pain in left foot (principal); M21.612 Bunion of left foot; M19.072 Primary osteoarthritis, left ankle and foot
CPT/HCPCS: 73630

== ENCOUNTER → 2018-11-29 15:36 | Outpatient (CLI) | payer MEDICARE, SELFPAY | PROVIDERS: Family Provider Physician Assistant; PCP Physician Assistant; Visit Provider Internal Medicine Hematology & Oncology | DX: D47.3 Essential (hemorrhagic) thrombocythemia (principal) | CPT/HCPCS: 80053; 82728; 83540; 83550; 83615; 84550; 85025 ==

== ENCOUNTER → 2018-12-23 09:49 | Outpatient (CLI) | payer MEDICARE, SELFPAY ==
--- NOTE | 2018-12-23 09:52 | DI.US.S_ITS ---
PROCEDURE: US ABDOMEN COMPLETE INDICATIONS: ESSENTIAL THROMBOCYTHEMIA (HEMORRHAGIC) TECHNIQUE: Real-time scanning was performed of the abdominal and retroperitoneal organs, with image documentation. COMPARISON: None. FINDINGS: Liver: Liver is normal in size and homogeneous in echotexture. Gallbladder: No findings of gallstones or sludge are seen. The gallbladder wall is not thickened, measuring 3 mm or less. A prominent fold can be seen along the gallbladder neck. No specific pericholecystic fluid is seen. The sonographic Reed sign is negative. Biliary ducts: Intrahepatic bile ducts are non-dilated. Extrahepatic bile duct caliber measures 6 mm. Normal is 6-7 mm or less in diameter, or 10 mm or less post-cholecystectomy. Pancreas: Visualized portions of the pancreas are sonographically normal. Spleen: Spleen is normal in size and homogeneous in echotexture. Kidneys: Kidneys are normal in size and echotexture. Right kidney measures 9.9 cm long; left kidney measures 10 cm long. No hydronephrosis or nephrolithiasis. No solid masses. Multiple right renal cysts are seen, with the largest measuring up to 2.5 along the superior to mid region. Prominent left renal pyramids can also be seen. Aorta: Visualized aorta is normal in caliber at less than 3 cm. Iliacs: Proximal common iliac arteries are normal in caliber at less than 2.5 cm. IVC: Intrahepatic inferior vena cava is patent. Miscellaneous: No free abdominal fluid. IMPRESSION: The liver and spleen demonstrate normal size. Prominent right renal cysts are incidentally noted. Prominent left renal pyramids are also incidentally noted. Dictated by: Maxime Díaz M.D. on 12/23/2018 at 11:02 Approved by: Maxime Díaz M.D. on 12/23/2018 at 11:04
== END ==
PROVIDERS: PCP Physician Assistant; Visit Provider Internal Medicine Hematology & Oncology
DX: D47.3 Essential (hemorrhagic) thrombocythemia (principal); N28.1 Cyst of kidney, acquired
CPT/HCPCS: 76700

== ENCOUNTER → 2019-02-01 10:56 | Outpatient (CLI) | payer MEDICARE, SELFPAY ==
[2019-02-01 11:27] LABS: Add Manual Diff / Slide Review NO; Basophils Absolute Auto 100 /uL (0-100); Basophils Percent Auto 1.1 % (0-2); Eosinophils Absolute Auto 100 /uL (0-450); Hematocrit 37.5 % (36-46); Hemoglobin 12.9 g/dL (12.0-16.0); Lymphocytes Absolute Auto 800 /uL (1100-4500); Lymphocytes Percent Auto 12.1 % (25-40); Mean Corpuscular HGB Conc 34.5 % (30-36); Mean Corpuscular Hemoglobin 31.8 PG (26-34); Mean Corpuscular Volume 92.3 fL (80-100); Monocytes Absolute Auto 500 /uL (0-900); Monocytes Percent Auto 7.7 % (3-14); Neutrophils Absolute Auto 5000 /uL (1500-7000); Neutrophils Percent Auto 77.1 % (50-75); Platelet Count 542 X10^3/uL (150-400); Red Blood Cell Count 4.06 X10^6/uL (4.0-5.2); Red Cell Distribution Width 15.6 % (11.6-14.8); White Blood Cell Count 6.5 X10^3/uL (4.5-11.0)
[2019-02-01 12:04] LABS: Alanine Aminotransferase 33 IU/L (9-52); Albumin 4.3 g/dL (3.5-5.0); Albumin Globulin Ratio 1.5 (1.0-2.8); Alkaline Phosphatase 56 U/L (38-126); Aspartate Aminotransferase 32 IU/L (14-36); BUN Creatinine Ratio 25.7 (6-22); Bilirubin Total 0.6 mg/dL (0.2-1.3); Blood Urea Nitrogen 18 mg/dL (7-17); Calcium 9.7 mg/dL (8.4-10.2); Carbon Dioxide 29 mmol/L (22-32); Chloride 100 mmol/L (98-107); Estimated Glomerular Filt Rate > 60.0 mL/min (>60); Globulin 2.8 g/dL (1.7-4.1); Glucose 88 mg/dL (80-110); HEMOLYSIS < 15 (0-50); Sodium 135 mmol/L (137-145); Total Protein 7.1 g/dL (6.3-8.2)
[2019-02-01 12:05] LABS: Potassium 5.5 mmol/L (3.4-5.1)
== END ==
PROVIDERS: Family Provider Physician Assistant; PCP Physician Assistant; Visit Provider Internal Medicine Hematology & Oncology
DX: D47.3 Essential (hemorrhagic) thrombocythemia (principal)
CPT/HCPCS: 36415; 80053; 85025

== ENCOUNTER → 2019-03-03 11:24 | Outpatient (CLI) | payer MEDICARE, SELFPAY ==
--- NOTE | 2019-03-03 | DI.RAD.S_ITS ---
PROCEDURE: XR LUMBAR SPINE 2-3V INDICATIONS: LOW BACK PAIN, FELL. TECHNIQUE: 3 views of the lumbar spine were acquired. COMPARISON: None. FINDINGS: Bones: 5 [id number] vertebrae are present. There is mild levo scoliosis; otherwise normal bony alignment. There is moderate to severe vertebral body compression fracture with anterior wedge deformity. No suspicious bony lesions. Degenerative disc disease is present, moderate to severe at L2-L3 and L4-L5, mild at L3-L4 and L5-S1. There is moderate to severe facet arthropathy at L4-L5 and L5-S1. Bilateral hip arthroplasty. Soft tissues: Overlying bowel gas pattern is normal. No suspicious soft tissue calcifications. IMPRESSION: 1. Moderate to severe compression fracture of L1 of uncertain chronicity. MRI may be helpful for further evaluation. 2. Multilevel degenerative disc and facet disease. Dictated by: Fartun Mckeon M.D. on 03/03/2019 at 16:40 Approved by: Fartun Mckeon M.D. on 03/03/2019 at 16:44
== END ==
PROVIDERS: PCP Physician Assistant; Visit Provider Chiropractor
DX: M54.5 Low back pain (principal); S32.019A Unspecified fracture of first lumbar vertebra, initial encounter for closed fracture; M51.36 Other intervertebral disc degeneration, lumbar region; M51.37 Other intervertebral disc degeneration, lumbosacral region; M47.816 Spondylosis without myelopathy or radiculopathy, lumbar region; M47.817 Spondylosis without myelopathy or radiculopathy, lumbosacral region; Z96.643 Presence of artificial hip joint, bilateral; W19.XXXA Unspecified fall, initial encounter
CPT/HCPCS: 72100

== ENCOUNTER → 2019-03-07 14:23 | Outpatient (CLI) | payer MEDICARE, SELFPAY | PROVIDERS: PCP Physician Assistant; Visit Provider Internal Medicine | DX: R30.0 Dysuria (principal) | CPT/HCPCS: 87086 ==

== ENCOUNTER → 2019-03-21 11:50 | Outpatient (CLI) | payer MEDICARE, SELFPAY ==
[2019-03-21 12:52] LABS: Add Manual Diff / Slide Review NO; Basophils Absolute Auto 0 /uL (0-100); Basophils Percent Auto 0.7 % (0-2); Eosinophils Absolute Auto 100 /uL (0-450); Eosinophils Percent Auto 1.3 % (2-4); Hematocrit 36.1 % (36-46); Hemoglobin 12.2 g/dL (12.0-16.0); Lymphocytes Absolute Auto 800 /uL (1100-4500); Lymphocytes Percent Auto 17.4 % (25-40); Mean Corpuscular HGB Conc 33.9 % (30-36); Mean Corpuscular Hemoglobin 34.1 PG (26-34); Mean Corpuscular Volume 100.5 fL (80-100); Monocytes Absolute Auto 400 /uL (0-900); Monocytes Percent Auto 7.6 % (3-14); Neutrophils Absolute Auto 3500 /uL (1500-7000); Platelet Count 285 X10^3/uL (150-400); Red Blood Cell Count 3.59 X10^6/uL (4.0-5.2); Red Cell Distribution Width 21.3 % (11.6-14.8); White Blood Cell Count 4.8 X10^3/uL (4.5-11.0)
[2019-03-21 13:28] LABS: Lactate Dehydrogenase 529 U/L (313-618)
[2019-03-21 13:36] LABS: Alanine Aminotransferase 24 IU/L (9-52); Albumin Globulin Ratio 1.4 (1.0-2.8); Alkaline Phosphatase 64 U/L (38-126); Aspartate Aminotransferase 29 IU/L (14-36); Bilirubin Total 0.5 mg/dL (0.2-1.3); Blood Urea Nitrogen 21 mg/dL (7-17); Calcium 9.5 mg/dL (8.4-10.2); Carbon Dioxide 27 mmol/L (22-32); Chloride 102 mmol/L (98-107); Cholesterol 219 mg/dL (140-199); Estimated Glomerular Filt Rate > 60.0 mL/min (>60); Globulin 2.9 g/dL (1.7-4.1); Glucose 89 mg/dL (80-110); HDL Cholesterol 60 mg/dL (40-60); HEMOLYSIS < 15 (0-50); LDL Cholesterol Calculated 142 mg/dL (<100); Potassium 4.7 mmol/L (3.4-5.1); Sodium 138 mmol/L (137-145); Total Protein 6.9 g/dL (6.3-8.2); Triglycerides 84 mg/dL (35-150)
[2019-03-21 13:38] LABS: Anisocytosis 1+
[2019-03-21 13:39] LABS: Macrocytosis 1+
== END ==
PROVIDERS: PCP Physician Assistant; Visit Provider Internal Medicine Hematology & Oncology
DX: D47.3 Essential (hemorrhagic) thrombocythemia (principal)
CPT/HCPCS: 36415; 80053; 80061; 83615; 85025

== ENCOUNTER → 2019-08-16 13:06 | Outpatient (ROUT) | payer MEDICARE, SELFPAY | PROVIDERS: Family Provider Physician Assistant; PCP Physician Assistant; Visit Provider Physician Assistant | DX: R39.9 Unspecified symptoms and signs involving the genitourinary system (principal) | CPT/HCPCS: 87086 ==

== ENCOUNTER 2019-08-24 19:29 | Emergency (ER) | payer MEDICARE, SELFPAY ==
[2019-08-24 19:42] VITALS: BP 192/88; PULSE 69; RESP 18; TEMP 36.8; O2SAT 96; BMI 23.9
--- NOTE | 2019-08-24 19:43 | DI.RAD.S_ITS ---
PROCEDURE: XR CHEST 1V INDICATIONS: hypertension TECHNIQUE: One view of the chest was acquired. COMPARISON: None. FINDINGS: Surgical changes and devices: None. Lungs and pleura: Lungs are edematous. No pleural effusions or pneumothorax. Mediastinum: Mediastinal contours appear normal. Heart size is at the upper limits of normal. Bones and chest wall: No suspicious bony lesions. Overlying soft tissues appear unremarkable. IMPRESSION: Generalized pulmonary edema pattern, suspect cardiogenic origin (acute). Dictated by: Michael Viera M.D. on 08/24/2019 at 20:07 Approved by: Michael Viera M.D. on 08/24/2019 at 20:07
--- NOTE | 2019-08-24 19:44 | DI.CT.S_ITS ---
PROCEDURE: CT HEAD/BRAIN WO CON INDICATIONS: Htn with headache and hx of cva TECHNIQUE: Noncontrast 4.5 mm thick angled axial sections acquired from the foramen magnum to the vertex, with coronal and sagittal reformats. For radiation dose reduction, the following was used: automated exposure control, adjustment of mA and/or kV according to patient size. COMPARISON: None. FINDINGS: Image quality: Excellent. CSF spaces: Basal cisterns are patent. No extra-axial fluid collections. Ventricles are normal in size and shape. Brain: No midline shift. No intracranial masses or hemorrhage. Orozco-white matter interface is normal. Skull and face: Calvarium and visualized facial bones are intact, without suspicious lesions. Sinuses: Visualized sinuses and mastoids are clear. IMPRESSION: Moderate microvascular atherosclerotic change in the deep white matter of each hemisphere, without evidence of intracranial hemorrhage. No sign of stroke or mass. Dictated by: Michael Viera M.D. on 08/24/2019 at 20:07 Approved by: Michael Viera M.D. on 08/24/2019 at 20:08
[2019-08-24] MEDS: SODIUM CHLORIDE 0.9% 1,000 ML 150 ML IV (19:50)
--- NOTE | 2019-08-24 19:56 | ED_ITS ---
HPI - General Adult General Chief complaint: Hypertension Stated complaint: Elevated BP Time Seen by Provider: 08/24/19 19:36 Source: patient Mode of arrival: EMS Limitations: no limitations History of Present Illness HPI narrative: Patient is a 78-year-old female with history of hypertension and previous CVA presenting with elevated blood pressure and mild headaches ongoing for the last few days. She has a low-grade headache earlier today she took her blood pressure noted it was quite elevated is the systolic no 190s. She denies any numbness tingling or weakness she has no chest pain shortness of breath patricia sea vomiting or abdominal pain. She still doesn't feel quite right but she has no headache at this time. Dr. Pantoja for essential thrombocytosis. She was seen evaluated him on 08/22/2019 complaining of some light dizziness flashes of light headache and elevated blood pressure along with anxiety possibly due to Hydrea verses other medical issue. She was taken off Hydrea for a month to see if her symptoms in improved. Her symptoms remain on change 2 days later. Related Data Home Medications Medication Instructions Recorded Confirmed aspirin 81 mg PO DAILY 11/22/18 08/22/19 carvedilol 25 mg PO BID 11/22/18 08/22/19 losartan 50 mg PO BID 11/22/18 08/22/19 simvastatin 10 mg PO QPM 04/25/19 08/22/19 Previous Rx's Medication Instructions Recorded hydroxyurea [Hydrea] 500 mg PO DAILY #30 cap 01/10/19 Allergies Allergy/AdvReac Type Severity Reaction Status Date / Time No Known Drug Allergies Allergy Verified 08/24/19 19:42 Review of Systems Review of Systems Narrative: GENERAL: Denies chills, fatigue, malaise, fever, sweats, travel HEENT: Denies sinus pain, ear pain, sore throat, difficulty swallowing, neck pain RESPIRATORY: Denies dyspnea, cough, wheezing, hemoptysis, sputum. CARDIOVASCULAR: Denies chest pain, palpitations, orthopnea, edema GASTROINTESTINAL: Denies nausea, vomiting, abdominal pain, diarrhea, constipation, melena. : Denies dysuria, frequency, incontinence, hematuria, urinary retention, flank pain. MUSCULOSKELETAL: Denies weakness, joint pain, or bony pain SKIN: No rash, no erythema, no pruritus NEUROLOGIC: Mild headache see HPI PSYCHIATRIC: No concerning psychosocial issues. 12 point review of systems is negative except for those stated above and HPI Patient History Medical History Anxiety and depression (Acute) Bilateral cataracts (Acute) Essential (primary) hypertension (Acute) Essential thrombocytosis (Acute) H/O Mohs micrographic surgery for skin cancer (Acute) Hyperlipidemia (Acute) Osteopenia (Acute) Surgical History History of total right hip replacement (Acute) S/P dilation and curettage (Acute) Status post Mohs surgery (Acute) Status post total hip replacement, left (Acute) Family History Mother Bipolar depression Father Pneumonia Social History Smoking Status: Never smoker alcohol intake: current (wine) substance use type: does not use Smoking Status: Never smoker Substance Use Type: does not use Exam Initial Vital Signs Initial Vital Signs: Vital Signs Temperature 98.2 F 08/24/19 19:42 Pulse Rate 69 08/24/19 19:42 Respiratory Rate 18 08/24/19 19:42 Blood Pressure 192/88 H 08/24/19 19:42 Pulse Oximetry 96 08/24/19 19:42 GENERAL: Well-appearing, well-nourished and in no acute distress. HEENT: Head atraumatic,EOMI, pupils reactive, face symmetric, moist mucous membranes CARDIOVASCULAR: Regular rate and rhythm without murmurs, rubs or gallops. RESPIRATORY: Breath sounds equal bilaterally, no wheezes rales or rhonchi. ABDOMEN: Soft, nontender. Normoactive bowel sounds all 4 quadrants. No guarding or rebound. EXTREMITIES: Normal range of motion, no clubbing or edema. Neurovascularly intact NEUROLOGICAL: Alert and oriented x4.Normal gait and speech. Cranial nerves II through XII grossly intact. 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 Scores NIH Stroke Scale Level of Conciousness: Alert, keenly responsive Ask month/age: Answers both questions correctly. Open/close eyes, close hand: Performs both tasks correctly Best gaze horizontal: Normal Visual james: No visual loss Facial palsy: Normal symetrical movement Left arm drift: No drift for full 10 sec Right arm drift: No drift for full 10 sec Left leg drift: No drift for full 10 sec Right leg drift: No drift for full 10 sec Limb ataxia: Absent Sensory on face/arms/legs: Normal, no sensory loss Best language: No aphasia, normal Dysarthria: Normal Extinction or inattention: No abnormality Total NIH Stroke scale score: 0 Course Orders Ordered: ED Orders 08/24/19 19:15 Complete Blood Count AUTO DIFF Stat Comprehensive Metabolic Panel Stat Lipase Stat Troponin & CK Cardiac Panel Stat 08/24/19 19:43 XR chest 1V Stat 08/24/19 19:44 CT head/brain wo con Stat 08/24/19 19:45 Urine Microscopic Stat 08/24/19 19:46 EKG-12 Lead Stat Discontinued Medications Sodium Chloride (Normal Saline 0.9%) 1,000 mls @ 150 mls/hr IV CONT LIZETH Last Infusion: 08/24/19 21:01 Dose: 0 mls/hr Documented by: Admin: 08/24/19 19:50 Dose: 150 mls/hr Documented by: RL Vital Signs Vital signs: Vital Signs - 8 hr 08/24/19 19:42 08/24/19 20:37 08/24/19 21:01 Temperature 98.2 F Pulse Rate 69 67 68 Respiratory Rate 18 19 16 Blood Pressure 192/88 H Blood Pressure [Left Arm] 170/88 H 160/96 H Pulse Oximetry 96 95 94 Medical Decision Making Lab Data Lab results reviewed: Yes I reviewed the patient's lab results. Result diagrams: 08/24/19 19:15 08/24/19 19:15 Labs: Lab Results 08/24/19 08/24/19 08/24/19 Range/Units 19:15 19:15 19:45 WBC 5.2 (4.5-11.0) X10^3/uL RBC 3.45 L (4.0-5.2) X10^6/uL Hgb 13.6 (12.0-16.0) g/dL Hct 39.1 (36-46) % MCV 113.2 H (80-100) fL MCH 39.4 H (26-34) PG MCHC 34.8 (30-36) % RDW 12.8 (11.6-14.8) % Plt Count 247 (150-400) X10^3/uL Neut % (Auto) 58.8 (50-75) % Lymph % (Auto) 27.1 (25-40) % [place] % (Auto) 11.7 (3-14) % Eos % (Auto) 1.5 L (2-4) % Baso % (Auto) 0.9 (0-2) % Neut # (Auto) 3100 (5807-4499) /uL Lymph # (Auto) 1400 (8707-5799) /uL [place] # (Auto) 600 (0-900) /uL Eos # (Auto) 100 (0-450) /uL Baso # (Auto) 0 (0-100) /uL RBC Morphology See below Macrocytosis 2+ H Sodium 134 L (137-145) mmol/L Potassium 3.5 (3.4-5.1) mmol/L Chloride 94 L (98-107) mmol/L Carbon Dioxide 29 (22-32) mmol/L BUN 21 H (7-17) mg/dL Creatinine 0.70 (0.52-1.04) mg/dL Estimated GFR > 60.0 (>60) mL/min BUN/Creatinine Ratio 30.0 H (6-22) Glucose 102 (80-110) mg/dL Calcium 9.5 (8.4-10.2) mg/dL Total Bilirubin 0.6 (0.2-1.3) mg/dL AST 40 H (14-36) IU/L ALT 23 (<35) IU/L Alkaline Phosphatase 71 (38-126) U/L Total Creatine Kinase 109 (30-135) U/L CK-MB (CK-2) 1.76 (<2.37) ng/mL CK-MB (CK-2) Rel Index 1.6 (1.5-5.0) % Troponin I < 0.012 (0.01-0.034) ng/mL Total Protein 8.1 (6.3-8.2) g/dL Albumin 4.7 (3.5-5.0) g/dL Globulin 3.4 (1.7-4.1) g/dL Albumin/Globulin Ratio 1.4 (1.0-2.8) Lipase 151 (23-300) U/L Urine RBC 0-1/hpf (0-5/HPF) Urine WBC 0-1/hpf (0-5/HPF) Ur Squamous Epith Cells 0-1 /hpf (0-5/HPF) Urine Bacteria None seen (None) Ur Culture Indicated? Cult not indicated Micro UA Comment Microscopic normal Urine Dip Bedside Urine Glucose Negative Bedside Urine Bilirubin - Negative Bedside Urine Ketone - Negative Urine Specific [place] 1.010 Bedside Urine Occult Blood +/- Bedside Urine pH 7.5 Bedside Urine Protein + 30 Bedside Urine Urobilinogen - Negative Bedside Urine Nitrite - Negative Bedside Urine Leukocytes - Negative Esterase Point of care testing: Urine Dip Bedside Urine Glucose Negative Bedside Urine Bilirubin - Negative Bedside Urine Ketone - Negative Urine Specific [place] 1.010 Bedside Urine Occult Blood +/- Bedside Urine pH 7.5 Bedside Urine Protein + 30 Bedside Urine Urobilinogen - Negative Bedside Urine Nitrite - Negative Bedside Urine Leukocytes - Negative Esterase Imaging Data CT scan - head: Radiologist's impression: PROCEDURE: CT HEAD/BRAIN WO CON INDICATIONS: Htn with headache and hx of cva TECHNIQUE: Noncontrast 4.5 mm thick angled axial sections acquired from the foramen magnum to the vertex, with coronal and sagittal reformats. For radiation dose reduction, the following was used: automated exposure control, adjustment of mA and/or kV according to patient size. COMPARISON: None. FINDINGS: Image quality: Excellent. CSF spaces: Basal cisterns are patent. No extra-axial fluid collections. Ventricles are normal in size and shape. Brain: No midline shift. No intracranial masses or hemorrhage. Orozco-white matter interface is normal. Skull and face: Calvarium and visualized facial bones are intact, without suspicious lesions. Sinuses: Visualized sinuses and mastoids are clear. IMPRESSION: Moderate microvascular atherosclerotic change in the deep white matter of each hemisphere, without evidence of intracranial hemorrhage. No sign of stroke or mass. Dictated by: Michael Viera M.D. on 08/24/2019 at 20:07 Chest x-ray: Radiologist's impression: PROCEDURE: XR CHEST 1V INDICATIONS: hypertension TECHNIQUE: One view of the chest was acquired. COMPARISON: None. FINDINGS: Surgical changes and devices: None. Lungs and pleura: Lungs are edematous. No pleural effusions or pneumothorax. Mediastinum: Mediastinal contours appear normal. Heart size is at the upper limits of normal. Bones and chest wall: No suspicious bony lesions. Overlying soft tissues appear unremarkable. IMPRESSION: Generalized pulmonary edema pattern, suspect cardiogenic origin (acute). Dictated by: Michael Viera M.D. on 08/24/2019 at 20:07 ECG Data Attestation: I personally reviewed and interpreted this ECG as follows: Prior ECG tracings: not available for review Interpretation: Normal sinus rhythm rate 67 p.r. interval 203 QRS [address] elevation depression or T-wave inversion no priors to compare MDM Narrative Medical decision making narrative: Patient blood pressure has come down without any intervention. Hydrea does not seem to cause problems with blood pressure however can cause dizziness and lightheadedness. No signs or symptoms of stroke head CT does not show any acute findings. Blood work overall is reassuring. At this time I recommend she follow-up with her PCP in regards to possibly changing her blood pressure medication. She will also follow up with Hematology as needed. Discharge Plan Departure Patient Disposition: Home Clinical Impression: Hypertension Qualifiers: Hypertension type: essential hypertension Qualified Code(s): I10 - Essential (primary) hypertension Discharge Date/Time: 08/24/19 21:29 Instructions: DI for High Blood Pressure Activity Restrictions/Additional Instructions: *You have been diagnosed with hypertension *What to do: Her blood pressure was initially elevated but it has decreased in the emergency department. Please follow-up with her primary care provider you may require adjustments to her medication. Hydrea may or may not be related to your blood pressure problems it is not known to cause issues *Continue to take medications as directed *Follow up with your primary care provider in 2-3 days *Return to ER if you should have worsening headache chest pain shortness of breath dizziness passing out or any new, worsening or concerning symptoms Prescriptions: No Action losartan 50 mg Tablet 50 mg PO BID RF: 0 carvedilol 25 mg Tablet 25 mg PO BID RF: 0 aspirin 81 mg Tablet,Chewable 81 mg PO DAILY RF: 0 hydroxyurea [Hydrea] 500 mg Capsule 500 mg PO DAILY Qty: 30 RF: 6 simvastatin 10 mg Tablet 10 mg PO QPM RF: 0 Referrals: Carolann Morales PA-C [Primary Care Provider] -
[2019-08-24 19:58] LABS: Alanine Aminotransferase 23 IU/L (<35); Albumin 4.7 g/dL (3.5-5.0); Albumin Globulin Ratio 1.4 (1.0-2.8); Alkaline Phosphatase 71 U/L (38-126); Aspartate Aminotransferase 40 IU/L (14-36); Bilirubin Total 0.6 mg/dL (0.2-1.3); Blood Urea Nitrogen 21 mg/dL (7-17); Calcium 9.5 mg/dL (8.4-10.2); Carbon Dioxide 29 mmol/L (22-32); Chloride 94 mmol/L (98-107); Creatine Kinase 109 U/L (30-135); Estimated Glomerular Filt Rate > 60.0 mL/min (>60); Globulin 3.4 g/dL (1.7-4.1); Glucose 102 mg/dL (80-110); HEMOLYSIS 22 (0-50); Lipase 151 U/L (23-300); Potassium 3.5 mmol/L (3.4-5.1); Sodium 134 mmol/L (137-145); Total Protein 8.1 g/dL (6.3-8.2)
[2019-08-24 20:00] LABS: Add Manual Diff / Slide Review NO; Basophils Absolute Auto 0 /uL (0-100); Basophils Percent Auto 0.9 % (0-2); Eosinophils Absolute Auto 100 /uL (0-450); Eosinophils Percent Auto 1.5 % (2-4); Hematocrit 39.1 % (36-46); Hemoglobin 13.6 g/dL (12.0-16.0); Lymphocytes Absolute Auto 1400 /uL (1100-4500); Lymphocytes Percent Auto 27.1 % (25-40); Mean Corpuscular HGB Conc 34.8 % (30-36); Mean Corpuscular Hemoglobin 39.4 PG (26-34); Mean Corpuscular Volume 113.2 fL (80-100); Monocytes Absolute Auto 600 /uL (0-900); Monocytes Percent Auto 11.7 % (3-14); Neutrophils Absolute Auto 3100 /uL (1500-7000); Neutrophils Percent Auto 58.8 % (50-75); Platelet Count 247 X10^3/uL (150-400); Red Blood Cell Count 3.45 X10^6/uL (4.0-5.2); Red Cell Distribution Width 12.8 % (11.6-14.8); White Blood Cell Count 5.2 X10^3/uL (4.5-11.0)
[2019-08-24 20:02] LABS: Bacteria Urine None Seen
[2019-08-24 20:09] LABS: Culture Indicated Urine Cult Not Indicated; RBC Urine 0-1/HPF (0-5/HPF); Squamous Epithelial Cell Urine 0-1 /HPF (0-5/HPF); Urine Comments Microscopic Normal; WBC Urine 0-1/HPF (0-5/HPF)
[2019-08-24 20:09] LABS: Troponin I < 0.012 ng/mL (0.01-0.034)
[2019-08-24 20:13] LABS: CKMB % Relative Index 1.6 % (1.5-5.0); Creatine Kinase MB 1.76 ng/mL (<2.37)
[2019-08-24 20:18] LABS: Macrocytosis 2+
[2019-08-24 20:37] VITALS: BP 170/88; PULSE 67; RESP 19; O2SAT 95
[2019-08-24 21:01] VITALS: BP 160/96; PULSE 68; RESP 16; O2SAT 94
--- NOTE | 2019-08-24 21:03 | PC.NURSE ---
Pt checked her bp at home because she didn't feel right, it was elevated.
== END 2019-08-24 21:29 | disposition home or self-care (01) ==
PROVIDERS: Emergency Provider Emergency Medicine; Family Provider Physician Assistant; PCP Physician Assistant
DX: I10 Essential (primary) hypertension (principal); Z86.73 Personal history of transient ischemic attack (TIA), and cerebral infarction without residual deficits
CPT/HCPCS: 36415; 70450; 71045; 80053; 81003; 81015; 82550; 82553; 83690; 84484; 85025; 93005; 93010; 96360; 99283; 99285

== ENCOUNTER → 2019-11-02 15:00 | Outpatient (ROUT) | payer MEDICARE, SELFPAY | PROVIDERS: Family Provider Physician Assistant; PCP Physician Assistant; Visit Provider Internal Medicine | DX: R39.9 Unspecified symptoms and signs involving the genitourinary system (principal) | CPT/HCPCS: 87077; 87086; 87186 ==

== ENCOUNTER → 2020-02-07 08:52 | Outpatient (CLI) | payer MEDICARE, SELFPAY ==
[2020-02-07 10:41] LABS: BUN Creatinine Ratio 27.3 (6-22); Blood Urea Nitrogen 18 mg/dL (7-17); Calcium 9.9 mg/dL (8.4-10.2); Carbon Dioxide 28 mmol/L (22-32); Chloride 89 mmol/L (98-107); Cholesterol 168 mg/dL (140-199); Estimated Glomerular Filt Rate > 60.0 mL/min (>60); Glucose 101 mg/dL (80-110); HDL Cholesterol 58 mg/dL (40-60); HEMOLYSIS < 15 (0-50); LDL Cholesterol Calculated 98 mg/dL (<100); Magnesium 2.1 mg/dL (1.6-2.3); Potassium 4.8 mmol/L (3.4-5.1); Sodium 128 mmol/L (137-145); Triglycerides 59 mg/dL (35-150)
== END ==
PROVIDERS: Family Provider Physician Assistant; PCP Physician Assistant; Referring Provider Internal Medicine Cardiovascular Disease; Visit Provider Internal Medicine Cardiovascular Disease
DX: I10 Essential (primary) hypertension (principal)
CPT/HCPCS: 36415; 80048; 80061; 83735; 84443

== ENCOUNTER → 2020-02-09 14:50 | Outpatient (CLI) | payer MEDICARE, SELFPAY ==
[2020-02-10 20:24] LABS: COVID19 Sendout Not Detected (Not Detect)
== END ==
PROVIDERS: Family Provider Physician Assistant; PCP Physician Assistant; Visit Provider Registered Nurse
DX: Z01.818 Encounter for other preprocedural examination (principal)
CPT/HCPCS: 87635

== ENCOUNTER → 2020-02-13 08:00 | Outpatient (CLI) | payer MEDICARE, SELFPAY ==
--- NOTE | 2020-02-13 | DI.US.S_ITS ---
PROCEDURE: US CAROTID DOPPLER BI INDICATIONS: HYPERTENSION TECHNIQUE: Color and pulse Doppler interrogation was performed of both carotid systems, with image documentation and velocity measurements. COMPARISON: None. FINDINGS: Stenosis calculations are based on SRU (Society of Radiologists in Ultrasound) criteria. Right side: Brachial blood pressure: 132/70 mm Hg. Common carotid artery peak systolic velocity: 52 cm/sec. Internal carotid artery peak systolic velocity: 77 cm/sec. Internal carotid artery end diastolic velocity: 22 cm/sec. External carotid artery peak systolic velocity: 99 cm/sec. ICA/CCA peak systolic ratio: 1.5. Orozco scale imaging description: Minimal scattered plaque. Percent internal carotid artery stenosis: Less than 50%. Vertebral artery: Flow direction is antegrade. Left side: Brachial blood pressure: Not obtained secondary to the IV site. Common carotid artery peak systolic velocity: 70 cm/sec. Internal carotid artery peak systolic velocity: 112 cm/sec. Internal carotid artery end diastolic velocity: 16 cm/sec. External carotid artery peak systolic velocity: 133 cm/sec. ICA/CCA peak systolic ratio: 1.6. Orozco scale imaging description: Mild scattered plaque. Percent internal carotid artery stenosis: Less than 50%. Vertebral artery: Flow direction is antegrade. IMPRESSION: Less than 50% bilateral internal carotid artery stenosis. Dictated by: Venkata Arias [facility] Interpreted: Michael Viera MD on 02/13/2020 at 11:05 Approved by: Michael Viera M.D. on 02/13/2020 at 11:11
--- NOTE | 2020-02-13 | DI.ECHO.S_ITS ---
[facility] +---------+ : : [address] : : : : [id number] : : : : Phone: [phone] Echocardiogram Report + + :Name: RAVIN MCKEON Study Date: 02/13/2020 Height: 62 in : :[facility] Weight: 134 lb : : Gender: Female BSA: 1.6 m2 : :: 1940 Age: 79 yrs BP: 132/74 mmHg: :Reason For Study: SHORTNESS OF BREATH : :Ordering Physician: Miah : :Tony Lew Performed By: Nathalia Robbins : :Referring: MIAH LEW : + + Interpretation Summary The left ventricle is normal in size and wall thickness. The ejection fraction is estimated to be 55-60%. The right ventricle is at the upper limits of normal in size. The right ventricular systolic function is normal. The left atrium is severely dilated. Doppler evidence suggests a left to right interatrial shunt. The interatrial septum bows toward right atrium consistent with elevated left atrial pressure. There is mild to moderate mitral regurgitation. The IVC is of normal diameter and collapses greater than 50% with a sniff. This suggests a low right atrial pressure of 3 mm Hg. Procedure: A two-dimensional transthoracic echocardiogram with color flow and Doppler was performed. The study quality was technically good. There is no prior echocardiogram noted for this patient. The patient was in sinus bradycardia with heart rates between 53-60 bpm during the exam. Left Ventricle: The left ventricle is normal in size and wall thickness. There is no thrombus. The ejection fraction is estimated to be 55-60%. There are no focal wall motion abnormalities. MV E/A: 1.6 Med Peak E' Miquel: 6.7 cm/sec E/E' med: 12.8. Right Ventricle: The right ventricle is at the upper limits of normal in size. The right ventricular systolic function is normal. Atria: The left atrium is severely dilated. Right atrial size is normal. Doppler evidence suggests a left to right interatrial shunt. The interatrial septum bows toward right atrium consistent with elevated left atrial pressure. Mitral Valve: There is mild mitral annular calcification. The mitral valve leaflets are slightly calcified. The mitral valve chordae are thickened and/or calcified. There is mild to moderate mitral regurgitation. Aortic Valve: The aortic valve is trileaflet. The aortic valve opens well. There is no aortic valve stenosis. There is trace aortic regurgitation. Tricuspid Valve: The tricuspid valve is normal in structure and function. Pulmonary artery pressures cannot be estimated because of the lack of a measurable TR jet velocity but the IVC suggests a CVP of around 3 mmHg. There is trace tricuspid regurgitation. Pulmonic Valve: The pulmonic valve is normal in structure and function. There is trace pulmonic regurgitation. Great Vessels: The aortic root is normal size. The ascending aorta is normal in size. The IVC is of normal diameter and collapses greater than 50% with a sniff. This suggests a low right atrial pressure of 3 mm Hg. Pericardium/ Pleura There is no pericardial effusion. There is no pleural effusion. MMode/2D Measurements & Calculations LVIDd: 4.4 cm LVOT diam: 1.9 cm LVIDs: 3.0 cm Ao root diam: 2.7 cm FS: 30.6 % asc Aorta Diam: 3.0 cm EPSS: 0.76 cm IVSd: 0.94 cm LVPWd: 0.95 cm LV jorgensen. diameter/BSA (cm/m^2): 2.7 LV sys. diameter/BSA (cm/m^2): 1.9 LA A2 area: 22.8 cm2 RA long axis: 5.6 cm LA A4 area: 25.3 cm2 RA area: 17.4 cm2 LA length (vol): 5.6 cm RA vol: 46.0 ml LA vol: 88.1 ml RA : 28.6 ml/m2 LA vol index: 54.7 ml/m2 IVC diam: 2.1 cm RVD1 (basal): 4.0 cm TAPSE: 2.6 cm Doppler Measurements & Calculations Ao V2 max: 135.6 cm/sec LVOT Max Miquel: 88.6 cm/sec Ao V2 mean: 93.9 cm/sec LV V1 max P.1 mmHg Ao max P.4 mmHg LV V1 VTI: 23.8 cm Ao mean P.0 mmHg AMAURY(I,D): 1.8 cm2 Ao V2 VTI: 37.4 cm AMAURY(V,D): 1.8 cm2 sev ratio: 0.64 AMAURY indexed to BSA (cm^2/m^2): 1.1 MV E max miquel: 85.8 cm/sec PA V2 max: 57.8 cm/sec MV A max miquel: 54.0 cm/sec PA V2 mean: 40.8 cm/sec MV E/A: 1.6 PA mean P.76 mmHg Med Peak E' Miquel: 6.7 cm/sec E/E' med: 12.8 Lat Peak E' Miquel: 7.2 cm/sec E/E' lat: 12.0 E/e' average: 12.4 MV dec time: 0.17 sec SV(OT): 66.6 ml Reading Physician:06:23 PM
--- NOTE | 2020-02-13 12:03 | PM.TREADMILL ---
Cardiac Stress Test Report Referral & Results Date Patient Seen: 02/13/20 Time Patient Seen: 12:03 Indication: dyspnea Rest ECG: sinus rhythm with occasional PVC Procedure Note: Standard Nigel protocol 6 minutes 6.1 METS. Very good exercise capacity -27% hypertensive response to exercise. No chest pain or anginal symptoms. Resting ekg sinus rhythm with occasional PVC, no st shifts, occasional PACs and PVCs. Impression: Normal stress test with hypertensive reponse. Please note: Actual ECG tracings can be found in the PACS system.
--- NOTE | 2020-02-14 05:13 | DI.NM.S_ITS ---
DATE OF SERVICE: 02/13/2020 PROCEDURE: Exercise treadmill stress and rest myocardial perfusion imaging with gating to assess ejection fraction performed as a one day study. INDICATIONS: The patient is an 79-year-old hypertensive female with exertional dyspnea. CARDIAC STRESS: The patient was able to exercise for a total of 6 minutes on a standard Nigel protocol suggesting very good exercise capacity with an CHATA of - 27%. She had a normal heart rate response, achieving a maximum heart rate of 119 bpm (86% of her predicted maximum). She had a mild hypertensive blood pressure response with a resting blood pressure of 140/80 increasing to a maximum of 210/100. She had no chest discomfort or other anginal symptoms. Her resting ECG appears normal although she briefly had ventricular bigeminy at rest. With exercise, there were no significant ST- segment shifts and there were no arrhythmias. At 4 minutes 25 seconds of exercise at a heart rate of 114 bpm, 26.2 mCi of technetium-99m Myoview was injected. The patient was imaged 15 minutes later using as a gated SPECT acquisition protocol. Earlier in the day, she was injected with 9.8 mCi of technetium-99m Myoview at rest and was imaged 30 minutes later, again using a gated SPECT acquisition protocol. FINDINGS: RAW DATA: There is fair myocardial tracer uptake with mild breast attenuation noted across the anterior wall. Lung/heart ratio was normal at 0.25. The TID ratio was normal at 0.86. QUANTITATED GATED SPECT: Post-stress ejection fraction is estimated at 77% without any regional wall motion abnormality and specifically the distal anterior wall has brisk contractility. The resting ejection fraction is 75% with a similar contraction pattern. Resting end-diastolic volume is normal at 104 mL. MYOCARDIAL PERFUSION IMAGING: Post-stress supine images show a fairly normal myocardial perfusion pattern with a very subtle defect in the distal anterior wall extending to the apex. This defect essentially resolves on the prone images, although a very slight residual defect remains present. The resting images show an identical perfusion pattern without any improvement in the distal anterior defect. CONCLUSION: 1. Probable normal myocardial perfusion study. 2. Subtle fixed distal anterior and apical defect that nearly resolves on prone imaging. While a previous nontransmural infarction cannot be entirely excluded, this would seem unlikely given the subtlety of the abnormality and the brisk contractility in this area. There is no reversibility to suggest any myocardial ischemia. 3. Normal left ventricular systolic function without any focal wall motion abnormality. 4. Very good exercise capacity without angina or ECG changes of ischemia. She had a mild hypertensive blood pressure response to exercise and ventricular bigeminy at rest was also noted. Pena Laquita - RICHARD/saundra/charity doc#: [id number]/job#: [id number] dd: 02/13/2020 17:04:00 dt: 02/14/2020 04:57:00 DICTATING MD/COPIES TO: Phillip Aguilar MD; Jake Lomax MD COPIES MNE: SWETHA;
== END ==
PROVIDERS: Family Provider Physician Assistant; PCP Physician Assistant; Referring Provider Internal Medicine Cardiovascular Disease; Visit Provider Internal Medicine Cardiovascular Disease
DX: I65.23 Occlusion and stenosis of bilateral carotid arteries (principal); I34.0 Nonrheumatic mitral (valve) insufficiency; R06.09 Other forms of dyspnea; R06.02 Shortness of breath; I10 Essential (primary) hypertension
CPT/HCPCS: 78452; 93017; 93306; 93880; A9502

== ENCOUNTER → 2020-02-16 11:23 | Outpatient (CLI) | payer MEDICARE, SELFPAY ==
[2020-02-16 13:19] LABS: BUN Creatinine Ratio 23.9 (6-22); Blood Urea Nitrogen 16 mg/dL (7-17); Calcium 9.6 mg/dL (8.4-10.2); Carbon Dioxide 28 mmol/L (22-32); Chloride 89 mmol/L (98-107); Estimated Glomerular Filt Rate > 60.0 mL/min (>60); Glucose 71 mg/dL (80-110); HEMOLYSIS < 15 (0-50); Potassium 4.8 mmol/L (3.4-5.1); Sodium 127 mmol/L (137-145)
== END ==
PROVIDERS: Family Provider Physician Assistant; PCP Physician Assistant; Referring Provider Internal Medicine Cardiovascular Disease; Visit Provider Internal Medicine Cardiovascular Disease
DX: E78.1 Pure hyperglyceridemia (principal)
CPT/HCPCS: 36415; 80048

== ENCOUNTER → 2020-03-08 10:35 | Outpatient (CLI) | payer MEDICARE, SELFPAY ==
[2020-03-08 11:59] LABS: BUN Creatinine Ratio 23.2 (6-22); Blood Urea Nitrogen 13 mg/dL (7-17); Calcium 9.8 mg/dL (8.4-10.2); Carbon Dioxide 30 mmol/L (22-32); Chloride 91 mmol/L (98-107); Estimated Glomerular Filt Rate > 60.0 mL/min (>60); Glucose 79 mg/dL (80-110); HEMOLYSIS < 15 (0-50); Potassium 4.9 mmol/L (3.4-5.1); Sodium 127 mmol/L (137-145)
== END ==
PROVIDERS: Family Provider Physician Assistant; PCP Physician Assistant; Referring Provider Internal Medicine Cardiovascular Disease; Visit Provider Internal Medicine Cardiovascular Disease
DX: I10 Essential (primary) hypertension (principal)
CPT/HCPCS: 36415; 80048

== ENCOUNTER → 2020-06-15 10:49 | Outpatient (CLI) | payer MEDICARE, SELFPAY ==
[2020-06-15 11:24] LABS: Add Manual Diff / Slide Review NO; Basophils Absolute Auto 100 /uL (0-100); Basophils Percent Auto 0.8 % (0-2); Eosinophils Absolute Auto 100 /uL (0-450); Eosinophils Percent Auto 1.7 % (2-4); Hematocrit 37.9 % (36-46); Hemoglobin 12.8 g/dL (12.0-16.0); Lymphocytes Absolute Auto 600 /uL (1100-4500); Lymphocytes Percent Auto 8.3 % (25-40); Mean Corpuscular HGB Conc 33.7 % (30-36); Mean Corpuscular Hemoglobin 31.4 PG (26-34); Mean Corpuscular Volume 93.1 fL (80-100); Monocytes Absolute Auto 400 /uL (0-900); Monocytes Percent Auto 6.4 % (3-14); Neutrophils Absolute Auto 5700 /uL (1500-7000); Neutrophils Percent Auto 82.8 % (50-75); Platelet Count 689 X10^3/uL (150-400); Red Blood Cell Count 4.07 X10^6/uL (4.0-5.2); Red Cell Distribution Width 14.2 % (11.6-14.8); White Blood Cell Count 6.9 X10^3/uL (4.5-11.0)
[2020-06-15 11:35] LABS: Alanine Aminotransferase 22 IU/L (<35); Albumin 4.2 g/dL (3.5-5.0); Albumin Globulin Ratio 1.4 (1.0-2.8); Alkaline Phosphatase 57 U/L (38-126); Aspartate Aminotransferase 34 IU/L (14-36); BUN Creatinine Ratio 25.7 (6-22); Bilirubin Total 0.7 mg/dL (0.2-1.3); Blood Urea Nitrogen 18 mg/dL (7-17); Calcium 9.2 mg/dL (8.4-10.2); Carbon Dioxide 30 mmol/L (22-32); Chloride 93 mmol/L (98-107); Estimated Glomerular Filt Rate > 60.0 mL/min (>60); Globulin 3.1 g/dL (1.7-4.1); Glucose 101 mg/dL (80-110); HEMOLYSIS < 15 (0-50); Potassium 3.9 mmol/L (3.4-5.1); Sodium 129 mmol/L (137-145); Total Protein 7.3 g/dL (6.3-8.2)
== END ==
PROVIDERS: Internal Medicine Hematology & Oncology; Family Provider Physician Assistant; PCP Physician Assistant; Referring Provider Internal Medicine Cardiovascular Disease; Visit Provider Internal Medicine Cardiovascular Disease
DX: E87.5 Hyperkalemia (principal); D47.3 Essential (hemorrhagic) thrombocythemia
CPT/HCPCS: 36415; 80053; 85025

== ENCOUNTER → 2020-06-21 15:34 | Outpatient (CLI) | payer MEDICARE, SELFPAY ==
[2020-06-21 17:50] LABS: BUN Creatinine Ratio 23.3 (6-22); Blood Urea Nitrogen 14 mg/dL (7-17); Calcium 9.6 mg/dL (8.4-10.2); Carbon Dioxide 33 mmol/L (22-32); Chloride 89 mmol/L (98-107); Estimated Glomerular Filt Rate > 60.0 mL/min (>60); Glucose 81 mg/dL (80-110); HEMOLYSIS < 15 (0-50); Potassium 4.3 mmol/L (3.4-5.1); Sodium 127 mmol/L (137-145)
[2020-06-22 11:17] LABS: Osmolality, Serum 266 mOsmol/kg (280-301)
== END ==
PROVIDERS: Family Provider Physician Assistant; PCP Physician Assistant; Referring Provider Physician Assistant; Visit Provider Internal Medicine Cardiovascular Disease
DX: I10 Essential (primary) hypertension (principal); E87.1 Hypo-osmolality and hyponatremia
CPT/HCPCS: 36415; 80048; 83930

== ENCOUNTER → 2020-07-12 09:42 | Outpatient (CLI) | payer MEDICARE, SELFPAY ==
[2020-07-12 12:00] LABS: Collection Time Urine 24 Hours; Sodium 24 Hour Urine 86 mmol/day (40-220); Sodium Urine Random 45 mmol/L (30-90); Total Volume Urine 1900 mL
[2020-07-13 13:12] LABS: 24 Hour Ur Protein Calculated 146 mg/24 hr (30-150)
== END ==
PROVIDERS: Family Provider Physician Assistant; PCP Physician Assistant; Referring Provider Physician Assistant; Visit Provider Physician Assistant
DX: E22.2 Syndrome of inappropriate secretion of antidiuretic hormone (principal); E87.1 Hypo-osmolality and hyponatremia; I10 Essential (primary) hypertension; D47.3 Essential (hemorrhagic) thrombocythemia; E55.9 Vitamin D deficiency, unspecified; R80.9 Proteinuria, unspecified
CPT/HCPCS: 36415; 84156; 84300

== ENCOUNTER → 2020-07-16 14:38 | Outpatient (CLI) | payer MEDICARE, SELFPAY ==
[2020-07-16 15:13] LABS: Add Manual Diff / Slide Review NO; Basophils Absolute Auto 100 /uL (0-100); Basophils Percent Auto 1.1 % (0-2); Eosinophils Absolute Auto 100 /uL (0-450); Eosinophils Percent Auto 1.4 % (2-4); Hematocrit 38.9 % (36-46); Hemoglobin 13.1 g/dL (12.0-16.0); Lymphocytes Absolute Auto 900 /uL (1100-4500); Lymphocytes Percent Auto 12.3 % (25-40); Mean Corpuscular HGB Conc 33.7 % (30-36); Mean Corpuscular Hemoglobin 32.5 PG (26-34); Mean Corpuscular Volume 96.5 fL (80-100); Monocytes Absolute Auto 500 /uL (0-900); Monocytes Percent Auto 6.8 % (3-14); Neutrophils Absolute Auto 6000 /uL (1500-7000); Neutrophils Percent Auto 78.4 % (50-75); Platelet Count 490 X10^3/uL (150-400); Red Blood Cell Count 4.03 X10^6/uL (4.0-5.2); Red Cell Distribution Width 17.4 % (11.6-14.8); White Blood Cell Count 7.7 X10^3/uL (4.5-11.0)
[2020-07-16 15:20] LABS: BUN Creatinine Ratio 26.7 (6-22); Blood Urea Nitrogen 20 mg/dL (7-17); Calcium 9.3 mg/dL (8.4-10.2); Carbon Dioxide 31 mmol/L (22-32); Chloride 96 mmol/L (98-107); Estimated Glomerular Filt Rate > 60.0 mL/min (>60); Glucose 98 mg/dL (80-110); HEMOLYSIS < 15 (0-50); Sodium 130 mmol/L (137-145)
[2020-07-16 15:21] LABS: C-Reactive Protein Quant < 0.5 mg/dL (<1.0)
[2020-07-16 15:48] LABS: Sodium Urine Random 94 mmol/L (30-90)
[2020-07-16 15:49] LABS: Erythrocyte Sedimentation Rate 12 MM/HR (0-20)
[2020-07-16 16:12] LABS: TSH w/ Reflex to FT4 1.53 uIU/mL (0.47-4.68)
[2020-07-17 19:00] LABS: Osmolality Urine 458 mOsmol/kg (.)
== END ==
PROVIDERS: Family Provider Physician Assistant; PCP Physician Assistant; Referring Provider Physician Assistant; Visit Provider Physician Assistant
DX: E22.2 Syndrome of inappropriate secretion of antidiuretic hormone (principal); E78.1 Pure hyperglyceridemia; I10 Essential (primary) hypertension; D47.3 Essential (hemorrhagic) thrombocythemia; E87.1 Hypo-osmolality and hyponatremia; E55.9 Vitamin D deficiency, unspecified
CPT/HCPCS: 36415; 80048; 82306; 83935; 84300; 84443; 85025; 85651; 86140

== ENCOUNTER → 2021-01-16 09:13 | Outpatient (CLI) | payer MEDICARE, OTHER, SELFPAY ==
--- NOTE | 2021-01-16 | DI.US.S_ITS ---
LIMITED ULTRASOUND OF RIGHT BREAST AND AXILLA: 01/16/2021 CLINICAL: Patient returns today to evaluate a focal asymmetry in the right breast + palpable axillary lump. Comparison is made to exams dated: 01/16/2021 mammogram, 03/13/2014 mammogram, 03/07/2011 mammogram, and 05/17/2009 mammogram - [facility]. Color flow and real-time ultrasound of the right breast 2-3 o'clock, and axilla regions were performed. Orozco scale images of the real-time examination were reviewed. There is a 2.1 cm x 1.8 cm x 0.6 cm oval enlarged lymph node in the right axillary tail. This oval enlarged lymph node is isoechoic with fatty hilum. This likely correlates with mammography findings. Color flow imaging demonstrates that there is an adjacent vascularity. Cortical thickness is within normal limits. This is in the region of the palpable abnormality. There also are two benign 0.3 cm oval cysts in the right breast at 2 o'clock middle depth 4 cm from the nipple. This oval cysts are anechoic. This correlates with mammography findings. Color flow imaging demonstrates that there is no vascularity present. IMPRESSION: SUSPICIOUS OF MALIGNANCY 1) The 2.1 cm enlarged lymph node in the right axillary tail is at a low suspicion for malignancy. -An ultrasound guided biopsy is recommended. 2) Small oval cysts in the right breast at 2 o'clock are consistent with a simple cysts and are benign. Exam findings were discussed with the patient. This exam was interpreted at Station ID: [id number]. Electronically Signed By: Nawaf Hinton M.D. slc/:01/16/2021 11:50:33 copy to: Carolann Morales letter sent: Biopsy Required Ultrasound BI-RADS: 4a Low suspicion for malignancy
--- NOTE | 2021-01-16 09:14 | DI.MG.S_ITS ---
BILATERAL DIGITAL DIAGNOSTIC MAMMOGRAM 3D/2D: 01/16/2021 CLINICAL: Lump Right axillary tail. Comparison is made to exams dated: 03/13/2014 mammogram, 03/07/2011 mammogram, and 05/17/2009 mammogram - [facility]. There are scattered fibroglandular elements in both breasts. There is a 2 cm round enlarged lymph node in the right breast posterior depth superior region seen on the mediolateral oblique view only. This correlates as palpated. There also is a 0.3 cm oval mass in the right breast at 3 o'clock middle depth. This is more prominent. No other significant masses, calcifications, or other findings are seen in either breast. IMPRESSION: INCOMPLETE: NEEDS ADDITIONAL IMAGING EVALUATION 1) The 2 cm round enlarged lymph node in the right breast posterior depth superior region seen on the mediolateral oblique view only is indeterminate. -A targeted ultrasound is recommended and will immediately follow. 2) The 0.3 cm oval mass in the right breast at 3 o'clock middle depth is indeterminate. -A targeted ultrasound is recommended and will immediately follow. This exam was interpreted at Station ID: [id number]. NOTE: For mammograms, a report in lay terms will be sent to the patient. Approximately 15% of breast malignancies will not be visualized mammographically. In the management of a palpable breast mass, a negative mammogram must not discourage biopsy of a clinically suspicious lesion. Electronically Signed By: Nawaf Hinton M.D. slc/:01/16/2021 10:48:23 copy to: Carolann Morales [facility] BI-RADS Category 0: Incomplete [id number]
== END ==
PROVIDERS: Family Provider Physician Assistant; PCP Physician Assistant; Referring Provider Internal Medicine Hematology & Oncology; Visit Provider Internal Medicine Hematology & Oncology
DX: N63.31 Unspecified lump in axillary tail of the right breast (principal); R92.8 Other abnormal and inconclusive findings on diagnostic imaging of breast; R59.0 Localized enlarged lymph nodes; N60.01 Solitary cyst of right breast
CPT/HCPCS: 76642; 77066; G0279

== ENCOUNTER → 2021-01-22 10:08 | Outpatient (CLI) | payer MEDICARE, OTHER, SELFPAY | PROVIDERS: Family Provider Physician Assistant; PCP Physician Assistant; Referring Provider Specialist; Visit Provider Specialist | DX: R39.9 Unspecified symptoms and signs involving the genitourinary system (principal); N39.0 Urinary tract infection, site not specified; Z87.440 Personal history of urinary (tract) infections; N95.2 Postmenopausal atrophic vaginitis | CPT/HCPCS: 51798; 81002; 87086; 99214 ==

== ENCOUNTER → 2021-01-23 14:07 | Outpatient (CLI) | payer MEDICARE, OTHER, SELFPAY ==
--- NOTE | 2021-01-23 | DI.MG.S_ITS ---
UNILATERAL RIGHT DIGITAL DIAGNOSTIC MAMMOGRAM POST-EXCISIONAL BIOPSY: 01/23/2021 CLINICAL: Right breast mass. Comparison is made to exams dated: 01/16/2021 ultrasound, 01/16/2021 mammogram, and 03/13/2014 mammogram - [facility]. There are scattered fibroglandular elements in right breast. There is a marker clip in the appropriate position in the right axillary tail. This marker clip placement is at the biopsy site. IMPRESSION: POST PROCEDURE MAMMOGRAM FOR MARKER PLACEMENT There was a successful marker clip placement in the right axillary tail. This exam was interpreted at Station ID: [id number]. NOTE: For mammograms, a report in lay terms will be sent to the patient. Approximately 15% of breast malignancies will not be visualized mammographically. In the management of a palpable breast mass, a negative mammogram must not discourage biopsy of a clinically suspicious lesion. Electronically Signed By: Marko arias/:01/23/2021 16:20:35 copy to: Carolann Morales [facility] BI-RADS Category Post-procedure mammogram for marker placement
--- NOTE | 2021-01-23 | PATH_ITS ---
[facility] Accession Number: [id number] . 01 Material submitted: . breast - RT AXILLARY LYMPH NODE . 02 Diagnosis: Right Axillary Lymph Node, Core Needle Biopsies: Lymphoid tissue; negative for malignancy. MRV 01/29/2021 1425 Local . 02 Electronically signed: . Mary Pineda MD, Pathologist NPI- [id number] . 01 Gross description: . The specimen is received in formalin labeled right axilla and consists of multiple hardin cores of soft tissue ranging from 0.2 to 0.4 cm in length x 0.1 cm in diameter. The specimen is entirely submitted in cassette A1. ([id number]) /[facility] 01/24/2021 1738 Local . 02 Microscopic: . An immunohistochemical stain was performed to evaluate for cells of interest and is negative. The control stain showed appropriate reactivity. . RESULTS: VEL: Negative. . INTERPRETATION: No evidence of metastatic carcinoma by immunohistochemistry. . * This test was developed and its performance characteristics determined by [facility]. It has not been cleared or approved by the U.S. Food and Drug Administration. The FDA has determined that such clearance or approval is not necessary. This test is used for clinical purposes. It should not be regarded as investigational or for research. . 02 Pathologist provided ICD-10: R59.9 . 02 CPT . 517618, S00809 Performed at: 01 [facility] [address], [place], [place] [id number] MD Dilan Zhou MD Phone: [phone] Performed at: 02 [facility] [place] [address] [place], [place] [id number] MD Mary Pineda MD Phone: [phone]
--- NOTE | 2021-01-23 14:09 | DI.US.S_ITS ---
ULTRASOUND GUIDED BIOPSY RIGHT BREAST WITH MARKING DEVICE INSERTED: 01/23/2021 CLINICAL: Rt axillary lymph node biopsy. PATIENT CONSENT: Risks (minor bleeding, infection, vasovagal reaction and repeat procedure), benefits and alternatives were explained to the patient and written informed consent was obtained. Correlation is made to exams dated: 01/23/2021 mammogram, 01/16/2021 ultrasound, 01/16/2021 mammogram, and 03/13/2014 mammogram - [facility]. An ultrasound guided biopsy using real-time ultrasound was performed for the lymph node located in the right axillary tail. The skin was prepped in the usual manner. Local anesthetic was administered to the access site. A small incision was made in the breast. The abnormality was approached from the lateral aspect. A biopsy needle was placed adjacent to the abnormality under ultrasound guidance. Once the needle was documented to be in the correct location, multiple specimens were obtained using a BARD biopsy device. A clip was inserted into the biopsy cavity. The specimens were sent to the laboratory for pathological analysis. IMPRESSION: ULTRASOUND GUIDED BIOPSY BENIGN Ultrasound guided biopsy of the lymph node in the right axillary tail was successful. Pathology indicates benign lymph node (LN). Pathology results are concordant with imaging findings. Recommend return to annual screening mammogram. Next mammogram due in approximately one year. This exam was interpreted at Station ID: [id number]. Marko arias,venkaty/:01/30/2021 18:31:18 copy to: Carolann Morales
== END ==
PROVIDERS: Family Provider Physician Assistant; PCP Physician Assistant; Referring Provider Internal Medicine Hematology & Oncology; Visit Provider Internal Medicine Hematology & Oncology
DX: N63.31 Unspecified lump in axillary tail of the right breast (principal); R59.0 Localized enlarged lymph nodes
CPT/HCPCS: 38505; 76942; 77065

== ENCOUNTER 2021-02-11 17:57 | Emergency (ER) | payer MEDICARE, OTHER, SELFPAY ==
[2021-02-11] VITALS (14 sets, daily range): BP systolic 153–221; BP diastolic 66–102; PULSE 61–69; RESP 14–24; TEMP 36.5–36.9; O2SAT 97–98; BMI 24.1
--- NOTE | 2021-02-11 18:14 | DI.RAD.S_ITS ---
PROCEDURE: XR CHEST 1V INDICATIONS: chest pain TECHNIQUE: One view of the chest was acquired. COMPARISON: [facility], CR, XR CHEST 1V, 08/24/2019, 19:40. FINDINGS: Surgical changes and devices: None. Lungs and pleura: Mild left basilar atelectasis. Lungs are clear. No pleural effusions or pneumothorax. Mediastinum: Mediastinal contours appear normal. Heart size is normal. There is a moderate-sized hiatal hernia. Bones and chest wall: No suspicious bony lesions. Overlying soft tissues appear unremarkable. IMPRESSION: No acute cardiopulmonary disease. Moderate size hiatal hernia and mild left basilar atelectasis. Dictated by: Fartun Mckeon M.D. on 02/11/2021 at 19:04 Approved by: Fartun Mckeon M.D. on 02/11/2021 at 19:05
[2021-02-11 18:21] LABS: Bacteria Urine None Seen; WBC Urine None Seen (0-5/HPF)
[2021-02-11 18:28] LABS: Appearance Urine UA CLEAR; Bilirubin Urine UA NEGATIVE (NEGATIVE); Color Urine UA YELLOW; Glucose Urine UA NEGATIVE (Negative); Ketones Urine UA NEGATIVE (NEGATIVE); Leukocyte Esterase Urine UA NEGATIVE (NEGATIVE); Nitrite Urine UA NEGATIVE (Negative); Occult Blood Urine UA 2+ (Negative); Protein Urine UA NEGATIVE (Negative); Specific Gravity Urine UA 1.015 (1.000-1.035); Urobilinogen Urine UA 0.2 E.U./dL (0.2)
[2021-02-11 18:36] LABS: Culture Indicated Urine Cult Not Indicated; RBC Urine 0-1/HPF (0-5/HPF); Squamous Epithelial Cell Urine 0-1 /HPF (0-5/HPF)
--- NOTE | 2021-02-11 19:39 | ED.GENADULT ---
HPI - General Adult General Chief complaint: Hypertension Stated complaint: VERY HIGH BLOOD PRESSURE Time Seen by Provider: 02/11/21 19:38 Source: patient Mode of arrival: Ambulatory Limitations: no limitations History of Present Illness HPI narrative: This is a pleasant 80-year-old female comes with complaint of elevated blood pressure. She states she checked her blood pressure this morning was in the 220 range systolic. She has felt little bit of mild pressure in her head which she describes a mild headache. She denies any dizziness or syncope/near syncope. She denies any numbness, tingling or weakness in her extremities. No difficulty with speech. She states she just has not felt herself. She denies any chest pain or pressure and she notes some new shortness of breath when she exercises but this is been going on for some time. No acute changes in her breathing. No nausea, no vomiting, no other new GI or urinary symptoms other than urinary frequency solely here in the emergency department. Patient states she did have her medications adjusted. She was started on terazosin [address] Lomax her general matcher 2 weeks ago. She noticed her symptoms a couple days after this. She takes aspirin 81 mg Coreg 25 mg twice daily, hydrochlorothiazide, hydroxyurea, losartan 50 mg and simvastatin. Patient has not had her evening meds which include her losartan, carvedilol and simvastatin which are usually at 6:30 p.m. except for the terazosin which she takes before sleep. Related Data Home Medications Medication Instructions Recorded Confirmed aspirin 81 mg PO DAILY 11/22/18 01/31/21 carvedilol 25 mg PO BID 11/22/18 01/31/21 losartan 50 mg PO BID 11/22/18 01/31/21 simvastatin 10 mg PO QPM 04/25/19 01/31/21 hydrochlorothiazide 12.5 mg PO DAILY 03/22/20 01/31/21 lutein 10 mg PO DAILY 07/05/20 01/31/21 cranberry extract 650 mg capsule 1,300 mg PO DAILY 01/22/21 01/31/21 terazosin 2 mg capsule 2 mg PO DAILY 01/22/21 01/31/21 Previous Rx's Medication Instructions Recorded hydroxyurea 500 mg PO DAILY #30 cap 09/10/20 hydroxyurea 500 mg PO DAILY #30 cap 01/03/21 estradiol 1 g VAGINAL 2XW #42.5 g 02/07/21 Allergies Allergy/AdvReac Type Severity Reaction Status Date / Time lisinopril Allergy Mild Verified 01/22/21 09:59 Review of Systems Review of Systems ROS Unobtainable: All systems reviewed & are unremarkable except as noted in HPI and below Patient History Medical History Anxiety and depression Bilateral cataracts Chronic UTI CVA (cerebral vascular accident) Essential (primary) hypertension H/O Mohs micrographic surgery for skin cancer History of UTI Hyperlipidemia Lower urinary tract symptoms (LUTS) Osteopenia Postmenopausal atrophic vaginitis Skin cancer Urinary calculi UTI (urinary tract infection) Surgical History History of total right hip replacement S/P dilation and curettage Status post total hip replacement, left Family History Mother Bipolar depression Father Pneumonia Social History Smoking Status: Never smoker alcohol intake: current (wine) substance use type: does not use Smoking Status: Never smoker Substance Use Type: does not use Exam Narrative Exam Narrative: GEN: well nourished, well appearing female, alert and oriented x 3, patient appears to be in mild distress. HEENT: Atraumatic, pupils are equal round reactive to light, extraocular movements are intact. HEART: Regular rate and rhythm without murmur, clicks, rubs. Pulses equal bilateral upper extremities. LUNGS:Lungs clear to auscultation, no wheezes, rales, crackles, chest moves symmetrically ABD:bowel sounds normal, soft, non-tender, no guarding, rebound, rigidity, no masses noted, no hepatosplenomegaly :No CVA tenderness MSCL: full range of motion, normal gait NEURO:CN 2-12 intact, sensation normal. 5/5 muscle strength in upper and lower extremities. SKIN: No rash or skin changes noted. Initial Vital Signs Initial Vital Signs: Vital Signs Temperature 98.4 F 02/11/21 18:10 Pulse Rate 69 02/11/21 18:10 Respiratory Rate 16 02/11/21 18:10 Blood Pressure 221/102 H 02/11/21 18:10 Pulse Oximetry 98 02/11/21 18:10 Scores GCS Jaclyn coma scale eye opening: Spontaneous Jaclyn coma scale verbal response: Orientated Jaclyn coma scale motor response: Obey commands [place] coma scale total score: 15 Course Orders Ordered: ED Orders 02/11/21 18:14 XR chest 1V Stat Urinalysis and Microscopic Stat EKG-12 Lead Stat 02/11/21 20:00 CT head/brain wo con Stat 02/11/21 20:28 Complete Blood Count AUTO DIFF Stat 02/11/21 20:38 Comprehensive Metabolic Panel Stat Lipase Stat Troponin & CK Cardiac Panel Stat Discontinued Medications Carvedilol (Carvedilol 12.5 Mg Tablet) 25 mg PO NOW ONE Stop: 02/11/21 19:40 Last Admin: 02/11/21 20:13 Dose: Not Given Documented by: SUJATA Carvedilol (Carvedilol 12.5 Mg Tablet) 25 mg PO NOW ONE Stop: 02/11/21 20:12 Last Admin: 02/11/21 20:19 Dose: 25 mg Documented by: SUJATA Sodium Chloride (Normal Saline 0.9%) 1,000 mls @ 1,000 mls/hr IV BOLUS ONE Stop: 02/11/21 22:14 Last Admin: 02/11/21 21:39 Dose: 1,000 mls/hr Documented by: SUJATA Losartan Potassium (Losartan 50 Mg Tablet) 50 mg PO NOW ONE Stop: 02/11/21 20:01 Last Admin: 02/11/21 20:20 Dose: 50 mg Documented by: SUJATA Vital Signs Vital signs: Vital Signs - 8 hr 02/11/21 18:56 02/11/21 19:00 02/11/21 19:20 Temperature Pulse Rate 66 Respiratory Rate 24 Blood Pressure 213/97 H 196/96 H Pulse Oximetry 98 02/11/21 19:30 02/11/21 20:27 02/11/21 20:30 Temperature Pulse Rate 61 62 62 Respiratory Rate 15 17 14 Blood Pressure 196/85 H 209/96 H 198/99 H Pulse Oximetry 97 97 98 02/11/21 21:14 02/11/21 21:16 02/11/21 21:30 Temperature Pulse Rate 68 67 64 Respiratory Rate 15 16 Blood Pressure 186/81 H Pulse Oximetry 97 97 97 02/11/21 21:31 02/11/21 22:35 Temperature 97.7 F Pulse Rate 63 65 Respiratory Rate 16 16 Blood Pressure 153/71 H 153/66 H Pulse Oximetry 97 98 Medical Decision Making Lab Data Lab results reviewed: Yes I reviewed the patient's lab results. Result diagrams: 02/11/21 20:28 02/11/21 20:38 Labs: Lab Results 02/11/21 02/11/21 02/11/21 Range/Units 18:14 19:15 20:28 WBC Cancelled 8.2 RBC Cancelled 3.49 L Hgb Cancelled 13.0 Hct Cancelled 37.5 MCV Cancelled 107.6 H MCH Cancelled 37.3 H MCHC Cancelled 34.7 RDW Cancelled 13.2 Plt Count Cancelled 324 Neut % (Auto) Cancelled 79.5 H Lymph % (Auto) Cancelled 13.3 L Dickson % (Auto) Cancelled 5.6 Eos % (Auto) Cancelled 0.9 L Baso % (Auto) Cancelled 0.7 Neut # (Auto) Cancelled 6500 Lymph # (Auto) Cancelled 1100 Dickson # (Auto) Cancelled 500 Eos # (Auto) Cancelled 100 Baso # (Auto) Cancelled 100 Sodium (137-145) mmol/L Potassium (3.4-5.1) mmol/L Chloride (98-107) mmol/L Carbon Dioxide (22-32) mmol/L BUN (7-17) mg/dL Creatinine (0.52-1.04) mg/dL Estimated GFR (>60) mL/min BUN/Creatinine Ratio (6-22) Glucose (80-110) mg/dL Calcium (8.4-10.2) mg/dL Total Bilirubin (0.2-1.3) mg/dL AST (14-36) IU/L ALT (<35) IU/L Alkaline Phosphatase (38-126) U/L Total Creatine Kinase (30-135) U/L CK-MB (CK-2) (<2.37) ng/mL CK-MB (CK-2) Rel Index (1.5-5.0) % Troponin I (0.01-0.034) ng/mL Total Protein (6.3-8.2) g/dL Albumin (3.5-5.0) g/dL Globulin (1.7-4.1) g/dL Albumin/Globulin Ratio (1.0-2.8) Lipase (23-300) U/L Urine Color Yellow Urine Appearance Clear Urine pH 7.0 (4.5-8.0) Ur Specific [place] 1.015 (1.000-1.035) Urine Protein Negative (Negative) Urine Glucose (UA) Negative (Negative) g/dL Urine Ketones Negative (NEGATIVE) Urine Occult Blood 2+ H (Negative) Urine Nitrate Negative (Negative) Urine Bilirubin Negative (NEGATIVE) Urine Urobilinogen 0.2 (0.2) E.U./dL Ur Leukocyte Esterase Negative (NEGATIVE) Urine RBC 0-1/hpf (0-5/HPF) Urine WBC None seen (0-5/HPF) Ur Squamous Epith Cells 0-1 /hpf (0-5/HPF) Urine Bacteria None seen (None) Ur Culture Indicated? Cult not indicated 02/11/21 Range/Units 20:38 WBC RBC Hgb Hct MCV MCH MCHC RDW Plt Count Neut % (Auto) Lymph % (Auto) Dickson % (Auto) Eos % (Auto) Baso % (Auto) Neut # (Auto) Lymph # (Auto) Dickson # (Auto) Eos # (Auto) Baso # (Auto) Sodium 126 L (137-145) mmol/L Potassium 3.5 (3.4-5.1) mmol/L Chloride 90 L (98-107) mmol/L Carbon Dioxide 27 (22-32) mmol/L BUN 14 (7-17) mg/dL Creatinine 0.45 L (0.52-1.04) mg/dL Estimated GFR > 60.0 (>60) mL/min BUN/Creatinine Ratio 31.1 H (6-22) Glucose 101 (80-110) mg/dL Calcium 9.1 (8.4-10.2) mg/dL Total Bilirubin 0.5 (0.2-1.3) mg/dL AST 45 H (14-36) IU/L ALT 25 (<35) IU/L Alkaline Phosphatase 65 (38-126) U/L Total Creatine Kinase 172 H (30-135) U/L CK-MB (CK-2) 2.15 (<2.37) ng/mL CK-MB (CK-2) Rel Index 1.3 L (1.5-5.0) % Troponin I < 0.012 (0.01-0.034) ng/mL Total Protein 7.8 (6.3-8.2) g/dL Albumin 4.5 (3.5-5.0) g/dL Globulin 3.3 (1.7-4.1) g/dL Albumin/Globulin Ratio 1.4 (1.0-2.8) Lipase 115 (23-300) U/L Urine Color Urine Appearance Urine pH (4.5-8.0) Ur Specific [place] (1.000-1.035) Urine Protein (Negative) Urine Glucose (UA) (Negative) g/dL Urine Ketones (NEGATIVE) Urine Occult Blood (Negative) Urine Nitrate (Negative) Urine Bilirubin (NEGATIVE) Urine Urobilinogen (0.2) E.U./dL Ur Leukocyte Esterase (NEGATIVE) Urine RBC (0-5/HPF) Urine WBC (0-5/HPF) Ur Squamous Epith Cells (0-5/HPF) Urine Bacteria (None) Ur Culture Indicated? Imaging Data Chest x-ray: Radiologist's Impression: [address] [id number] ReportSigned Patient: Laquita Pena [facility]#: [id number]: 1940cct:[id number]/Sex: 80 / FDate of Service: 02/11/21Loc: EDAccession Number: [id number] Procedure: XR chest 1V Ordering Provider: Penny Fountain D.O. PROCEDURE: XR CHEST 1V INDICATIONS: chest pain TECHNIQUE: One view of the chest was acquired. COMPARISON: [facility], XR CHEST 1V, 08/24/2019, 19:40. FINDINGS: Surgical changes and devices: None. Lungs and pleura: Mild left basilar atelectasis. Lungs are clear. No pleural effusions or pneumothorax. Mediastinum: Mediastinal contours appear normal. Heart size is normal. There is a moderate-sized hiatal hernia. Bones and chest wall: No suspicious bony lesions. Overlying soft tissues appear unremarkable. IMPRESSION: No acute cardiopulmonary disease. Moderate size hiatal hernia and mild left basilar atelectasis. Dictated by: Fartun Mckeon M.D. on 02/11/2021 at 19:04 Approved by: Fartun Mckeon M.D. on 02/11/2021 at 19:05 CT scan - head: Radiologist's Impression: [address] [id number] Scan ReportSigned Patient: Laquita Pena HMR#: [id number]: 9Acct:[id number]/Sex: 80 / FDate of Service: 02/11/21Loc: EDAccession Number: [id number] Procedure: CT head/brain wo con Ordering Provider: Penny Fountain D.O. PROCEDURE: CT HEAD/BRAIN WO CON INDICATIONS: gant, hypertension TECHNIQUE: Noncontrast 4.5 mm thick angled axial sections acquired from the foramen magnum to the vertex, with coronal and sagittal reformats. For radiation dose reduction, the following was used: automated exposure control, adjustment of mA and/or kV according to patient size. COMPARISON: [facility], CT, CT HEAD/BRAIN WO CON, 08/24/2019, 19:47. FINDINGS: Image quality: Excellent. CSF spaces: Basal cisterns are patent. No extra-axial fluid collections. The ventricles are symmetric in size and shape. Brain: No intracranial bleeds or masses. There is moderate cerebral volume loss for age, with resultant ventricular and sulcal prominence. There are moderate periventricular and deep white matter chronic small vessel ischemic changes. There is intracranial internal carotid artery atherosclerosis. Skull and face: Calvarium and visualized facial bones appear intact, without suspicious lesions. Sinuses: Visualized sinuses and mastoids are clear. IMPRESSION: 1. No acute intracranial abnormalities. 2. Cerebral volume loss and chronic microvascular ischemic changes. Dictated by: Fartun Mckeon M.D. on 02/11/2021 at 20:38 Approved by: Fartun Mckeon M.D. on 02/11/2021 at 20:39 ECG Data Attestation: I personally reviewed and interpreted this ECG as follows: Prior ECG tracings: available for review Interpretation: Sinus rhythm rate of 64 OH 198 QRS 84 and QTC of 425. No acute ST changes appreciated. MDM Narrative Medical decision making narrative: Patient was noted to be hypertensive upon arrival she was slowly improving on the department but had not had her evening medications which he typically takes around 630 in the evening so these were given. Patient did note she has had a headache so head CT was ordered secondary to having some to significantly elevated systolic and diastolic pressure. This was negative but she has had some mild symptoms which are consistent with her hyponatremia. Her new medication is an unlikely cause bought her combination of losartan hydrochlorothiazide could potentially be. She did state that she had had her losartan doubled for short period of time until she had her terazosin started. Discussed with patient to continue her home medications but hold her losartan and to discuss with Cardiology how to best adjust her medications for her resistant hypertension. Patient's pressure had improved significantly here in the department. Patient was suraj to ambulate to and from the bathroom several times but was negative for any signs of infection. Discharge Plan Departure Patient Disposition: Home Clinical Impression: Hypertension, Hyponatremia Instructions: DI for Hyponatremia Activity Restrictions/Additional Instructions: Follow up in the next 24-48 hours for recheck and repeat sodium levels. Your sodium level today is low this may be related to your medications, the combination of hydrochlorothiazide and losartan can cause your sodium levels to drop. I would recommend holding your losartan for the next 1-2 days and discussing with your physician or general matcher. Please return for lightheadedness or passing, severe headaches, chest pain or shortness of breath, persistent vomiting, new weakness, numbness or tingling, difficulty with movement, confusion or altered mental status or other new or concerning symptoms. Prescriptions: No Action estradiol 0.01 % (0.1 mg/gram) cream 1 g vaginal 2XW Qty: 42.5 RF: 5 losartan 50 mg Tablet 50 mg PO BID RF: 0 carvedilol 25 mg Tablet 25 mg PO BID RF: 0 aspirin 81 mg Tablet,Chewable 81 mg PO DAILY RF: 0 simvastatin 10 mg Tablet 10 mg PO QPM RF: 0 hydrochlorothiazide 12.5 mg Capsule 12.5 mg PO DAILY RF: 0 lutein 10 mg Tablet 10 mg PO DAILY RF: 0 hydroxyurea 500 mg Capsule 500 mg PO DAILY Qty: 30 RF: 0 hydroxyurea 500 mg Capsule 500 mg PO DAILY Qty: 30 RF: 11 terazosin 2 mg capsule 2 mg PO DAILY RF: 0 Theracran 650 mg capsule 1,300 mg PO DAILY RF: 0 Referrals: Carolann Morales PA-C [Primary Care Provider] - Jake Lomax MD [Physician] -
--- NOTE | 2021-02-11 20:00 | DI.CT.S_ITS ---
PROCEDURE: CT HEAD/BRAIN WO CON INDICATIONS: gant, hypertension TECHNIQUE: Noncontrast 4.5 mm thick angled axial sections acquired from the foramen magnum to the vertex, with coronal and sagittal reformats. For radiation dose reduction, the following was used: automated exposure control, adjustment of mA and/or kV according to patient size. COMPARISON: [facility], CT, CT HEAD/BRAIN WO CON, 08/24/2019, 19:47. FINDINGS: Image quality: Excellent. CSF spaces: Basal cisterns are patent. No extra-axial fluid collections. The ventricles are symmetric in size and shape. Brain: No intracranial bleeds or masses. There is moderate cerebral volume loss for age, with resultant ventricular and sulcal prominence. There are moderate periventricular and deep white matter chronic small vessel ischemic changes. There is intracranial internal carotid artery atherosclerosis. Skull and face: Calvarium and visualized facial bones appear intact, without suspicious lesions. Sinuses: Visualized sinuses and mastoids are clear. IMPRESSION: 1. No acute intracranial abnormalities. 2. Cerebral volume loss and chronic microvascular ischemic changes. Dictated by: Fartun Mckeon M.D. on 02/11/2021 at 20:38 Approved by: Fartun Mckeon M.D. on 02/11/2021 at 20:39
[2021-02-11] MEDS: carvediloL 12.5 MG TABLET 25 MG PO (20:19)
[2021-02-11] MEDS: LOSARTAN 50 MG TABLET PO (20:20)
[2021-02-11 20:38] LABS: Add Manual Diff / Slide Review NO; Basophils Absolute Auto 100 /uL (0-100); Basophils Percent Auto 0.7 % (0-2); Eosinophils Absolute Auto 100 /uL (0-450); Eosinophils Percent Auto 0.9 % (2-4); Hematocrit 37.5 % (36-46); Lymphocytes Absolute Auto 1100 /uL (1100-4500); Lymphocytes Percent Auto 13.3 % (25-40); Mean Corpuscular HGB Conc 34.7 % (30-36); Mean Corpuscular Hemoglobin 37.3 PG (26-34); Mean Corpuscular Volume 107.6 fL (80-100); Monocytes Absolute Auto 500 /uL (0-900); Monocytes Percent Auto 5.6 % (3-14); Neutrophils Absolute Auto 6500 /uL (1500-7000); Neutrophils Percent Auto 79.5 % (50-75); Platelet Count 324 X10^3/uL (150-400); Red Blood Cell Count 3.49 X10^6/uL (4.0-5.2); Red Cell Distribution Width 13.2 % (11.6-14.8); White Blood Cell Count 8.2 X10^3/uL (4.5-11.0)
[2021-02-11 21:13] LABS: Alanine Aminotransferase 25 IU/L (<35); Albumin 4.5 g/dL (3.5-5.0); Albumin Globulin Ratio 1.4 (1.0-2.8); Alkaline Phosphatase 65 U/L (38-126); Aspartate Aminotransferase 45 IU/L (14-36); BUN Creatinine Ratio 31.1 (6-22); Bilirubin Total 0.5 mg/dL (0.2-1.3); Blood Urea Nitrogen 14 mg/dL (7-17); Calcium 9.1 mg/dL (8.4-10.2); Carbon Dioxide 27 mmol/L (22-32); Chloride 90 mmol/L (98-107); Creatine Kinase 172 U/L (30-135); Estimated Glomerular Filt Rate > 60.0 mL/min (>60); Globulin 3.3 g/dL (1.7-4.1); Glucose 101 mg/dL (80-110); HEMOLYSIS 48 (0-50); Lipase 115 U/L (23-300); Potassium 3.5 mmol/L (3.4-5.1); Sodium 126 mmol/L (137-145); Total Protein 7.8 g/dL (6.3-8.2)
[2021-02-11 21:24] LABS: Troponin I < 0.012 ng/mL (0.01-0.034)
[2021-02-11 21:28] LABS: CKMB % Relative Index 1.3 % (1.5-5.0); Creatine Kinase MB 2.15 ng/mL (<2.37)
[2021-02-11] MEDS: SODIUM CHLORIDE 0.9% 1,000 ML 1000 ML IV (21:39)
--- NOTE | 2021-02-15 15:54 | PC.NURSE ---
Late Entry- RN DC'd IV fluids when IV removed prior to discharge at 2200
--- NOTE | 2021-02-19 19:41 | PC.NURSE ---
Late entry: RN discontinued NS prior to removing iv at time of discharge. 500ml infused.
== END 2021-02-11 22:30 | disposition home or self-care (01) ==
PROVIDERS: Emergency Provider Emergency Medicine; Family Provider Physician Assistant; PCP Physician Assistant
DX: I10 Essential (primary) hypertension (principal); E87.1 Hypo-osmolality and hyponatremia; R07.9 Chest pain, unspecified; R51.9 Headache, unspecified
CPT/HCPCS: 36415; 70450; 71045; 80053; 81001; 82550; 82553; 83690; 84484; 85025; 93005; 99284

== ENCOUNTER → 2021-05-02 13:17 | Outpatient (CLI) | payer MEDICARE, OTHER, SELFPAY ==
[2021-05-02 13:24] LABS: RBC Urine None Seen (0-5/HPF)
[2021-05-02 15:35] LABS: Appearance Urine UA SL CLOUDY; Bilirubin Urine UA NEGATIVE (NEGATIVE); Color Urine UA YELLOW; Glucose Urine UA NEGATIVE (Negative); Ketones Urine UA NEGATIVE (NEGATIVE); Leukocyte Esterase Urine UA TRACE (NEGATIVE); Nitrite Urine UA NEGATIVE (Negative); Occult Blood Urine UA NEGATIVE (Negative); Protein Urine UA NEGATIVE (Negative); Urobilinogen Urine UA 0.2 E.U./dL (0.2)
[2021-05-02 15:37] LABS: pH Urine UA 5.5 (4.5-8.0)
[2021-05-02 15:42] LABS: Amorphous Sediment Urine 1+; Bacteria Urine Moderate (10-30); Culture Indicated Urine Specimen Cultured; Mucus Urine 1+ (Negative); Squamous Epithelial Cell Urine 5-10 /HPF (0-5/HPF); WBC Urine 10-30/HPF (0-5/HPF)
== END ==
PROVIDERS: Family Provider Physician Assistant; PCP Physician Assistant; Referring Provider Specialist; Visit Provider Specialist
DX: N39.0 Urinary tract infection, site not specified (principal)
CPT/HCPCS: 81001; 87077; 87086

== ENCOUNTER → 2021-05-28 11:56 | Outpatient (CLI) | payer MEDICARE, OTHER, SELFPAY ==
[2021-05-28 12:54] LABS: COVID19 -Nasal RAPID Negative (Negative)
== END ==
PROVIDERS: Family Provider Physician Assistant; PCP Physician Assistant; Visit Provider Surgery
DX: Z20.822 Contact with and (suspected) exposure to COVID-19 (principal); Z01.812 Encounter for preprocedural laboratory examination
CPT/HCPCS: 87635; C9803

== ENCOUNTER 2021-05-29 14:04 | Day surgery (SDC) | payer MEDICARE, OTHER, SELFPAY ==
[2021-05-27 07:54] VITALS: BMI 24.1
[2021-05-29] VITALS (8 sets, daily range): BP systolic 142–187; BP diastolic 61–82; PULSE 55–61; RESP 14–16; TEMP 36–36.6; O2SAT 96–99; BMI 24.1
--- NOTE | 2021-05-29 | PATH_ITS ---
[facility] Accession Number: [id number] . 01 Material submitted: . PART A: lymph node - RIGHT AXILLARY LYMPH NODE PART B: lymph node - RIGHT AXILLARY LYMPH NODE . 01 Clinical history: . CLINICAL: AXILLARY LYMPHADENOPATHY . 01 Diagnosis: A, B. Right Axillary Lymph Node, Excision: Benign lymph node with features of dermatopathic lymphadenopathy, see microscopic description. Negative for granulomatous inflammation. Negative for hematolymphoid malignancy or metastatic carcinoma. COUNTS INCLUDE 234 BEDS AT THE [facility] 06/05/2021 1742 Local . 01 Electronically signed: . Esther Anna MD, Pathologist NPI- [id number] . 01 Gross description: . A. Received in formalin, labeled right axillary lymph node consists of a 1.5 x 1.4 x 0.6 cm hardin lymph node. The lymph node is bisected and entirely submitted in cassette A1. B. Received in B fixative, labeled right axillary lymph node consists of a 2.0 x 1.0 x 0.6 cm hardin lymph node, which is bisected and entirely submitted in cassette B1. . Also received are one fresh slide and one slide in reagent alcohol 95% labeled right axillary lymph nodes. The slides are forwarded to histology. (EA:[id number]) /MRV 05/30/2021 1105 Local . 01 Microscopic: . Microscopic examination of the axillary lymph node reveals essentially preserved architecture with focal paracortical expansion by pale nodular areas composed of histiocytes and Langerhans cells, admixed with smaller lymphocytes and plasma cells. The sinuses are also open and dilated with histiocytes, lymphocytes and plasma cells. A few atrophic appearing follicles with reactive germinal centers are present. Large atypical lymphocytes or Hodgkin cells are not identified. There are also areas where the lymph node is replaced by adipose tissue. . To better evaluate the lymphocyte composition and rule out the possibility of involvement by lymphoproliferative disorder or epithelial malignancy, a panel of immunostains is performed with the following results: . CD3 - T-lymphocytes positive. CD5 - T-lymphocytes positive (negative for aberrant coexpression on the B-lymphocytes). CD20 - B-lymphocytes positive. CD21 - Follicular dendritic cells positive. BCL2 - Germinal centers of the follicles negative. BCL6 - Highlights a few atrophic follicles. Cyclin D1 - Negative for aberrant coexpression on the B-lymphocytes. Ki-67 - Overall low, labeling the germinal centers of the follicles. [place] Light Chain Immunostain - Subset of plasma cells positive, polyclonal. Lambda Light Chain Immunostain - Subset of plasma cells positive, polyclonal. VEL (panepithelial marker) - Negative. This result rules out the possibility of metastatic carcinoma. CD68 - Highlights the presence of many histiocytes. S100 - Highlights the presence of interdigitating dendritic cells and Langerhans cells. CD1a - Langerhans cells positive. . In summary, immunohistochemistry along with the morphology, supports benign lymph node with reactive changes and features that support dermatopathic lymphadenopathy. In addition, concurrent flow cytometry did not identify an abnormal B- or T-cell population (See complete report #[id number], for details). . * This test was developed and its performance characteristics determined by [facility]. It has not been cleared or approved by the U.S. Food and Drug Administration. The FDA has determined that such clearance or approval is not necessary. This test is used for clinical purposes. It should not be regarded as investigational or for research. . 01 Pathologist provided ICD-10: R59.0 . 01 CPT . 613742, 857357, L22268, C38893 Performed at: 01 [facility] [address] [place] [address], [place], [place] [id number] MD Dilan Zhou MD Phone: [phone]
[2021-05-29] MEDS: LACTATED RINGERS 1,000 ML 42 ML IV (14:46)
[2021-05-29] MEDS: ACETAMINOPHEN 325 MG TABLET 650 MG PO (14:48)
--- NOTE | 2021-05-29 16:17 | PM.PREOP ---
Pre-operative Note Interval Note History & Physical reviewed/Exam performed by Physician: Yes Changes to H&P: No
[2021-05-29] MEDS: CEFAZOLIN 1 GM VIAL 2 GM IV (16:46)
[2021-05-29] MEDS: BUPIVACAINE 0.25% (PF) VIAL 30 ML INJ (16:58)
--- NOTE | 2021-05-29 17:00 | SUR.OPER ---
Supine on padded OR bed, head on pillow, arms secured on padded arm boards at <90 degrees abduction, legs uncrossed, pillow under knees, safety belt at thigh, tape over blanket over lower legs.
--- NOTE | 2021-05-30 12:52 | PM.OP.1 ---
Operative Date/Time/Diagnoses Date of procedure: 05/30/21 Time of procedure: 12:52 Pre-op diagnosis: Axillary lymphadenopathy Post-op diagnosis: same Procedure & Clinicians Procedure: Excisional biopsy right axillary lymph nodes Same procedure as scheduled: Yes Indications: Right axillary lymphadenopathy Surgeon: Ariel Morrison Anesthesia Type: General Operative Notes Findings: 2 cm axillary lymph node Specimen(s): other (Axillary lymph node) Estimated Blood Loss (mL): 20 Procedure in detail: Patient was brought to the operating room placed supine on the table. General anesthesia was induced she was intubated with an LMA. Bilateral lower extremity compression devices were applied. She received Ancef. She was prepped and draped sterile fashion. Time-out performed. Incision was made in the hair-bearing region of the axilla. The skin was divided with a knife the subcutaneous tissue was divided with electrocautery very. Within the right axilla there was a palpable lymph node of approximately 2 cm. The axillary tissue was carefully dissected with blunt dissection. A lymph node was identified. The lymph node was ligated with is silk suture. It was then transected and passed off the field as specimen. The subcutaneous tissue was reapproximated with Vicryl skin closed with Monocryl in a running fashion followed by Dermabond and Steri-Strips. Patient tolerated the procedure well. Complications: none Post-operative Condition: stable Disposition: same day surgery
== END 2021-05-29 17:58 | disposition home or self-care (01) ==
PROVIDERS: Family Provider Physician Assistant; PCP Physician Assistant; Referring Provider Surgery; Visit Provider Surgery
PROC: (CPT 38500; principal; 2021-05-29 15:45)
DX: R59.0 Localized enlarged lymph nodes (principal); D47.3 Essential (hemorrhagic) thrombocythemia; I10 Essential (primary) hypertension; E78.5 Hyperlipidemia, unspecified; I69.398 Other sequelae of cerebral infarction; F31.9 Bipolar disorder, unspecified; F41.9 Anxiety disorder, unspecified; Z85.828 Personal history of other malignant neoplasm of skin
CPT/HCPCS: 38500; J0690; J1100; J2405; J2704

== ENCOUNTER → 2021-08-05 13:17 | Outpatient (CLI) | payer MEDICARE, OTHER, SELFPAY ==
[2021-08-05 14:56] LABS: COVID19 -Nasal RAPID Negative (Negative)
== END ==
PROVIDERS: Family Provider Physician Assistant; PCP Physician Assistant; Referring Provider Physician Assistant; Visit Provider Physician Assistant
DX: Z20.822 Contact with and (suspected) exposure to COVID-19 (principal)
CPT/HCPCS: 87635; C9803

== ENCOUNTER → 2021-10-08 11:45 | Outpatient (CLI) | payer MEDICARE, OTHER, SELFPAY ==
[2021-10-08 12:49] LABS: COVID19 -Nasal RAPID Negative (Negative)
== END ==
PROVIDERS: Family Provider Physician Assistant; PCP Physician Assistant; Visit Provider Nurse Practitioner Critical Care Medicine
DX: Z20.822 Contact with and (suspected) exposure to COVID-19 (principal)
CPT/HCPCS: 87635

== ENCOUNTER → 2021-10-30 14:28 | Outpatient (CLI) | payer MEDICARE, OTHER, SELFPAY ==
[2021-10-30 15:49] LABS: BUN Creatinine Ratio 23.1 (6-22); Blood Urea Nitrogen 15 mg/dL (7-17); Calcium 8.9 mg/dL (8.4-10.2); Carbon Dioxide 30 mmol/L (22-32); Chloride 91 mmol/L (98-107); Estimated Glomerular Filt Rate > 60.0 mL/min (>60); Glucose 108 mg/dL (80-110); HEMOLYSIS < 15 (0-50); Potassium 3.5 mmol/L (3.4-5.1); Sodium 125 mmol/L (137-145)
[2021-11-03 15:36] LABS: Metanephrine,Plasma 12.6 pg/mL (0.0-88.0)
[2021-11-05 13:02] LABS: Renin Activity < 0.167 ng/mL/hr (0.167-5.380)
== END ==
PROVIDERS: Family Provider Physician Assistant; PCP Student in an Organized Health Care Education/Training Program; Referring Provider Internal Medicine Cardiovascular Disease; Visit Provider Internal Medicine Cardiovascular Disease
DX: I10 Essential (primary) hypertension (principal); D47.3 Essential (hemorrhagic) thrombocythemia
CPT/HCPCS: 36415; 80048; 82088; 83835; 84244

== ENCOUNTER → 2021-11-12 11:48 | Outpatient (CLI) | payer MEDICARE, OTHER, SELFPAY ==
[2021-11-12 14:35] LABS: BUN Creatinine Ratio 19.4 (6-22); Blood Urea Nitrogen 14 mg/dL (7-17); Calcium 9.1 mg/dL (8.4-10.2); Carbon Dioxide 27 mmol/L (22-32); Chloride 98 mmol/L (98-107); Estimated Glomerular Filt Rate > 60.0 mL/min (>60); Glucose 102 mg/dL (80-110); Sodium 132 mmol/L (137-145)
[2021-11-12 14:55] LABS: HEMOLYSIS 77 (0-50); Potassium 4.9 mmol/L (3.4-5.1)
[2021-11-13 17:24] LABS: Osmolality, Serum 278 mOsmol/kg (280-301)
== END ==
PROVIDERS: Family Provider Physician Assistant; PCP Student in an Organized Health Care Education/Training Program; Referring Provider Internal Medicine Cardiovascular Disease; Visit Provider Internal Medicine Cardiovascular Disease
DX: I10 Essential (primary) hypertension (principal); E87.1 Hypo-osmolality and hyponatremia
CPT/HCPCS: 36415; 80048; 83930

== ENCOUNTER → 2022-01-27 14:32 | Outpatient (CLI) | payer MEDICARE, OTHER, SELFPAY ==
--- NOTE | 2022-01-27 14:37 | DI.MG.S_ITS ---
BILATERAL DIGITAL SCREENING MAMMOGRAM 3D/2D WITH CAD: 01/27/2022 CLINICAL: Routine screening. Family history of breast cancer. Comparison is made to exams dated: 01/16/2021 mammogram and 03/07/2011 mammogram - [facility]. There are scattered fibroglandular elements in both breasts. Current study was also evaluated with a Computer Aided Detection (CAD) system. No significant masses, calcifications, or other findings are seen in either breast. There has been no significant interval change. IMPRESSION: NEGATIVE There is no mammographic evidence of malignancy. A 1 year screening mammogram is recommended. This exam was interpreted at Station ID: [id number]. NOTE: For mammograms, a report in lay terms will be sent to the patient. Approximately 15% of breast malignancies will not be visualized mammographically. In the management of a palpable breast mass, a negative mammogram must not discourage biopsy of a clinically suspicious lesion. Electronically Signed By: Dianne jett/jesus:01/28/2022 10:59:29 copy to: Carolann Morales letter sent: Normal Exam ACR BI-RADS Category 1: Negative [id number]
== END ==
PROVIDERS: Family Provider Physician Assistant; PCP Student in an Organized Health Care Education/Training Program; Referring Provider Internal Medicine Hematology & Oncology; Visit Provider Internal Medicine Hematology & Oncology
DX: Z12.31 Encounter for screening mammogram for malignant neoplasm of breast (principal); Z80.3 Family history of malignant neoplasm of breast
CPT/HCPCS: 77063; 77067

== ENCOUNTER → 2022-03-20 15:34 | Outpatient (CLI) | payer MEDICARE, OTHER, SELFPAY | PROVIDERS: Family Provider Physician Assistant; PCP Student in an Organized Health Care Education/Training Program; Visit Provider Physician Assistant | DX: R30.0 Dysuria (principal) | CPT/HCPCS: 87086 ==

== ENCOUNTER → 2022-10-21 11:53 | Outpatient (CLI) | payer MEDICARE, OTHER, SELFPAY ==
[2022-10-21 12:57] LABS: Add Manual Diff / Slide Review NO; Basophils Absolute Auto 0 /uL (0-100); Basophils Percent Auto 0.9 % (0-2); Eosinophils Absolute Auto 100 /uL (0-450); Eosinophils Percent Auto 1.2 % (2-4); Hematocrit 34.7 % (36-46); Hemoglobin 11.8 g/dL (12.0-16.0); Lymphocytes Absolute Auto 500 /uL (1100-4500); Lymphocytes Percent Auto 12.3 % (25-40); Mean Corpuscular HGB Conc 33.9 % (30-36); Mean Corpuscular Hemoglobin 37.4 PG (26-34); Mean Corpuscular Volume 110.3 fL (80-100); Monocytes Absolute Auto 400 /uL (0-900); Monocytes Percent Auto 9.6 % (3-14); Neutrophils Absolute Auto 3300 /uL (1500-7000); Platelet Count 274 X10^3/uL (150-400); Red Blood Cell Count 3.15 X10^6/uL (4.0-5.2); Red Cell Distribution Width 13.3 % (11.6-14.8); White Blood Cell Count 4.4 X10^3/uL (4.5-11.0)
[2022-10-21 13:05] LABS: Alanine Aminotransferase 21 IU/L (<35); Albumin 4.1 g/dL (3.5-5.0); Albumin Globulin Ratio 1.3 (1.0-2.8); Alkaline Phosphatase 57 U/L (38-126); Aspartate Aminotransferase 31 IU/L (14-36); BUN Creatinine Ratio 31.1 (6-22); Bilirubin Total 0.3 mg/dL (0.2-1.3); Blood Urea Nitrogen 19 mg/dL (7-17); Calcium 8.5 mg/dL (8.4-10.2); Carbon Dioxide 27 mmol/L (22-32); Chloride 100 mmol/L (98-107); Cholesterol 155 mg/dL (140-199); Estimated Glomerular Filt Rate > 60 mL/min (>60); Globulin 3.1 g/dL (1.7-4.1); Glucose 78 mg/dL (80-110); HDL Cholesterol 53 mg/dL (40-60); HEMOLYSIS < 15 (0-50); LDL Cholesterol Calculated 79 mg/dL (<100); Lactate Dehydrogenase 225 U/L (120-246); Sodium 135 mmol/L (137-145); Total Protein 7.2 g/dL (6.3-8.2); Triglycerides 114 mg/dL (35-150)
[2022-10-21 13:44] LABS: Anisocytosis 1+
[2022-10-22 14:25] LABS: Osmolality, Serum 287 mOsmol/kg (280-301)
[2022-11-04 19:33] LABS: 1,25-Dihydroxy, Vitamin D-2 <10 pg/mL (.)
== END ==
PROVIDERS: Internal Medicine Hematology & Oncology; Family Provider Physician Assistant; PCP Student in an Organized Health Care Education/Training Program; Referring Provider Nurse Practitioner; Visit Provider Nurse Practitioner
DX: I10 Essential (primary) hypertension (principal); E55.9 Vitamin D deficiency, unspecified; E22.2 Syndrome of inappropriate secretion of antidiuretic hormone; E78.5 Hyperlipidemia, unspecified; D47.3 Essential (hemorrhagic) thrombocythemia
CPT/HCPCS: 36415; 80053; 80061; 82652; 83615; 83930; 85025

== ENCOUNTER → 2022-11-13 13:56 | Outpatient (CLI) | payer MEDICARE, OTHER, SELFPAY | PROVIDERS: PCP Student in an Organized Health Care Education/Training Program; Visit Provider Registered Nurse | DX: R30.0 Dysuria (principal) | CPT/HCPCS: 87077; 87086; 87186 ==

== ENCOUNTER → 2023-04-25 11:43 | Outpatient (CLI) | payer MEDICARE, OTHER, SELFPAY | PROVIDERS: PCP Student in an Organized Health Care Education/Training Program; Visit Provider Physician Assistant | DX: R30.0 Dysuria (principal) | CPT/HCPCS: 87077; 87086; 87186 ==

== ENCOUNTER → 2023-06-27 16:20 | Outpatient (CLI) | payer MEDICARE, OTHER, SELFPAY | PROVIDERS: PCP Student in an Organized Health Care Education/Training Program; Visit Provider Nurse Practitioner Family | DX: R30.0 Dysuria (principal) | CPT/HCPCS: 87077; 87086; 87186 ==

== ENCOUNTER → 2023-09-22 12:49 | Outpatient (CLI) | payer MEDICARE, OTHER, SELFPAY | PROVIDERS: PCP Student in an Organized Health Care Education/Training Program; Visit Provider Physician Assistant | DX: R30.0 Dysuria (principal) | CPT/HCPCS: 87077; 87086; 87186 ==

== ENCOUNTER → 2023-10-26 09:15 | Outpatient (CLI) | payer MEDICARE, OTHER, SELFPAY ==
--- NOTE | 2023-10-26 09:18 | DI.ECHO.S_ITS ---
[facility] +---------+ : : [address] : : : : [place], : : : : [place] [address] : : : : Phone: [phone]---------[phone] + + Formerly [facility], [id number] Echocardiogram Report + + :Name: RAVIN MCKEON Study Date: 10/26/2023 Height: 62 in : :[facility] ReadingLocation: Weight: 132 lb : : Gender: Female BSA: 1.6 m2 : :: 1940 Age: 83 yrs BP: 149/73 mmHg: :Reason For Study: MURMUR : :Ordering Physician: LOUANN, : :MIAH Performed By: Levi Hines : :Referring: MIAH LEW : + + Interpretation Summary The left ventricle is normal in size and wall thickness. The left ventricular ejection fraction is normal. The ejection fraction is estimated to be 60-65%. There has been no significant change in LVEF since the previous exam. Diastolic parameters suggest a pseudonormalization pattern, consistent with probable elevated filling pressures. The right ventricle is normal in size and function. The interatrial septum bows toward right atrium consistent with elevated left atrial pressure. Doppler evidence to suggest L-R intra-atrial shunt. This is unchanged compared to the previous study. There is mild mitral regurgitation. Compared to the prior echo study, there has been a decrease in the severity of mitral regurgitation. The right ventricular systolic pressure is estimated to be at least 26 mmHg based on an estimated right atrial pressure of 3 mm Hg. Procedure: A two-dimensional transthoracic echocardiogram with color flow and Doppler was performed. The study quality was technically adequate. Comparison is made with the echocardiogram of 02/13/2020. The patient was in normal sinus rhythm during the exam. The heart rate ranged between 60-64 bpm during the study. Left Ventricle: The left ventricle is normal in size and wall thickness. There is no thrombus. The ejection fraction is estimated to be 60-65%. The left ventricular ejection fraction is normal. There has been no significant change since the previous exam. There are no focal wall motion abnormalities. Diastolic parameters suggest a pseudonormalization pattern, consistent with probable elevated filling pressures. Right Ventricle: The right ventricle is normal in size and function. The right ventricular systolic function is normal. Atria: The left atrium is severely dilated. There has been no significant change since the previous study. Right atrial size is normal. The interatrial septum bows toward right atrium consistent with elevated left atrial pressure. Doppler evidence to suggest L-R intra-atrial shunt. This is unchanged compared to the previous study. Mitral Valve: There is mild mitral annular calcification. The mitral papillary muscle appears thickened and/or calcified. The mitral valve chordae are thickened and/or calcified. There is no mitral valve stenosis. There is mild mitral regurgitation. There are multiple regurgitant jets present. Compared to the prior echo study, there has been a decrease in the severity of mitral regurgitation. Aortic Valve: The aortic valve is trileaflet. The aortic valve is mildly calcified. There is no aortic valve stenosis. There is trace aortic regurgitation. Tricuspid Valve: The tricuspid valve is normal. There is no tricuspid stenosis. The right ventricular systolic pressure is estimated to be at least 26 mmHg based on an estimated right atrial pressure of 3 mm Hg. There is trace tricuspid regurgitation. Pulmonic Valve: The pulmonic valve is not well visualized. There is no pulmonic valvular stenosis. There is a trace or physiologic amount of pulmonic regurgitation. Great Vessels: The aortic root is normal size. The dimensions of the ascending aorta are normal. The IVC is of normal diameter and collapses greater than 50% with a sniff. This suggests a low right atrial pressure of 3 mm Hg. Pericardium/ Pleura There is no pericardial effusion. There is no pleural effusion. MMode/2D Measurements & Calculations LVIDd: 3.9 cm LVOT diam: 2.0 cm LVIDs: 2.7 cm Ao root diam: 2.8 cm IVSd: 1.1 cm asc Aorta Diam: 2.7 cm LVPWd: 0.99 cm LV jorgensen. diameter/BSA (cm/m^2): 2.5 LV sys. diameter/BSA (cm/m^2): 1.7 FS: 31.6 % LA A2 area: 26.2 cm2 RA long axis: 5.2 cm LA A4 area: 30.0 cm2 RA area: 12.5 cm2 LA length (vol): 6.3 cm RA vol: 25.5 ml LA vol: 106.8 ml RA : 15.9 ml/m2 LA vol index: 66.7 ml/m2 RVD1 (basal): 4.2 cm IVC diam: 2.0 cm RVD2 (mid): 3.6 cm TAPSE: 2.4 cm Doppler Measurements & Calculations Ao V2 max: 179.0 cm/sec LVOT Max Miquel: 117.7 cm/sec Ao V2 mean: 128.4 cm/sec LV V1 max P.5 mmHg Ao V2 VTI: 44.0 cm LV V1 VTI: 31.5 cm Ao max P.8 mmHg Ao mean P.3 mmHg AMAURY(I,D): 2.2 cm2 AI P1/2t: 565.0 msec AMAURY(V,D): 2.0 cm2 AI dec slope: 216.0 cm/sec2 AMAURY indexed to BSA (cm^2/m^2): 1.4 sev ratio: 0.72 MV E max miquel: 109.0 cm/sec MV dec time: 0.16 sec MV A max miquel: 81.2 cm/sec MV E/A: 1.3 Med Peak E' Miquel: 4.6 cm/sec E/E' med: 23.6 Lat Peak E' Miquel: 7.1 cm/sec E/E' lat: 15.3 E/e' average: 19.4 TR max miquel: 239.6 cm/sec PA V2 max: 90.0 cm/sec TR max P.0 mmHg PA V2 mean: 68.7 cm/sec PA mean P.0 mmHg PA pr(Accel): 46.5 mmHg SV(LVOT): 95.8 ml Reading Physician:04:29 PM
[2023-10-26 15:11] LABS: Hematocrit 35.6 % (36-46); Hemoglobin 12.2 g/dL (12.0-16.0); Mean Corpuscular HGB Conc 34.1 % (30-36); Mean Corpuscular Hemoglobin 37.9 PG (26-34); Platelet Count 266 X10^3/uL (150-400); Red Blood Cell Count 3.21 X10^6/uL (4.0-5.2); Red Cell Distribution Width 13.4 % (11.6-14.8); White Blood Cell Count 5.3 X10^3/uL (4.5-11.0)
[2023-10-26 15:37] LABS: Alanine Aminotransferase 19 IU/L (<35); Albumin 3.8 g/dL (3.5-5.0); Albumin Globulin Ratio 1.3 (1.0-2.8); Alkaline Phosphatase 57 U/L (38-126); Aspartate Aminotransferase 29 IU/L (14-36); BUN Creatinine Ratio 27.7 (6-22); Bilirubin Total 0.5 mg/dL (0.2-1.3); Blood Urea Nitrogen 18 mg/dL (7-17); Carbon Dioxide 25 mmol/L (22-32); Chloride 101 mmol/L (98-107); Estimated Glomerular Filt Rate > 60 mL/min (>60); Globulin 2.9 g/dL (1.7-4.1); Glucose 94 mg/dL (80-110); HEMOLYSIS < 15 (0-50); Potassium 4.4 mmol/L (3.4-5.1); Sodium 134 mmol/L (137-145); Total Protein 6.7 g/dL (6.3-8.2)
== END ==
PROVIDERS: PCP Student in an Organized Health Care Education/Training Program; Referring Provider Internal Medicine Cardiovascular Disease; Visit Provider Internal Medicine Cardiovascular Disease
DX: I34.81 Nonrheumatic mitral (valve) annulus calcification (principal); I34.0 Nonrheumatic mitral (valve) insufficiency; R01.1 Cardiac murmur, unspecified; I10 Essential (primary) hypertension
CPT/HCPCS: 36415; 80053; 85027; 93306

== ENCOUNTER → 2024-06-23 13:55 | Outpatient (CLI) | payer MEDICARE, OTHER, SELFPAY | PROVIDERS: PCP Student in an Organized Health Care Education/Training Program; Visit Provider Physician Assistant Medical | DX: R30.0 Dysuria (principal) | CPT/HCPCS: 87077; 87086 ==

== ENCOUNTER → 2024-08-03 11:17 | Outpatient (CLI) | payer MEDICARE, OTHER, SELFPAY ==
--- NOTE | 2024-08-03 11:18 | DI.CT.S_ITS ---
PROCEDURE: CT HEAD/BRAIN WO CON INDICATIONS: headache TECHNIQUE: Noncontrast 4.5 mm thick angled axial sections acquired from the foramen magnum to the vertex, with coronal and sagittal reformats. For radiation dose reduction, the following was used: automated exposure control, adjustment of mA and/or kV according to patient size. COMPARISON: [facility], CT, CT HEAD/BRAIN WO CON, 02/11/2021, 20:07. FINDINGS: Image quality: Diagnostic. CSF spaces: Basal cisterns are patent. No extra-axial fluid collections. The ventricles are symmetric in size and shape. Brain: No intracranial bleeds or masses. There is cerebral volume loss for age, with resultant ventricular and sulcal prominence. There are periventricular and deep white matter chronic small vessel ischemic changes. There is intracranial internal carotid artery atherosclerosis. Skull and face: Calvarium and visualized facial bones appear intact, without suspicious lesions. Sinuses: Visualized sinuses and mastoids are clear. IMPRESSION: No acute intracranial pathology. Dictated by: Hima Lopez M.D. on 08/03/2024 at 12:52 Approved by: Hima Lopez M.D. on 08/03/2024 at 12:55
== END ==
PROVIDERS: PCP Student in an Organized Health Care Education/Training Program; Referring Provider Nurse Practitioner; Visit Provider Nurse Practitioner
DX: I65.29 Occlusion and stenosis of unspecified carotid artery (principal); R51.9 Headache, unspecified
CPT/HCPCS: 70450

== ENCOUNTER → 2024-08-26 16:54 | Outpatient (CLI) | payer MEDICARE, OTHER, SELFPAY | PROVIDERS: PCP Student in an Organized Health Care Education/Training Program; Visit Provider Student in an Organized Health Care Education/Training Program | DX: R30.0 Dysuria (principal) | CPT/HCPCS: 87086 ==

== ENCOUNTER 2024-08-26 17:36 | Emergency (ER) | payer MEDICARE, OTHER, SELFPAY ==
[2024-08-26 17:39] VITALS: BP 208/100; PULSE 62; RESP 14; O2SAT 97; BMI 23.2
--- NOTE | 2024-08-26 17:42 | DI.RAD.S_ITS ---
PROCEDURE: XR CHEST 1V INDICATIONS: chest pain TECHNIQUE: One view of the chest was acquired. COMPARISON: [facility], CR, XR CHEST 1V, 02/11/2021, 18:46. FINDINGS: Surgical changes and devices: None. Lungs and pleura: Lungs are clear. No pleural effusions or pneumothorax. Mediastinum: Mediastinal contours appear normal. Heart size is normal. Bones and chest wall: No suspicious bony lesions. Overlying soft tissues appear unremarkable. IMPRESSION: No acute cardiopulmonary abnormality is seen. Approved by: Kimbrely Mckinney M.D.,Ph.D. on 08/26/2024 at 18:15
--- NOTE | 2024-08-26 17:45 | EKG_ITS ---
[address] [address] Test Date: 2024-08-26 Pat Name: Laquita Pena Department: Room: Gender: Female [employer] Work[employer]: SADIA : 1940 Requested By: Order Number: [id number] Reading MD: Miki Felipe Measurements Intervals [place] Rate: 59 P: 83 MA: 198 QRS: 45 QRSD: 80 T: 71 QT: 420 QTc: 415 Interpretive Statements Sinus bradycardia Electronically Signed On 08-26-2024 18:53:47 PST by Miki Felipe
[2024-08-26 18:09] LABS: Add Manual Diff / Slide Review NO; Basophils Absolute Auto 0 /uL (0-100); Basophils Percent Auto 0.8 % (0-2); Eosinophils Absolute Auto 100 /uL (0-450); Hematocrit 39.6 % (36-46); Hemoglobin 13.2 g/dL (12.0-16.0); Lymphocytes Absolute Auto 700 /uL (1100-4500); Lymphocytes Percent Auto 11.4 % (25-40); Mean Corpuscular HGB Conc 33.3 % (30-36); Mean Corpuscular Hemoglobin 37.7 PG (26-34); Mean Corpuscular Volume 113.4 fL (80-100); Monocytes Absolute Auto 400 /uL (0-900); Monocytes Percent Auto 7.3 % (3-14); Neutrophils Absolute Auto 4700 /uL (1500-7000); Neutrophils Percent Auto 79.5 % (50-75); Platelet Count 322 X10^3/uL (150-400); Red Blood Cell Count 3.49 X10^6/uL (4.0-5.2); Red Cell Distribution Width 13.1 % (11.6-14.8)
[2024-08-26 18:27] LABS: Alanine Aminotransferase 25 IU/L (<35); Albumin 4.5 g/dL (3.5-5.0); Albumin Globulin Ratio 1.3 (1.0-2.8); Alkaline Phosphatase 61 U/L (38-126); Aspartate Aminotransferase 39 IU/L (14-36); BUN Creatinine Ratio 30.8 (6-22); Bilirubin Total 0.6 mg/dL (0.2-1.3); Blood Urea Nitrogen 20 mg/dL (7-17); Calcium 9.3 mg/dL (8.4-10.2); Carbon Dioxide 28 mmol/L (22-32); Chloride 100 mmol/L (98-107); Creatine Kinase 112 U/L (30-135); Estimated Glomerular Filt Rate > 60 mL/min (>60); Globulin 3.5 g/dL (1.7-4.1); Glucose 103 mg/dL (80-110); HEMOLYSIS < 15 (0-50); Lipase 104 U/L (23-300); Potassium 3.9 mmol/L (3.4-5.1); Sodium 132 mmol/L (137-145)
--- NOTE | 2024-08-26 18:34 | PC.NURSE ---
Addendum entered by Funmilayo Juárez R.N. 08/26/24 18:37: Pt denies seeing swelling in ankles or other parts of body. Original Note: Pt reports having abd cramping so she went to [facility] and thought she had a UTI. [facility] stated she did not have a UTI but did note she had high blood pressure. Pt states she was having chest tightness but is unable to relay if this chest tightness was before, during, or after finding out her BP was elevated. Pt states she is compliant w/ bp medicine. Pt denies N/V/D. Pt denies chest pain, back pain, or shortness of breath at the moment. Pt's visitor notes she goes through spells of abd pain and gas. Pt denies blood in bowel movement. Pt states bowel movements do not make pain better or worse. Respirations regular and unlabored. Breath sounds clear and equal, bilaterally (anteriorly and posteriorly).
[2024-08-26 18:38] LABS: NT-proBNP (BNP-Adult 18+) 466 pg/mL (<450); Troponin I < 0.012 ng/mL (0.01-0.034)
--- NOTE | 2024-08-26 18:46 | ED_ITS ---
HPI - Chest Pain General Chief Complaint: Chest Pain Stated Complaint: abd px, chest pressure Time Seen by Provider: 08/26/24 17:56 Mode of arrival: Wheelchair History of Present Illness HPI narrative: 83-year-old female with history of hypertension presents from the walk-in clinic. Patient states that earlier today she felt mild suprapubic cramping and was concerned that she may be developing a UTI. She lives on [facility] and did not think she would be able to wait over the weekend. She checked into the walk-in clinic, but apparently she had elevated blood pressures when checking in. Patient states that she had a light chest pressure when told she had elevated blood pressure reading. She was referred to the ED for this complaint. Opon my evaluation in the ED patient states that she feels totally fine. She denies chest pain, abdominal pain, other complaints. She states her primary reason for coming to the ED was to check for a UTI. Related Data Home Medications Medication Instructions Recorded Confirmed aspirin 81 mg chewable tablet 81 mg PO DAILY 11/22/18 08/26/24 carvedilol 25 mg tablet 12.5 mg PO BID 11/22/18 08/26/24 cranberry extract 650 mg capsule 1,300 mg PO DAILY 01/22/21 08/26/24 (Theracran) simvastatin 10 mg tablet 10 mg PO ONCE PM 06/23/24 08/26/24 spironolactone 25 mg tablet mg PO 06/23/24 08/26/24 losartan 25 mg tablet 25 mg PO DAILY 08/26/24 08/26/24 Previous Rx's Medication Instructions Recorded estradiol 0.01% (0.1 mg/gram) 1 g vaginal 2XW #42.5 grams 09/04/21 vaginal cream hydroxyurea 500 mg capsule 500 mg PO DAILY #90 caps 10/27/22 Allergies Allergy/AdvReac Type Severity Reaction Status Date / Time lisinopril Allergy Mild Verified 08/26/24 17:39 nitrofurantoin Allergy Mild Rash Verified 08/26/24 17:39 Patient History Medical History Lower urinary tract symptoms (LUTS) History of UTI Postmenopausal atrophic vaginitis Skin cancer Chronic UTI CVA (cerebral vascular accident) Urinary calculi UTI (urinary tract infection) Bilateral cataracts H/O Mohs micrographic surgery for skin cancer Anxiety and depression Osteopenia Hyperlipidemia Essential (primary) hypertension Surgical History 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 hip replacement, left S/P dilation and curettage Family History Mother Bipolar depression Father Pneumonia Social History household members: friend(s) Smoking Status: Never smoker alcohol intake: current substance use type: does not use Smoking Status: Never smoker alcohol intake frequency: a few times a month Exam Initial Vital Signs Initial Vital Signs: Vital Signs Pulse Rate 62 08/26/24 17:39 Respiratory Rate 14 08/26/24 17:39 Blood Pressure 208/100 H 08/26/24 17:39 Pulse Oximetry 97 08/26/24 17:39 Oxygen Delivery Method Room Air 08/26/24 17:39 Const: Awake, alert, no acute distress, nontoxic appearing Cardiac: regular rate, regular rhythm RESP: unlabored, clear bilaterally, no wheezing GI: Soft, nontender, nondistended, no rebound, no guarding Skin: Warm, Dry, intact, no rashes Neuro: AO x3, CN II-XII grossly intact, moves all extremities Course Orders Ordered: ED Orders 08/26/24 17:42 XR chest 1V Stat EKG-12 Lead Stat 08/26/24 17:59 Complete Blood Count AUTO DIFF Stat Comprehensive Metabolic Panel Stat Lipase Stat Magnesium Stat NT-proBNP (BNP-Adult 18+) Stat PTT Partial Thromboplastin Calin Stat Prothrombin Time INR Stat Troponin & CK Cardiac Panel Stat Discontinued Medications Aspirin (Aspirin 81 Mg Chew Tab) 324 mg PO NOW ONE Stop: 08/26/24 17:43 Last Admin: 08/26/24 18:53 Dose: Not Given Documented By: KW Vital Signs Vital signs: Vital Signs - 8 hr 08/26/24 17:39 08/26/24 18:58 Pulse Rate 62 65 Respiratory Rate 14 19 Blood Pressure 208/100 H 187/87 H Pulse Oximetry 97 100 Oxygen Delivery Method Room Air MDM - Chest Pain Lab Data 08/26/24 17:59 08/26/24 17:59 Labs: Lab Results 08/26/24 Range/Units 17:59 WBC 6.0 (4.5-11.0) X10^3/uL RBC 3.49 L (4.0-5.2) X10^6/uL Hgb 13.2 (12.0-16.0) g/dL Hct 39.6 (36-46) % MCV 113.4 H (80-100) fL MCH 37.7 H (26-34) PG MCHC 33.3 (30-36) % RDW 13.1 (11.6-14.8) % Plt Count 322 (150-400) X10^3/uL Neut % (Auto) 79.5 H (50-75) % Lymph % (Auto) 11.4 L (25-40) % Bailey % (Auto) 7.3 (3-14) % Eos % (Auto) 1.0 L (2-4) % Baso % (Auto) 0.8 (0-2) % Neut # (Auto) 4700 (6872-0877) /uL Lymph # (Auto) 700 L (6626-9940) /uL Bailey # (Auto) 400 (0-900) /uL Eos # (Auto) 100 (0-450) /uL Baso # (Auto) 0 (0-100) /uL Nucleated RBCs Cancelled Hypersegmented Neuts Cancelled Hypogranular Neuts Cancelled Reactive Lymphocytes Cancelled Smudge Cells Cancelled Other Cell Type Cancelled Toxic Granulation Cancelled Toxic Vacuolation Cancelled Dohle Bodies Cancelled Bibi Rods Cancelled WBC Morphology Comment Cancelled Platelet Estimate Cancelled Clumped Platelets Cancelled Plt Morphology Comment Cancelled RBC Morphology Cancelled Dimorphic RBCs Cancelled Polychromasia Cancelled Hypochromasia Cancelled Poikilocytosis Cancelled Basophilic Stippling Cancelled Anisocytosis Cancelled Microcytosis Cancelled Macrocytosis Cancelled Spherocytes Cancelled Pappenheimer Bodies Cancelled Sickle Cells Cancelled Target Cells Cancelled Tear Drop Cells Cancelled Ovalocytes Cancelled Stomatocytes Cancelled Helmet Cells Cancelled [place] Bodies Cancelled [place] Rings Cancelled [place] Cells Cancelled Acanthocytes (Spur) Cancelled Rouleaux Cancelled Schistocytes Cancelled PT 11.3 (9.4-12.5) SECONDS INR 1.0 (0.9-1.3) APTT 33 (25.1-36.5) SECONDS Sodium 132 L (137-145) mmol/L Potassium 3.9 (3.4-5.1) mmol/L Chloride 100 (98-107) mmol/L Carbon Dioxide 28 (22-32) mmol/L BUN 20 H (7-17) mg/dL Creatinine 0.65 (0.52-1.04) mg/dL Estimated GFR > 60 (>60) mL/min BUN/Creatinine Ratio 30.8 H (6-22) Glucose 103 (80-110) mg/dL Calcium 9.3 (8.4-10.2) mg/dL Magnesium 2.0 (1.6-2.3) mg/dL Total Bilirubin 0.6 (0.2-1.3) mg/dL AST 39 H (14-36) IU/L ALT 25 (<35) IU/L Alkaline Phosphatase 61 (38-126) U/L Total Creatine Kinase 112 (30-135) U/L Troponin I < 0.012 (0.01-0.034) ng/mL NT-Pro-B Natriuret Pep 466 H (<450) pg/mL Total Protein 8.0 (6.3-8.2) g/dL Albumin 4.5 (3.5-5.0) g/dL Globulin 3.5 (1.7-4.1) g/dL Albumin/Globulin Ratio 1.3 (1.0-2.8) Lipase 104 (23-300) U/L ECG Data Interpretation: sinus bradycardia. Normal NV. No ST T wave changes MDM Narrative Medical decision making narrative: well-appearing patient presenting to make sure that she was not have a urinary tract infection before the weekend starts. She apparently told walk-in clinic staff that she felt some light chest pressure/ tightness, however this was after seeing that her blood pressure was elevated at the walk-in clinic. In the emergency department the patient states that she feels totally normal and denies any chest tightness or abdominal pain at this time. You can abnormality identified. Troponin undetectable, EKG nonischemic. Urinalysis negative for any signs of infection. On exam patient's abdomen is soft with no reproducible tenderness to light or deep palpation. Patient relieved to know that she was not have a urinary tract infection. She will follow up with her primary care doctor as needed. ED return precautions discussed at bedside. Discharge Plan Departure Patient Disposition: Home Clinical Impression: Normal urinalysis, Normal exam Instructions: DI for General Condition Activity Restrictions/Additional Instructions: Your blood work and EKG were normal. You do not have a urinary tract infection. Your blood pressure was elevated, but your labs are normal and this can be brought down with your medications at home. If you have high blood pressures at home just follow up with your primary care doctor. Prescriptions: No Action spironolactone 25 mg tablet PO simvastatin 10 mg tablet 10 mg PO ONCE PM losartan 25 mg tablet 25 mg PO DAILY carvedilol 25 mg Tablet 12.5 mg PO BID aspirin 81 mg Tablet,Chewable 81 mg PO DAILY hydroxyurea 500 mg Capsule 500 mg PO DAILY Qty: 90 3RF Theracran 650 mg capsule 1,300 mg PO DAILY Rx Instructions: administer with a meal estradiol 0.01 % (0.1 mg/gram) cream 1 g vaginal 2XW Qty: 42.5 5RF Rx Instructions: Do NOT fill until 02/08/2021 Referrals: Toshia Saab DO [Primary Care Provider] - Stand Alone Forms: Patient Portal/API/Survey
[2024-08-26 18:58] VITALS: BP 187/87; PULSE 65; RESP 19; O2SAT 100
[2024-08-26 19:11] LABS: Prothrombin Time 11.3 SECONDS (9.4-12.5)
[2024-08-26 19:13] LABS: PTT Partial Thromboplastin Tim 33 SECONDS (25.1-36.5)
== END 2024-08-26 18:59 | disposition home or self-care (01) ==
PROVIDERS: Emergency Medicine; Emergency Provider Emergency Medicine; PCP Student in an Organized Health Care Education/Training Program
DX: R07.9 Chest pain, unspecified (principal)
CPT/HCPCS: 36415; 71045; 80053; 82550; 83690; 83735; 83880; 84484; 85025; 85610; 85730; 87086; 93005; 99283; 99284

== ENCOUNTER → 2024-12-05 12:19 | Outpatient (CLI) | payer MEDICARE, OTHER, SELFPAY | LOC: LAB 12:19 | PROVIDERS: PCP Student in an Organized Health Care Education/Training Program; Visit Provider Physician Assistant Surgical | DX: R30.0 Dysuria (principal) | CPT/HCPCS: 87086 ==

== ENCOUNTER → 2024-12-20 14:16 | Outpatient (CLI) | payer MEDICARE, OTHER, SELFPAY | PROVIDERS: PCP Student in an Organized Health Care Education/Training Program; Visit Provider Urology | DX: N39.0 Urinary tract infection, site not specified (principal) | CPT/HCPCS: 87086 ==

== ENCOUNTER → 2024-12-30 08:58 | Outpatient (CLI) | payer MEDICARE, OTHER, SELFPAY ==
[2024-12-30 09:46] LABS: Appearance Urine UA CLEAR; Bilirubin Urine UA NEGATIVE (NEGATIVE); Color Urine UA YELLOW; Glucose Urine UA NEGATIVE (Negative); Ketones Urine UA NEGATIVE (NEGATIVE); Leukocyte Esterase Urine UA NEGATIVE (NEGATIVE); Nitrite Urine UA NEGATIVE (Negative); Occult Blood Urine UA NEGATIVE (Negative); Protein Urine UA NEGATIVE (Negative); Specific Gravity Urine UA 1.015 (1.000-1.035); Urobilinogen Urine UA 0.2 E.U./dL (0.2)
[2024-12-30 09:47] LABS: pH Urine UA 5.5 (4.5-8.0)
[2024-12-30 09:50] LABS: Bacteria Urine None Seen; Culture Indicated Urine Cult Not Indicated; RBC Urine None Seen (0-5/HPF); Squamous Epithelial Cell Urine 1-5 /HPF (0-5/HPF); Urine Volume 10mL (spun); WBC Urine None Seen (0-5/HPF)
== END ==
LOC: LAB 09:00
PROVIDERS: PCP Family Medicine; Referring Provider Family Medicine; Visit Provider Family Medicine
DX: N39.0 Urinary tract infection, site not specified (principal)
CPT/HCPCS: 81001

== ENCOUNTER 2025-08-28 13:52 | Emergency (ER) | payer MEDICARE, OTHER, SELFPAY ==
[2025-08-28] VITALS (30 sets, daily range): BP systolic 166–229; BP diastolic 79–102; PULSE 59–75; RESP 6–24; TEMP 36.6; O2SAT 94–98
--- OUTSIDE RECORDS SUMMARY | 2025-08-28 13:55 | XMS_ITS | Clinical Summary ---
Author Organization [facility] Address [address] [place] [address] Care Team Providers Care Health Policy Nurse Name Role Phone Leann Cruz Primary Care Provider [phone] Allergies Active Allergy Reactions Criticality Noted Date Comments Lisinopril Cough Low 02/19/2021 Nitrofurantoin Itching Medium 11/18/2022 Causes severe itching Medications aspirin 81 mg EC tablet Take 1 tablet (81 mg total) by mouth daily 10/24/19 18 Active cranberry fruit extract (THERACRAN ORAL) Take 1 capsule by mouth daily Active lutein 20 mg capsule 20 mg daily Active mupirocin (BACTROBAN) 2 % ointment 04/14/20 24 Active losartan (COZAAR) 25 mg tablet Take 1/2 tablets (12.5 mg total) by mouth 2 (two) times a day 90 tablet 2 01/10/20 25 Active Additional Information Patient taking differently: 12.5 mg oral Daily, Reported on 05/09/2025 hydroxyurea (HYDREA) 500 mg capsuleIndications :Essential thrombocytosis (CMS/HCC) Take1 capsule (500 mg total) by mouth every morning 90 capsule 3 04/10/20 25 026 Active simvastatin (ZOCOR) 10 mg tablet Take 1 tablet (10 mg total) by mouth nightly 90 tablet 3 05/09/20 25 Active carvediloL (COREG) 25 mg tablet Take 1 tablet (25 mg total) by mouth 2 (two) times a day with meals 180 tablet 3 06/16/20 25 Active erythromycin (ROMYCIN) ophthalmic ointment 06/09/20 25 Active moxifloxacin (VIGAMOX) 0.5 % ophthalmic solution 06/09/20 25 Active Active Problems Problem Noted Date Diagnosed Date Nonrheumatic mitral valve regurgitation 10/26/19 24 Interatrial cardiac shunt 10/26/2023 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 No alarming findings on exam. Ordered x-rays to rule out occult fractures, make sure hip replacement is stable. Declines PT at this time but will let us know. Continue to take Tylenol as needed and stretching exercises History of lacunar cerebrovascular accident 01/05 Assessment & Plan (02/18/2023 1:56 PM PDT): Given history of lacunar CVA, advised patient that the recommendations are not to interrupt aspirin 81 mg daily for interventions Recurrent UTI 10/24/2021 Assessment & Plan (10/24/2021 6:01 PM PST): Estradiol cream 0.0125% for frequent UTIs with Dr. Marinelli 1 g vaginally 2 times per week. Has been on it for a few years. It is very costly so we sill switch to estrace SIADH (syndrome of inappropriate ADH production) 11/23/2020 Assessment & Plan (03/02/2024 2:45 PM PDT): Patient's sodium levels have seemed to increase now in the mid to upper 130s. We will continue to monitor. Recall that hydrochlorothiazide was previously discontinued. Assessment & Plan (11/10/2023 2:46 PM PST): Patient's sodium levels have been persistently in the upper 120s-low 130s. We will continue to monitor. They have previously made changes to her hydrochlorothiazide dosing. Assessment & Plan (10/24/2021 6:01 PM PST): Patient's sodium levels have been persistently in the upper 120s-low 130s. Cr 0.65. We will continue to monitor. They have previously made changes to her hydrochlorothiazide dosing. Shortness of breath 01/25/2020 Essential hypertension 01/25/2020 Assessment & Plan (12/24/2022 12:40 PM PDT): Hypertension is improving with treatment. Advised patient to check on blood pressure readings and if persistently greater than 140/90 to follow-up. Otherwise continue current regimen follow-up with cardiology as scheduled Continue current treatment regimen. Regular aerobic exercise. Blood pressure will be reassessed at the next regular appointment. Assessment & Plan (10/24/2021 6:00 PM PST): Hypertension is unchanged. Patient's blood pressure is elevated in clinic today 192/88. She is asymptomatic at this time. No focal neuro deficits on exam. She states that home blood pressure readings are better controlled. She feels that this is exacerbated by recent visit to the sustainability project manager prior to this visit increased anxiety. Advised patient to resume her home blood pressure regimen when she gets home. We discussed alarming symptoms that would warrant ED evaluation. Goal per her attorney general is less than 150/90 Continue current treatment regimen. Regular aerobic exercise. Blood pressure will be reassessed at the next regular appointment. Dyslipidemia 01/25/2020 Assessment & Plan (03/02/2024 2:44 PM PDT): Chronic, stable. Continue simvastatin 10 mg nightly. Recall history of CVA. Repeat lipid panel to reevaluate Assessment & Plan (10/24/2021 6:00 PM PST): Chronic, stable. Continue simvastatin 10 mg nightly PAC (premature atrial contraction) 01/25/2020 Encounters Date Type Department Care Team Description 08/28/2025 Telephone [facility] Cardiology [address], [place] [phone] Jake Lomax MD 08/23/2025 Telephone [facility] Oncology [address], [address] [place] [address] Carla Tanner Faxed orders to [facility] 06/14/2025 11:00 AM PDT Office Visit [facility] Oncology [address], [address] [place] [address] Jimbo Pantoja MD Essential thrombocytosis (CMS/HCC); Encounter for chemotherapy management; Encounter for hematology follow-up 06/14/2025 Telephone [facility] Oncology [address], [address] [place] [address] Carla Tanner caller hang up 06/13/2025 Telephone [facility] Oncology [address], [address] [place] [address] Josefina Deleon RN patient returning someone's call re:appointment 06/13/2025 Refill [facility] Cardiology [address], [place] [address] Jake Lomax MD from Last 3 Months Immunizations Immunization Administration Dates Next Due DTaP, Unspecified 05/01/2009 FLU 18+ Egg Free (FluBlok) (Quadrivalent) 06/25/2017,05/19/2016 FLU High Dose 65+ Trivalent, PF (FLUZONE) 07/07/2019,06/16/2018 FLU PF 6+Mos Trivalent 0.5ML (Fluzone, FluLaval, Fluarix) 05/25/2023,06/23/2022,07/05/2021,06/13,07/03/2014,06/17/2011 FLU PF 6-35 Mo (Fluzone 0.25 mL Syringe) Quad 06/13/2015 INFLUENZA, HIGH-DOSE, RAVEN VALENT, PRESERVATIVE FREE 07/05/2021 Influenza, Seasonal, Injectable 07/03/2014,06/17 Live Zoster (Zostavax) 06/17/2011,03/31/2011 Yymglb-ZUHB-VrN-2 Trs-sucr Vaccine 01/27/2022 Tufgje-AOAE-RtV-2 Vaccine 01/27/2022,12/03/2020, 11/05/2020 Pneumococcal Conjugate PCV13 (Frjskqa91) 07/19/2015 Pneumococcal Polysaccharide PPV23 ([id number]) 09/08/2017,05/01/2009 Recombinant Zoster (Shingrix) 09/12/2022, 022 Respiratory syncytial virus(RSV),(Abrysvo) 05/25/2023 TD Preservative Free (Generic) 05/01/2009 Tdap (Boostrix,Adacel) 01/21/2022 Family History Medical History Relation Comments Cancer Father's Brother Breast cancer Father's Sister Relation Status Comments Father's Brother Father's Sister Social History Tobacco Use Types Packs/Day Years Used Date Smoking Tobacco: Never Smokeless Tobacco: Never Tobacco Cessation:Counseling Given: Not Answered Alcohol Use Standard Drinks/Week Comments Not Currently 0 (1 standard drink = 0.6 oz pur e alcohol) wine occasionally AUDIT-C Answer Date Recorded Q1: How often do you have a drink containing alc ohol? Monthly or less 03/02/2024 Q2: How many drinks containi ng alcohol do you have on a typical day when you are drinking? 1 or 2 03/02/2024 Q3: How often do you have si x or more drinks on one occasion? Never 03/02/2024 PHQ-2 Answer Date Recorded PHQ-2 Score 1 03/02/2024 Comments Unknown Sex and Gender Information Value Date Recorded Sex Assigned at Female 2021 6:12 PM PST Legal Sex Female 2:01 PM PDT Gender Identity Female 2021 6:12 PM PST Sexual Orientation Bisexual 2021 6: 12 PM PST Last Filed Vital Signs Vital Sign Reading Time Taken Comments Blood Pressure 155/70 06/14/2025 11:03 AM PDT Pulse 64 06/14/2025 11:03 AM PDT Temperature 36.2 C (97.2 F) 06/14/2025 11:03 AM PDT Respiratory Rate 16 06/14/2025 11:03 AM PDT Oxygen Saturation 98% 06/14/2025 11:03 AM PDT Inhaled Oxygen Concentration - - Weight 57.6 kg (127 lb) 06/14/2025 11:03 AM PDT Height 157.5 cm (5' 2.01) 06/14/2025 11:03 AM P DT Body Mass Index 23.22 06/14/2025 11:03 AM PDT Plan of Treatment Upcoming Encounters Date Type Department Care Team (Late st Contact Info) Description 09/11/2025 11:00 AM PST Office Visit [facility] Oncology [address], [address] [place] [phone] Jimbo Pantoja MD [address] [place] [address] Health Maintenance Due Date Last Done Comments Depression Screening (PHQ-2) 03/02/2025 03/02/2024, 02/18/2023, 01/21/2022, Additional history exists Fall Risk Screening 03/02/2025 03/02/2024, 02/18/2023, 01/21/2022, Additional history exists Medicare Annual Wellness (AWV) 03/09/2025 03/02/2024, 02/18/2023, 01/21/2022 COVID-19 Vaccine ( season) 2025 06/16/2024, 06/23/2022, 01/27/2022, Additional history exists Influenza Vaccine (#1) 2025 , 05/25/2023, 06/23/2022, Additional history exists DTaP,Tdap,and Td Vaccines (4 - Td or Tdap) 01/22/2032 01/21/2022, 05/01/2009, 05/01/2009 Varicella Vaccines Discontinued 06/17/2011, 03/31/2011 HM Pneumococcal Adult 50+ Completed 2017, 07/19/2015, 05/01/2009 HM Pneumococcal Combined Age 0-49 Discontinued 09/08/2017, 07/19/2015, 05/01/2009 Zoster Vaccines Completed 09/12/2022, 01/06, 06/17/2011, Additional history exists RSV Patients Over 60 years OR qualifying ( Patients) Completed 05/25/2023 HPV Vaccines Aged Out No longer eligi ble based on patient's age to complete this topic Hepatitis A Vaccines Aged Out No long er eligible based on patient's age to complete this topic Hepatitis B Vaccines Aged Out No long er eligible based on patient's age to complete this topic IPV Vaccines Aged Out No longer eligi ble based on patient's age to complete this topic MMR Vaccines Aged Out No longer eligi ble based on patient's age to complete this topic Procedures Procedure Name Priority Date/Time Associated Diagnosis Comments MANUAL DIFFERENTIAL Routine 06/14/2025 1 0:28 AM PDT Essential thrombocytosis (CMS/HCC) Encounter for chemotherapy management Encounter for hematology follow-up COMPLETE BLOOD COUNT WITH DIFF RESULT Routine 06/14/2025 10:28 AM PDT Essential thrombocytosis (CMS/HCC) Encounter for chemotherapy management Encounter for hematology follow-up COMPLETE BLOOD COUNT WITH DIFF Routine 06/14/2025 10:28 AM PDT Essential thrombocytosis (CMS/HCC) Encounter for chemotherapy management Encounter for hematology follow-up [facility], BLOOD Routine 06/14/2025 10:28 AM PDT Essential thrombocytosis (CMS/HCC) Encounter for chemotherapy management Encounter for hematology follow-up COMPREHENSIVE METABOLIC PANEL Routine 06/14/2025 10:28 AM PDT Essential thrombocytosis (CMS/HCC) Encounter for chemotherapy management Encounter for hematology follow-up from Last 3 Months Results * (ABNORMAL) Complete blood count with diff (06/14/2025 10:28 AM PDT) WBC Auto 4.0 3.8 - 10.1 x10e3/uL 06/14/2025 11:04 AM [facility] RBC 2.65(L) 3.90 - 5.20 x10e6/uL 06/14/2025 11:04 AM [facility] Hemoglobin 10.8(L) 12.0 - 15.6 g/dL 06/14/2025 11:04 AM [facility] Hematocrit 32.4(L) 35.0 - 46.0 % 06/14/2025 11:04 AM [facility] MCV 122(H) 81 - 100 fL 06/14/2025 11:04 AM PDT [facility] MCH 40.8(H) 27.0 - 35.0 pg 06/14/2025 11:04 AM PDT [facility] MCHC 33.3 32.0 - 37.0 g/dL 06/14/2025 11:04 AM PDT [facility] RDW 12.7 12.3 - 15.4 % 06/14/2025 11:04 AM PDT [facility] Platelets 203 150 - 400 x10e3/uL 06/14/2025 11:04 AM [facility] MPV 11.0(H) 7.4 - 10.4 fL 06/14/2025 11:04 AM [facility] Blood Venous blood / Unknown Venipuncture / Unknown 06/14/2025 10:28 AM PDT 06/14/2025 10:28 AM PDT [facility] BLOOD ORDERABLES Final R esult [facility] [address] [place] [address], * (ABNORMAL) Manual differential (06/14/2025 10:28 AM PDT) % Neutrophils Segmented, Manual 77 % 06/14/2025 11:05 AM [facility] % Lymphocytes, Manual 12 % 06/14/2025 11:05 AM [facility] % Monocytes, Manual 9 % 06/14/2025 11:05 AM [facility] % Eosinophils, Manual 1 % 06/14/2025 11:05 AM PDT [facility] % Basophils, Manual 1 % 06/14/2025 11:05 AM [facility] Abs. Segs, Manual 3.1 1.6 - 6.9 x10e3/uL 06/14/2025 11:05 AM PDT [facility] Abs. Lymphocytes, Manual 0.5(L) 1.1 - 4.8 x10e3/uL 06/14/2025 11:05 AM PDT [facility] Abs. Monocytes, Manual 0.4 0.0 - 1.0 x10e3/uL 06/14/2025 11:05 AM PDT [facility] Abs. Eosinophils, Manual 0.0 0.0 - 0.5 x10e3/uL 06/14/2025 11:05 AM PDT [facility] Abs. Basophils, Manual 0.0 0.0 - 0.4 x10e3/uL 06/14/2025 11:05 AM PDT [facility] Total Counted 100 06/14/2025 11:05 AM PDT [facility] Abs. Neutrophils (Manual) 3,080.0 1,600.0 - 6,900.0 /uL 06/14/2025 11:05 AM [facility] WBC Morphology Normal 06/14/2025 11:05 AM [facility] RBC Morphology Normal 06/14/2025 11:05 AM PDT [facility] Platelet Morphology Normal 06/14/2025 11:05 AM [facility] Blood Venous blood / Unknown Venipuncture / Unknown 06/14/2025 10:28 AM PDT 06/14/2025 10:28 AM PDT [facility] BLOOD ORDERABLES Final R esult Performing Organization Address City/State/[facility] Co de Phone Number [facility] [address] [place] [address], * [facility], Blood (06/14/2025 10:28 AM PDT) Lactate Dehydrogenase (LDH), Serum/Plasma 246 120 - 246 U/L LAB CHEMISTRY METHOD 06/14/2025 2:35 PM PDT [facility] Blood Venous blood / Unknown Venipuncture / Unknown 06/14/2025 10:28 AM PDT 06/14/2025 10:28 AM [facility]OD [facility] Final R esult [facility] [address] [place] [address], * (ABNORMAL) Comprehensive Metabolic Panel (06/14/2025 10:28 AM [facility]) Sodium, Serum/Plasma 137 135 - 145 mmol/L LAB CHEMISTRY METHOD 06/14/2025 11:06 AM [facility] Potassium, Serum/Plasma 4.0 3.5 - 5.2 mmol/L LAB CHEMISTRY METHOD 06/14/2025 11:06 AM [facility] Chloride, Serum/Plasma 103 98 - 107 mmol/L LAB CHEMISTRY METHOD 06/14/2025 11:06 AM [facility] CO2, Serum/Plasma 26 22 - 30 mmol/L LAB CHEMISTRY METHOD 06/14/2025 11:06 AM [facility] Anion Gap, Serum/Plasma 8 3 - 11 mmol/L 06/14/2025 11:06 AM [facility] Urea Nitrogen, Serum/Plasma 19.5 8.0 - 27.0 mg/dL LAB CHEMISTRY METHOD 06/14/2025 11:06 AM [facility] Creatinine, Serum/Plasma 0.64 0.57 - 1.00 mg/dL LAB CHEMISTRY METHOD 06/14/2025 11:06 AM [facility] Glucose, Serum/Plasma 87 65 - 99 mg/dL LAB CHEMISTRY METHOD 06/14/2025 11:06 AM [facility] Calcium, Serum/Plasma 8.8 8.5 - 10.1 mg/dL LAB CHEMISTRY METHOD 06/14/2025 11:06 AM [facility] AST, Serum/Plasma 31 14 - 36 U/L LAB CHEMISTRY METHOD 06/14/2025 11:06 AM [facility] ALT, Serum/Plasma 17 <35 U/L LAB CHEMISTRY METHOD 06/14/2025 11:06 AM [facility] Alkaline Phosphatase, Serum/Plasma 47 25 - 165 U/L LAB CHEMISTRY METHOD 06/14/2025 11:06 AM [facility] Total Protein, Serum/Plasma 6.7 6.3 - 8.2 g/dL LAB CHEMISTRY METHOD 06/14/2025 11:06 AM [facility] eGFR, Serum/Plasma (CKD-EPI 2020) 86 >60 (CKD-EPI 2020) mL/min/1. 73 m2 06/14/2025 11:06 AM [facility] Comment: eGFR calculation has been updated by recommendation of the National Kidney Foundation (NKF) without the race variable. This change was made on November 24, 2022 Interpretation for GFR in Chronic Kidney Disease can be viewed below. Albumin, Serum/Plasma 3.9 3.4 - 5.0 g/dL LAB CHEMISTRY METHOD 06/14/2025 11:06 AM [facility] Bilirubin, Total, Serum/Plasma <0.90 0.2 - 1.3 mg/dL LAB CHEMISTRY METHOD 06/14/2025 11:06 AM [facility] BUN/Creatinine Ratio, Serum/Plasma 30.5(H) 6.0 - 24.0 06/14/2025 11:06 AM [facility] Blood Venous blood / Unknown Venipuncture / Unknown 06/14/2025 10:28 AM PDT 06/14/2025 10:28 AM PDT [facility] - 06/14/2025 11:06 AM [facility] Interpretive Data The estimated glomerular filtration rate (eGFR) was calculated using the 2020 CKD-EPI eGFR creatinine equation, which does not include race as a factor. This equation is validated in individuals 18 years of age and older. Accurate estimation of GFR requires stable day-to-day creatinine. Creatinine-based eGFR is less accurate in patients with extremes of muscle mass, restriction of dietary protein, ingestion of creatine, extra-renal metabolism of creatinine, or treatment with medications that affect renal tubular creatinine secretion. The eGFR is normalized to a body surface area of 1.73 square meters. GFR Categories in Chronic Kidney Disease (CKD) GFR Category GFR (mL/min/1.73 square meters) Interpretation G1 90 or greater Normal to high* G2 60-89 Mild decrease* G3a 45-59 Mild to moderate decrease G3b 30-44 Moderate to severe decrease G4 15-29 Severe decrease G5 14 or less Kidney failure *In the absence of evidence of kidney damage, neither GFR category G1 nor G2 fulfill the criteria for CKD (Kidney Int Suppl 2013;3:1-150) us [facility] BLOOD ORDERABLES Final R esult [facility] [address] [place] [address], [place] [phone] from Last 3 Months Insurance [employer] MEDICARE PART A AND B Advance Directives Documents on File Type Date Recorded 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
--- NOTE | 2025-08-28 14:08 | DI.RAD.S_ITS ---
PROCEDURE: XR CHEST 1V INDICATIONS: Chest Pain TECHNIQUE: One view of the chest was acquired. COMPARISON: , CR, XR CHEST 1V, 08/26/2024, 17:45. FINDINGS: Surgical changes and devices: None. Lungs and pleura: Lungs are clear. No pleural effusions or pneumothorax. Mediastinum: Mediastinal contours appear normal. Heart size is normal. Large hiatal hernia. Aortic arch is calcified indicating atherosclerosis. Bones and chest wall: No suspicious bony lesions. Overlying soft tissues appear unremarkable. IMPRESSION: No acute cardiopulmonary abnormality is seen. Large hiatal hernia, as before. Approved by: Kimberly Mckinney M.D.,Ph.D. on 08/28/2025 at 16:30
--- NOTE | 2025-08-28 14:20 | EKG_ITS ---
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
[2025-08-28 14:50] LABS: Alanine Aminotransferase 20 IU/L (<35); Albumin 4.4 g/dL (3.5-5.0); Albumin Globulin Ratio 1.3 (1.0-2.8); Alkaline Phosphatase 68 U/L (38-126); Blood Urea Nitrogen 20 mg/dL (7-17); Calcium 9.2 mg/dL (8.4-10.2); Carbon Dioxide 26 mmol/L (22-32); Chloride 102 mmol/L (98-107); Creatine Kinase 83 U/L (30-135); Estimated Glomerular Filt Rate > 60 mL/min (>60); Globulin 3.3 g/dL (1.7-4.1); Glucose 95 mg/dL (70-99); HEMOLYSIS < 15 (0-50); Lipase 139 U/L (23-300); Magnesium 2.0 mg/dL (1.6-2.3); Potassium 3.8 mmol/L (3.4-5.1); Sodium 134 mmol/L (137-145); Total Protein 7.7 g/dL (6.3-8.2)
[2025-08-28 14:53] LABS: Add Manual Diff / Slide Review NO; Hematocrit 35.9 % (36-46); Hemoglobin 12.4 g/dL (12.0-16.0); Lymphocytes Absolute Auto 500 /uL (1100-4500); Mean Corpuscular HGB Conc 34.6 % (30-36); Mean Corpuscular Hemoglobin 39.4 PG (26-34); Mean Corpuscular Volume 114.0 fL (80-100); Platelet Count 209 X10^3/uL (150-400)
[2025-08-28 14:54] LABS: INR 1.0 (0.9-1.3); Prothrombin Time 11.5 SECONDS (9.4-12.5)
[2025-08-28 14:57] LABS: PTT Partial Thromboplastin Tim 28 SECONDS (25.1-36.5)
[2025-08-28 15:02] LABS: NT-proBNP (BNP-Adult 18+) 181 pg/mL (<450); Troponin I < 0.012 ng/mL (0.01-0.034)
--- NOTE | 2025-08-28 15:02 | ED_ITS ---
HPI - General Adult General Chief complaint: Hypertension Stated complaint: High blood pressure , on BP meds Time Seen by Provider: 08/28/25 15:02 Source: patient Mode of arrival: Ambulatory History of Present Illness HPI narrative: 84-year-old female history of hypertension, dyslipidemia, anxiety, depression, prior CVA, recurrent UTI, postmenopausal atrophic vaginitis, essential thrombocytosis, SIADH, osteopenia, bilateral cataracts, prior hammertoe status post repair removal, macular degeneration presents with elevated blood pressure for the past few days. Patient normally takes losartan 25 mg half tablet twice a day but recently decided to decrease it to 1 tablet a day given that her blood pressure was running in the low 1 teens systolic and at the advice of the cardiology nurse practitioner told to do so. For the past 2 days she noticed despite increasing her dose back to twice a day dosing she has been having dizziness and increased blurred vision in light of her macular degeneration she came in to be evaluated. Patient denies any headache, chest pain, shortness breath, leg pain, leg swelling, nausea, vomiting, diaphoresis, weakness, in the arms, legs, difficulty swallowing, speaking or gait instability. Other than what is stated 14 point review of system is negative Related Data Home Medications ?Medication ?Instructions ?Recorded ?Confirmed aspirin 81 mg chewable tablet 81 mg PO DAILY 11/22/18 04/25/25 carvedilol 25 mg tablet 12.5 mg PO BID 11/22/1804/07 cranberry extract 650 mg capsule 1,300 mg PO DAILY 04/25/25 (Theracran) simvastatin 10 mg tablet 10 mg PO ONCE PM 06/23/24 losartan 25 mg tablet 12.5 mg PO BID 12/28/2404/07 spironolactone 25 mg tablet 25 mg PO Q OTHER DAY 12/2804/25/25 conjugated estrogens 0.625 mg/gram 0.625 mg vaginal DA NEGIN PRN 04/25/25 vaginal cream Previous Rx's ?Medication ?Instructions ?Recorded hydroxyurea 500 mg capsule 500 mg PO DAILY #90 caps Allergies Allergy/AdvReac Type Severity Reaction Status Date / Time lisinopril Allergy Mild Verified 08/28/25 14:09 nitrofurantoin Allergy Mild Rash Verified 08/28/25 14:09 Review of Systems Review of Systems ROS Unobtainable: All systems reviewed & are unremarkable except as noted in HPI and below Patient History Medical History (Updated 08/28/25 @ 18:00 by Augustin Pantoja DO) Cough Lower urinary tract symptoms (LUTS) History of UTI Postmenopausal atrophic vaginitis Skin cancer Chronic UTI CVA (cerebral vascular accident) Urinary calculi Bilateral cataracts H/O Mohs micrographic surgery for skin cancer Anxiety and depression Osteopenia Hyperlipidemia Essential (primary) hypertension Surgical History 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 hip replacement, left S/P dilation and curettage Family History Mother Bipolar depression Father Pneumonia Social History household members: friend(s) Smoking Status: Smoker, status unknown alcohol intake: current substance use type: does not use Smoking Status: Smoker, status unknown alcohol intake frequency: a few times a month Exam Narrative Exam Narrative: GENERAL: [84] year old patient appears stated age. Well-developed patient, in mild distress. HEAD: Atraumatic. Normocephalic. EYES: Pupils equal round and reactive. Extraocular motions intact. No scleral icterus. No injection or drainage. ENT: Nose without bleeding, purulent drainage. Throat without erythema, tonsillar hypertrophy or exudate. Airway patent. NECK: Trachea midline. Non tender CARDIOVASCULAR: Regular rate and rhythm without murmurs, gallops, or rubs. RESPIRATORY: Clear to auscultation. Breath sounds equal bilaterally. No wheezes, rales, or rhonchi. GASTROINTESTINAL: Abdomen soft, non-tender, nondistended. EXTREMITIES: No edema or joint tenderness. BACK: Nontender without deformity or crepitance. No flank tenderness. NEURO: AOx3. SKIN: No rash or erythema of visible areas Initial Vital Signs Initial Vital Signs: Vital Signs Temperature 98 F 08/28/25 14:09 Pulse Rate 75 08/28/25 14:09 Respiratory Rate 17 08/28/25 14:09 Blood Pressure 215/101 H 08/28/25 14:09 Pulse Oximetry 96 08/28/25 14:09 Oxygen Delivery Method Room Air 08/28/25 14:09 Course Orders Ordered: ED Orders 08/28/25 14:08 XR chest 1V Stat EKG-12 Lead Stat 08/28/25 14:20 Complete Blood Count AUTO DIFF Stat Comprehensive Metabolic Panel Stat Lipase Stat Magnesium Stat NT-proBNP (BNP-Adult 18+) Stat PTT Partial Thromboplastin Calin Stat Prothrombin Time INR Stat Troponin & CK Cardiac Panel Stat 08/28/25 15:15 CT head/brain wo con Stat 08/28/25 16:50 Trop I [Troponin I] Stat Discontinued Medications Hydralazine HCl (Hydralazine 20 Mg/Ml Vial) 10 mg IV NOW ONE Stop: 08/28/25 15:16 Last Admin: 08/28/25 16:14 Dose: 10 mg Documented By: JOI Vital Signs Vital signs: Vital Signs - 8 hr 08/28/25 14:09 08/28/25 14:39 08/28/25 14:39 Temperature 98 F Pulse Rate 75 60 Respiratory Rate 17 13 Blood Pressure 215/101 H 218/102 H Pulse Oximetry 96 Oxygen Delivery Method Room Air 08/28/25 15:00 08/28/25 15:00 08/28/25 15:30 Temperature Pulse Rate 59 L 71 Respiratory Rate 14 22 Blood Pressure 203/92 H Pulse Oximetry 94 94 Oxygen Delivery Method Room Air 08/28/25 16:14 08/28/25 16:15 08/28/25 16:16 Temperature Pulse Rate 61 61 Respiratory Rate Blood Pressure 229/98 H Pulse Oximetry 94 96 Oxygen Delivery Method 08/28/25 16:16 08/28/25 16:26 08/28/25 16:26 Temperature Pulse Rate 63 Respiratory Rate 13 Blood Pressure 229/98 H 203/90 H Pulse Oximetry 97 Oxygen Delivery Method 08/28/25 16:30 08/28/25 16:30 08/28/25 16:35 Temperature Pulse Rate 65 65 Respiratory Rate 14 15 Blood Pressure 195/88 H Pulse Oximetry 96 98 Oxygen Delivery Method 08/28/25 16:35 08/28/25 16:40 08/28/25 16:40 Temperature Pulse Rate 66 Respiratory Rate 16 Blood Pressure 182/84 H 175/81 H Pulse Oximetry 98 Oxygen Delivery Method Room Air 08/28/25 16:49 08/28/25 16:52 08/28/25 16:52 Temperature Pulse Rate 72 68 Respiratory Rate 6 L Blood Pressure 175/81 H 174/83 H Pulse Oximetry 98 Oxygen Delivery Method 08/28/25 16:55 08/28/25 16:55 08/28/25 17:00 Temperature Pulse Rate 66 64 Respiratory Rate 6 L 7 L Blood Pressure 172/79 H Pulse Oximetry 98 97 Oxygen Delivery Method 08/28/25 17:00 08/28/25 17:05 08/28/25 17:05 Temperature Pulse Rate 64 Respiratory Rate 7 L Blood Pressure 166/79 H 191/86 H Pulse Oximetry 97 Oxygen Delivery Method 08/28/25 17:10 08/28/25 17:10 08/28/25 17:15 Temperature Pulse Rate 64 64 Respiratory Rate 7 L 16 Blood Pressure 187/85 H Pulse Oximetry 97 97 Oxygen Delivery Method 08/28/25 17:15 08/28/25 17:20 08/28/25 17:20 Temperature Pulse Rate 64 Respiratory Rate 17 Blood Pressure 173/79 H 172/80 H Pulse Oximetry 98 Oxygen Delivery Method 08/28/25 17:25 08/28/25 17:25 08/28/25 17:36 Temperature Pulse Rate 68 62 Respiratory Rate 17 24 Blood Pressure 175/80 H Pulse Oximetry 97 98 Oxygen Delivery Method Room Air 08/28/25 17:38 08/28/25 17:38 08/28/25 17:40 Temperature Pulse Rate 64 66 Respiratory Rate 15 19 Blood Pressure 202/94 H Pulse Oximetry 97 97 Oxygen Delivery Method Room Air 08/28/25 17:40 08/28/25 17:46 08/28/25 17:46 Temperature Pulse Rate 64 Respiratory Rate 17 Blood Pressure 188/88 H 202/95 H Pulse Oximetry 97 Oxygen Delivery Method 08/28/25 17:50 08/28/25 17:50 08/28/25 17:55 Temperature Pulse Rate 64 Respiratory Rate 19 Blood Pressure 197/95 H 188/89 H Pulse Oximetry 98 Oxygen Delivery Method 08/28/25 17:55 08/28/25 18:00 08/28/25 18:00 Temperature Pulse Rate 64 64 Respiratory Rate 23 18 Blood Pressure 190/92 H Pulse Oximetry 97 97 Oxygen Delivery Method 08/28/25 18:05 08/28/25 18:05 08/28/25 18:10 Temperature Pulse Rate 62 Respiratory Rate 17 Blood Pressure 189/91 H 175/86 H Pulse Oximetry 97 Oxygen Delivery Method 08/28/25 18:10 12/22/25 18:21 Temperature Pulse Rate 64 64 Respiratory Rate 18 18 Blood Pressure 181/89 H Pulse Oximetry 98 98 Oxygen Delivery Method Room Air Room Air Medical Decision Making Lab Data 08/28/25 14:20 08/28/25 14:20 Labs: Lab Results 08/28/25 08/28/25 Range/Units 14:20 16:50 WBC 4.3 L (4.5-11.0) X10^3/uL RBC 3.15 L (4.0-5.2) X10^6/uL Hgb 12.4 (12.0-16.0) g/dL Hct 35.9 L (36-46) % MCV 114.0 H (80-100) fL MCH 39.4 H (26-34) PG MCHC 34.6 (30-36) % RDW 12.8 (11.6-14.8) % Plt Count 209 (150-400) X10^3/uL Neut % (Auto) 76.5 H (50-75) % Lymph % (Auto) 12.3 L (25-40) % [place] % (Auto) 9.2 (3-14) % Eos % (Auto) 1.5 L (2-4) % Baso % (Auto) 0.5 (0-2) % Neut # (Auto) 3300 (4086-4551) /uL Lymph # (Auto) 500 L (8247-8957) /uL [place] # (Auto) 400 (0-900) /uL Eos # (Auto) 100 (0-450) /uL Baso # (Auto) 0 (0-100) /uL Platelet Estimate Adequate on smear RBC Morphology See below Macrocytosis 2+ H PT 11.5 (9.4-12.5) SECONDS INR 1.0 (0.9-1.3) APTT 28 (25.1-36.5) SECONDS Sodium 134 L (137-145) mmol/L Potassium 3.8 (3.4-5.1) mmol/L Chloride 102 (98-107) mmol/L Carbon Dioxide 26 (22-32) mmol/L BUN 20 H (7-17) mg/dL Creatinine 0.69 (0.52-1.04) mg/dL Estimated GFR > 60 (>60) mL/min BUN/Creatinine Ratio 29.0 H (6-22) Glucose 95 (70-99) mg/dL Calcium 9.2 (8.4-10.2) mg/dL Magnesium 2.0 (1.6-2.3) mg/dL Total Bilirubin 0.7 (0.2-1.3) mg/dL AST 36 (14-36) IU/L ALT 20 (<35) IU/L Alkaline Phosphatase 68 (38-126) U/L Total Creatine Kinase 83 (30-135) U/L Troponin I < 0.012 < 0.012 (0.01-0.034) ng/mL NT-Pro-B Natriuret Pep 181 (<450) pg/mL Total Protein 7.7 (6.3-8.2) g/dL Albumin 4.4 (3.5-5.0) g/dL Globulin 3.3 (1.7-4.1) g/dL Albumin/Globulin Ratio 1.3 (1.0-2.8) Lipase 139 (23-300) U/L Imaging Data CT scan - head: Radiologist's Impression: [place] [address] CT Scan Report Signed Patient: Laquita Pena MR#: [id number] : 1940 Acct:[id number] Age/Sex: 84 / F Date of Service: 08/28/25 Loc: Accession Number: [id number] Procedure: CT head/brain wo con Ordering Provider: Augustin Pantoja D.O. PROCEDURE: CT HEAD/BRAIN WO CON INDICATIONS: elevated bp dizziness TECHNIQUE: Noncontrast 4.5 mm thick angled axial sections acquired from the foramen magnum to the vertex, with coronal and sagittal reformats. For radiation dose reduction, the following was used: automated exposure control, adjustment of mA and/or kV according to patient size. COMPARISON: [facility], CT, CT HEAD/BRAIN WO CON, 08/03/2024, 11:36. FINDINGS: Image quality: Diagnostic. CSF spaces: Basal cisterns are patent. No extra-axial fluid collections. The ventricles are symmetric in size and shape. Brain: No intracranial bleeds or mass effect. There is cerebral volume loss, with resultant ventricular and sulcal prominence. There are periventricular and deep white matter chronic small vessel ischemic changes. There is intracranial internal carotid artery atherosclerosis. Skull and face: Calvarium and visualized facial bones appear intact, without suspicious lesions. Sinuses: Visualized sinuses and mastoids are clear. IMPRESSION: No acute intracranial pathology. Approved by: Kimberly Mckinney M.D.,Ph.D. on 08/28/2025 at 16:42 Chest x-ray: Radiologist's Impression: [address] [address] XRay Report Signed Patient: Laquita Pena MR#: [id number] : 1940 Acct:[id number] Age/Sex: 84 / F Date of Service: 08/28/25 Loc: ED Accession Number: [id number] Procedure: XR chest 1V Ordering Provider: Penny Fountain D.O. PROCEDURE: XR CHEST 1V INDICATIONS: Chest Pain TECHNIQUE: One view of the chest was acquired. COMPARISON: [facility], , XR CHEST 1V, 08/26/2024, 17:45. FINDINGS: Surgical changes and devices: None. Lungs and pleura: Lungs are clear. No pleural effusions or pneumothorax. Mediastinum: Mediastinal contours appear normal. Heart size is normal. Large hiatal hernia. Aortic arch is calcified indicating atherosclerosis. Bones and chest wall: No suspicious bony lesions. Overlying soft tissues appear unremarkable. IMPRESSION: No acute cardiopulmonary abnormality is seen. Large hiatal hernia, as before. Approved by: Kimberly Mckinney M.D.,Ph.D. on 08/28/2025 at 16:30 ECG Data Interpretation: NSR HR 63 MD 196 QRS [address]-t wave change Change from 08/26/24 MDM Narrative Medical decision making narrative: All lab work, vital signs, nurse triage note, medication list, previous ER visits, and all imaging studies reviewed. CT head and chest x-ray showed no acute process. patient given 10 mg of hydralazine here IVx1. EKG showed normal sinus rhythm heart rate 63 no ischemic changes noted. WBC 4.3 hemoglobin 12.4 platelets 209 INR 1.0 sodium 134 potassium 3.8 chloride 102 BUN 20 creatinine 0.69 glucose 95 magnesium 2.0 LFTs normal 1st set troponin and 2nd set less than 0.012 BNP 181 lipase 139. differential diagnosis hypertensive emergency, urgency, CVA, hemorrhage, CKD, medication adjustment. D/c home to increase losartan and to f/u pcp 1-2 days for recheck. Discharge Plan Departure Patient Disposition: Home Clinical Impression: Hypertensive urgency Instructions: DI for High Blood Pressure Activity Restrictions/Additional Instructions: Return with new or worsening symptoms. Take losartan 50mg once daily. Follow up with pcp 1-2 days for recheck. Prescriptions: No Action simvastatin 10 mg tablet 10 mg PO ONCE PM spironolactone 25 mg tablet 25 mg PO Q OTHER DAY losartan 25 mg tablet 12.5 mg PO BID conjugated estrogens 0.625 mg/gram cream 0.625 mg vaginal DAILY PRN Rx Instructions: apply once daily for two weeks and then reduce to twice weekly carvedilol 25 mg Tablet 12.5 mg PO BID aspirin 81 mg Tablet,Chewable 81 mg PO DAILY hydroxyurea 500 mg Capsule 500 mg PO DAILY Qty: 90 3RF Theracran 650 mg capsule 1,300 mg PO DAILY Rx Instructions: administer with a meal Referrals: Leann Cruz DO [Primary Care Provider, Family Practice] Stand Alone Forms: Patient Portal/API
[2025-08-28 15:12] LABS: Macrocytosis 2+
--- NOTE | 2025-08-28 15:15 | DI.CT.S_ITS ---
PROCEDURE: CT HEAD/BRAIN WO CON INDICATIONS: elevated bp dizziness TECHNIQUE: Noncontrast 4.5 mm thick angled axial sections acquired from the foramen magnum to the vertex, with coronal and sagittal reformats. For radiation dose reduction, the following was used: automated exposure control, adjustment of mA and/or kV according to patient size. COMPARISON: [facility], CT, CT HEAD/BRAIN WO CON, 08/03/2024, 11:36. FINDINGS: Image quality: Diagnostic. CSF spaces: Basal cisterns are patent. No extra-axial fluid collections. The ventricles are symmetric in size and shape. Brain: No intracranial bleeds or mass effect. There is cerebral volume loss, with resultant ventricular and sulcal prominence. There are periventricular and deep white matter chronic small vessel ischemic changes. There is intracranial internal carotid artery atherosclerosis. Skull and face: Calvarium and visualized facial bones appear intact, without suspicious lesions. Sinuses: Visualized sinuses and mastoids are clear. IMPRESSION: No acute intracranial pathology. Approved by: Kimberly Mckinney M.D.,Ph.D. on 08/28/2025 at 16:42
[2025-08-28] MEDS: hydrALAZINE 20 MG/ML VIAL 10 MG IV (16:14)
[2025-08-28 17:21] LABS: Troponin I < 0.012 ng/mL (0.01-0.034)
== END 2025-08-28 18:21 | disposition home or self-care (01) ==
PROVIDERS: Emergency Medicine; Emergency Provider Family Medicine; PCP Family Medicine
DX: I16.0 Hypertensive urgency (principal)
CPT/HCPCS: 36415; 70450; 71045; 80053; 82550; 83690; 83735; 83880; 84484; 85025; 85610; 85730; 93005; 93010; 96374; 99284; J0360

== ENCOUNTER → 2025-09-06 09:46 | Outpatient (CLI) | payer MEDICARE, OTHER, SELFPAY ==
[2025-09-06 11:07] LABS: Add Manual Diff / Slide Review NO; Hematocrit 35.1 % (36-46); Hemoglobin 11.8 g/dL (12.0-16.0); Lymphocytes Absolute Auto 400 /uL (1100-4500); Mean Corpuscular HGB Conc 33.8 % (30-36); Mean Corpuscular Hemoglobin 38.8 PG (26-34); Mean Corpuscular Volume 115.1 fL (80-100); Platelet Count 241 X10^3/uL (150-400)
[2025-09-06 11:26] LABS: HEMOLYSIS < 15 (0-50); Iron 99 ug/dL (37-170)
[2025-09-06 11:27] LABS: Alanine Aminotransferase 18 IU/L (<35); Albumin 4.2 g/dL (3.5-5.0); Albumin Globulin Ratio 1.5 (1.0-2.8); Alkaline Phosphatase 56 U/L (38-126); Blood Urea Nitrogen 25 mg/dL (7-17); Calcium 9.2 mg/dL (8.4-10.2); Carbon Dioxide 28 mmol/L (22-32); Chloride 102 mmol/L (98-107); Estimated Glomerular Filt Rate > 60 mL/min (>60); Globulin 2.8 g/dL (1.7-4.1); Glucose 89 mg/dL (70-99); HEMOLYSIS < 15 (0-50); Potassium 4.0 mmol/L (3.4-5.1); Sodium 137 mmol/L (137-145); Total Protein 7.0 g/dL (6.3-8.2)
[2025-09-06 11:39] LABS: Percent Iron Saturation 32 % (15-50); Total Iron Binding Capacity 313 ug/dL (265-497); Transferrin 264 mg/dL (206-381)
[2025-09-06 12:03] LABS: Ferritin 19 ng/mL (11-264)
[2025-09-06 12:35] LABS: Folate > 20.0 ng/mL (2.76-20.0); Vitamin B12 900 pg/mL (239-931)
== END ==
PROVIDERS: PCP Family Medicine; Referring Provider Internal Medicine Hematology & Oncology; Visit Provider Internal Medicine Hematology & Oncology
DX: Z09 Encounter for follow-up examination after completed treatment for conditions other than malignant neoplasm (principal); D47.3 Essential (hemorrhagic) thrombocythemia
CPT/HCPCS: 36415; 80053; 82607; 82728; 82746; 83540; 83550; 85025